=== PATIENT | male | born 1955 | race Caucasian/White ===

== ENCOUNTER → 2016-10-16 | Outpatient (CLI) | payer OTHER, BC ==
[~2016-10-16] MED LIST: ACET-1138 PO; ACET1TAB84 PO; ADAL40KI INJ; ADAL40KI SC; ASCO10003 PO; ASPEC81 PO; BNT10 PO; CARV6.252 PO; CEPH500C PO; DOXY100C76 PO; FOLI800T PO; HYDR-5688 PO; LOPE1TAB25 PO; LOPE2TAB74 PO; MULTTAB58 PO; OMEGCAP2 PO; ONDA8TAB6 PO; OXYC1TAB3 PO; RXC5 PO; SNK PO; TAMS0.4C38 PO; TRAM-10 PO
[2016-10-16 13:11] LABS: BLOOD UREA NITROGEN 14 mg/dl (7-18); BUN/CREATININE RATIO 15.3 (10-20); CARBON DIOXIDE 27 mmol/L (21-32); CHLORIDE 105 mmol/L (98-107); CREATININE 0.93 mg/dl (0.60-1.40); GLUCOSE 82 mg/dl (70-99); POTASSIUM 3.9 mmol/L (3.5-5.1); SODIUM 140 mmol/L (136-145)
[2016-10-16 13:23] LABS: ALKALINE PHOSPHATASE 60 U/L (45-117); ALT/SGPT 31 U/L (12-78); AST/SGOT 16 U/L (15-37); CHOLESTEROL 174 mg/dl (0-200); CHOLESTEROL/HDL RATIO 3.8; HDL CHOLESTEROL 46 mg/dl; LDL CHOLESTEROL CALCULATED 72 mg/dl; TRIGLYCERIDES 278 mg/dl (0-150); VERY LOW DENSITY LIPOPROT CALC 56 mg/dl
[2016-10-18 12:14] LABS: HEPATITIS C VIRAL RNA BY PCR <15 NOT DETECTED IU/ML (<15); HEPATITIS C VIRAL RNA(LOG) PCR <1.18 NOT DETECTED LOG IU/ML (<1.18)
== END | disposition home or self-care (01) ==
LOC: C.LABPBG 08:13
PROVIDERS: ATTEND Family Medicine
DX: I10 Essential (primary) hypertension (principal); E78.5 Hyperlipidemia, unspecified; R89.9 Unspecified abnormal finding in specimens from other organs, systems and tissues

== ENCOUNTER 2016-12-26 10:01 | Inpatient (IN) | payer OTHER, BC ==
[2016-11-09 14:03] VITALS: BMI 39.0
--- NOTE | 2016-11-09 14:51 | PAT Medication Instructions ---
Service Date Nov 09, 2016. Current Home Medication List Acetaminophen (Tylenol Arthritis Ext Rel), 1,300 MG PO BID PRN for RN Adalimumab (Humira Pen), 40 MCG INJ [id number] Carvedilol (Coreg), 6.25 MG PO BID Dicyclomine HCl (Dicyclomine HCl), 10 MG PO TID PRN for CRAMPING Folic Acid (Folic Acid), 800 MCG PO QAM Loperamide Hcl (Loperamide A-D), 4 MG PO UD PRN for RN Multiple Vitamin (Multivitamin), 1 TAB PO QAM [place]-3 Fatty Acids (Fish Oil), 1,000 MG PO QAM Oxycodone Ir (Roxicodone Ir), 1-2 TAB PO Q4H PRN for Severe Pain Medication Instructions For Your Scheduled Surgery Adalimumab (Humira Pen), 40 MCG INJ [id number] (per surgeon/GI doctor's instructions) - Hold the following medications 2 weeks prior to surgery: [place]-3 Fatty Acids (Fish Oil), 1,000 MG PO QAM - Hold the following medications the morning of surgery: Multiple Vitamin (Multivitamin), 1 TAB PO QAM Folic Acid (Folic Acid), 800 MCG PO QAM Dicyclomine HCl (Dicyclomine HCl), 10 MG PO TID PRN for CRAMPING Loperamide Hcl (Loperamide A-D), 4 MG PO UD PRN for RN - Take the following medications the morning of surgery with a sip of water: Oxycodone Ir (Roxicodone Ir), 1-2 TAB PO Q4H PRN for Severe Pain (can take up to four hours prior to surgery if needed) Acetaminophen (Tylenol Arthritis Ext Rel), 1,300 MG PO BID PRN for RN (if needed) Carvedilol (Coreg), 6.25 MG PO BID - Take the following medications as scheduled the night before surgery: Oxycodone Ir (Roxicodone Ir), 1-2 TAB PO Q4H PRN for Severe Pain Dicyclomine HCl (Dicyclomine HCl), 10 MG PO TID PRN for CRAMPING Carvedilol (Coreg), 6.25 MG PO BID Acetaminophen (Tylenol Arthritis Ext Rel), 1,300 MG PO BID PRN for RN Loperamide Hcl (Loperamide A-D), 4 MG PO UD PRN for RN If you have any questions please call us at [phone] or [phone] ( [place]) or [phone]
--- NOTE | 2016-11-09 15:08 | DIAGNOSTIC IMAGING REPORT ---
CHEST PREADMISSION(PA/LAT) CLINICAL HISTORY: Preoperative evaluation. COMPARISON STUDY: Chest radiograph June 17, 2014. FINDINGS: A left shoulder arthroplasty is partially imaged. Lung volumes are normal. The lungs are clear. There is no pneumothorax or pleural effusion. Cardiac size is normal. Mediastinal contours are normal. There is no evidence of pulmonary edema. IMPRESSION: No acute cardiopulmonary findings. Electronically signed by: Kale Cabrales M.D. 11/09/2016 3:06 PM Dictated Date/Time: 11/09/2016 3:06 PM
[2016-11-09 15:15] LABS: BASO % 0.1 %; BASO ABS # 0.01 K/uL (0-0.2); COMPLETE YES; EOS % 1.5 %; HEMATOCRIT 41.8 % (42-52); IG% 0.1 %; LYMPH % 32.7 %; LYMPH ABS # 2.21 K/uL (1.2-3.4); MEAN CELL VOLUME 84.6 fL (80-100); MEAN CORPUSCULAR HEMOGLOBIN 27.9 pg (25-34); MEAN PLATELET VOLUME 10.8 fL (7.4-10.4); MONO % 12.4 %; NEUT % 53.2 %; PLATELET COUNT 231 K/uL (130-400); RED BLOOD COUNT 4.94 M/uL (4.7-6.1); URINE APPEARANCE CLEAR (CLEAR); URINE BILIRUBIN NEG (NEG); URINE COLOR YELLOW; URINE NITRITE NEG (NEG); URINE PH 5.5 (4.5-7.5); UROBILINOGEN NEG (NEG); WHITE BLOOD COUNT 6.76 K/uL (4.8-10.8); ZZUR CULT IF INDIC CLEAN CATCH NO
[2016-11-09 15:22] LABS: MANUAL MICROSCOPIC REQUIRED? NO; REVIEW REQ? NO
[2016-11-09 15:32] LABS: PROTHROMBIN TIME (PATIENT) 10.5 SECONDS (9.0-12.0)
--- NOTE | 2016-12-25 12:16 | HISTORY & PHYSICAL EXAMINATION ---
DATE OF ADMISSION: 12/26/2016 CHIEF COMPLAINT: Left hip pain. HISTORY OF PRESENT ILLNESS: Mr. Brewster is a 61-year-old male with an acute onset of left hip pain. The patient fell in July and had immediate onset of pain in his left hip. The pain has been progressive since that time. He has failed conservative treatment. He has had narcotic injections and physical therapy. He also uses a cane to ambulate. He is now scheduled for left hip replacement. PAST MEDICAL HISTORY: Crohn's disease, sleep apnea, and hypertension. He denies heart disease, diabetes or DVT. PAST SURGICAL HISTORY: Shoulder replacement in 2008, lumbar decompression in 2015, and RKA in 2011. SOCIAL HISTORY: The patient drinks one drink per week. He denies tobacco use. He lives in a single-olman home. 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 FAMILY HISTORY: Negative for DVT. MEDICATIONS: Carvedilol 6.25 mg 1 tablet b.i.d., omega-3 1280 mg daily, Opti-Men multivitamin 1 tablet daily, folic acid 800 mcg daily, vitamin C 1000 mg daily, Humira 40 mcg q. 2 weeks, dicyclomine 10 mg 3 times daily, loperamide 2 mg, and oxycodone 5 mg p.r.n. ALLERGIES: SULFA. REVIEW OF SYSTEMS: See HPI. Ten other systems reviewed, all negative. PHYSICAL EXAMINATION: VITAL SIGNS: Height 5 feet 10. Weight 269 pounds. BMI 39. GENERAL: This is a well-developed and well-nourished male, who is alert and oriented x3. Mood and affect are appropriate. HEENT: Normocephalic and atraumatic. Mucous membranes are moist and intact. NECK: Supple without lymphadenopathy. HEART: Regular rate and rhythm without murmurs, rubs or gallops. LUNGS: Clear to auscultation without wheezes or rhonchi. ABDOMEN: Soft and nontender. Bowel sounds are equal and active. EXTREMITIES: No ecchymosis, redness or warmth. Thigh and calf are soft and nontender. He has decreased range of motion of the left hip. Range of motion is decreased. He is neurovascularly intact. He has +5/5 strength. He walks with an antalgic gait. X-RAY EXAMINATION: AP and lateral views show joint space narrowing and osteophyte formation of the left hip. IMPRESSION: Degenerative joint disease, left hip. PLAN: The patient will be admitted for a left total hip arthroplasty. We will plan on aspirin for DVT prophylaxis. He will have [facility] for home physical therapy. PCP is Dr. Chantale Gregory.
[~2016-12-26] VITALS: Ht 177.8 cm; Wt 123.7 kg
[2016-12-26] VITALS (7 sets, daily range): BP systolic 115–152; BP diastolic 71–93; PULSE 71–84; TEMP 36.3–37; O2SAT 95–99; Ht 177.8 cm; Wt 123.7 kg
[~2016-12-26 10:01] MED LIST changes: -ACET-1138 PO; +ACETAMINOPHEN 500 MG TAB PO SCH; -ADAL40KI SC; -ASCO10003 PO; -ASPEC81 PO; +BUPIVACAINE 0.5 % 5 MG/1 ML PF 10ML VIAL ONE; +CEFAZOLIN 3000 MG/65 ML D5W 65 ML IV SCH; -CEPH500C PO; +DEXAMETHASONE 4 MG TAB PO SCH; -DOXY100C76 PO; +FAMOTIDINE 20 MG TAB PO SCH; +GABAPENTIN 300 MG CAP PO SCH; -HYDR-5688 PO; +LACTATED RINGER'S 1000ML 1,000 ML IV SCH; +LACTATED RINGER'S 1000ML 500 ML IV ONE; +LACTATED RINGER'S 1000ML IV SCH; -LOPE1TAB25 PO; +METOCLOPRAMIDE HCL 10 MG TAB PO SCH; -ONDA8TAB6 PO; +OXYCODONE HCL 10 MG TABCR (OXYCONTIN) PO SCH; +POLYMYXIN B SULFATE 100,000 UNITS in NSS 100ML IR SCH; +ROPIVACAINE 5MG/ML 30 ML 150 MG, BUPIVACAINE/EPINEPHR 0.5% MPF 30 ML, KETOROLAC TROMETH... INFIL SCH; -RXC5 PO; -SNK PO; -TAMS0.4C38 PO; -TRAM-10 PO; +TRANEXAMIC ACID INJ 1,000 MG in SODIUM CHLORIDE 0.9% 100ML 100 ML IV SCH; +VANCOMYCIN INJ 400 MG in NSS 100ML IR SCH
--- NOTE | 2016-12-26 11:35 | History & Physical Bridge Note ---
H&P Re-Evaluation Bridge Note: I have examined the patient, reviewed the History & Physical and in the interval since the performance of the History & Physical I have noted the following changes of clinical significance: No changes noted
[2016-12-26] MEDS ORDERED: PROPOFOL IV EMULSION 10 MG/ML 20 ML VIAL IV ONE (11:36)
[2016-12-26] MEDS ORDERED: MIDAZOLAM HCL 1 MG/ML 2ML VIAL ONE (11:36)
[2016-12-26] MEDS ORDERED: FENTANYL CITRATE INJ 50 MCG/1 ML 2 ML VIAL ONE (11:36)
[2016-12-26] MEDS ORDERED: LIDOCAINE HCL 2% 2 ML VIAL (20MG/ML) ONE (11:36)
[2016-12-26] MEDS: TRANEXAMIC ACID INJ 1,000 MG in SODIUM CHLORIDE 0.9% 100ML 100 ML IV SCH ×2 (12:03→17:22)
[2016-12-26] MEDS ORDERED: POVIDONE-IODINE OP SOLN 30 ML BTL ONE (12:04)
[2016-12-26] MEDS ORDERED: ORTHO JOINT ANESTHETIC ONE (12:04)
[2016-12-26] MEDS ORDERED: BACITRACIN 50000 UNIT VIAL ONE (12:05)
[2016-12-26] MEDS ORDERED: LACTATED RINGER'S 1000ML 1,000 ML IV PRN (12:21)
[2016-12-26] MEDS ORDERED: ONDANSETRON INJ 2 MG/ML 2 ML VIAL IV PRN ×2 (12:30→15:45)
[2016-12-26] MEDS ORDERED: SUCCINYLCHOLINE CHLORIDE 20 MG/ML 10 ML VIAL IV ONE (13:33)
[2016-12-26] MEDS ORDERED: ROCURONIUM BROMIDE 10 MG/ML 5 ML VIAL ONE (13:34)
[2016-12-26] MEDS ORDERED: HYDROmorphone INJ 2 MG/ML SYR/VIAL ONE (14:09)
[2016-12-26] MEDS ORDERED: MoRPHine SULFATE 2 MG/ML CARP ONE ×2 (14:58→15:19)
--- NOTE | 2016-12-26 15:16 | DIAGNOSTIC IMAGING REPORT ---
INTRAOPERATIVE RADIOGRAPH CLINICAL HISTORY: Left hip arthroplasty. Fluoroscopy time: 12 seconds. FINDINGS: A single spot fluoroscopic view of the left hip is presented. A bipolar left hip arthroplasty is in near anatomic alignment. A single cortical lag screw transfixes the acetabular cup. There is no evidence of fracture on this fluoroscopic image. IMPRESSION: Intraoperative image from a left hip arthroplasty procedure as above. Electronically signed by: Gonzalez Reyna M.D. 12/26/2016 3:15 PM Dictated Date/Time: 12/26/2016 3:14 PM
--- NOTE | 2016-12-26 15:43 | [facility] Post Operative Brief Note ---
Immediate Operative Summary Operative Date December 26, 2016. Pre-Operative Diagnosis Degenerative Joint disease, Left Hip Post-Operative Diagnosis Same as preop MORBID OBESITY Procedure(s) Performed Left total hip artheoplasty. direct anterior approach, Uncemented Surgeon Dr. Naun Aguilar Sales Marketing Manager Surgeon(s) Ansley Morales PA-C Estimated Blood Loss 250 ML Findings djd obese Specimens A. Left Femoral Head Complication(s) None Disposition Recovery Room / PACU
[2016-12-26] MEDS ORDERED: SOD PHOSPHATE/SOD BIPHOSPHATE ENEMA 132 ML BTL PR PRN (15:45)
[2016-12-26] MEDS ORDERED: BISACODYL 10 MG SUPP PR PRN (15:45)
[2016-12-26] MEDS ORDERED: DICYCLOMINE HCL 10 MG CAP PO PRN (15:45)
[2016-12-26] MEDS ORDERED: TRAMADOL HCL 50 MG TAB PO PRN (15:45)
[2016-12-26] MEDS ORDERED: MoRPHine SULFATE 2 MG/ML CARP IV PRN (15:45)
[2016-12-26] MEDS ORDERED: LOPERAMIDE HCL 2 MG CAP PO PRN (15:45)
[2016-12-26] MEDS ORDERED: MAGNESIUM HYDROXIDE SUSP 30 ML UDC PO PRN (15:45)
[2016-12-26] MEDS ORDERED: ALUMINUM/MAGNESIUM/SIMETH (MAALOX MAX) 30 ML UDC PO PRN (15:45)
[2016-12-26] MEDS ORDERED: ZOLPIDEM TARTRATE 5 MG TAB PO PRN (15:45)
[2016-12-26] MEDS ORDERED: METOCLOPRAMIDE HCL INJ 5 MG/ML 2 ML VIAL IV PRN (15:45)
[2016-12-26] MEDS ORDERED: DiphenhydrAMINE HCL 50 MG/ML VIAL IV PRN (15:45)
[2016-12-26] MEDS: FENTANYL CITRATE INJ 50 MCG/1 ML 2 ML VIAL IV PRN ×4 (15:52→16:30)
[2016-12-26] MEDS ORDERED: HYDROmorphone INJ 1 MG/ML SYR IV PRN (16:15)
[2016-12-26] MEDS ORDERED: KETOROLAC TROMETHAMINE 30 MG/ML VIAL ONE (16:21)
--- NOTE | 2016-12-26 16:27 | DIAGNOSTIC IMAGING REPORT ---
LEFT PELVIS/UNILATERAL HIP 1 VIEW CLINICAL HISTORY: Postoperative evaluation. COMPARISON: None FINDINGS: Alignment of the total left hip arthroplasty is anatomic. There is no periprosthetic fracture or unexpected radiopaque foreign body. Drain is in place. There is an acetabular screw. Lumbar spine fusion hardware is partially imaged. Soft tissue calcification of the medial proximal left thigh is chronic. IMPRESSION: Expected findings following total left hip arthroplasty. Electronically signed by: Kale Cabrales M.D. 12/26/2016 4:25 PM Dictated Date/Time: 12/26/2016 4:06 PM
[2016-12-26] MEDS ORDERED: KETOROLAC TROMETHAMINE 30 MG/ML VIAL IV. ONE (16:30)
--- NOTE | 2016-12-26 16:44 | Anesthesiology Progress Note ---
Anesthesia Post Op Note Date & Time December 26, 2016 at 16:44 Vital Signs Pain Intensity: 6 Vital Signs Past 12 Hours Date Time Temp Pulse Resp B/P Pulse Ox O2 Delivery O2 Flow Rate FiO2 12/26/16 16:35 82 14 154/91 98 Nasal Cannula 3 12/26/16 16:25 80 16 152/88 94 Nasal Cannula 3 12/26/16 16:15 76 19 145/90 97 Nasal Cannula 3 12/26/16 16:05 83 15 163/92 99 Mask 10 12/26/16 15:55 80 16 160/87 100 Mask 10 12/26/16 15:45 37.3 86 16 172/94 99 Mask 10 12/26/16 10:10 37 73 20 137/90 95 Room Air Notes Mental Status: alert / awake / arousable, participated in evaluation Pt Amnestic to Procedure: Yes Nausea / Vomiting: adequately controlled Pain: adequately controlled Airway Patency, RR, SpO2: stable & adequate BP & HR: stable & adequate Hydration State: stable & adequate Anesthetic Complications: no major complications apparent
--- NOTE | 2016-12-26 17:39 | OPERATIVE REPORT ---
DATE OF OPERATION: 12/26/2016 PREOPERATIVE DIAGNOSES: 1. Degenerative arthritis, left hip. 2. Morbid obesity, body mass index of 40. POSTOPERATIVE DIAGNOSES: Same. PROCEDURE: Left total hip replacement. SURGEON: Fernando Aguilar MD PICKLE SORTER: JOSH Slater ANESTHESIA: General. BLOOD LOSS: 250 mL. REPLACEMENT FLUIDS: 1800 mL of crystalloid. DRAINS: Hemovac x2. CULTURES: None. COMPLICATIONS: None. COMPONENTS USED: Carney \T\ Nephew Anthology hip system: Acetabulum size 54, femur size 5 standard offset, femoral head 0, neck length 36 mm. NOTE: JOSH Slater was present and assisted throughout due to the complicated nature of this case. She helped with preparation and set up, first assisted throughout and personally closed the fascial, subcutaneous and skin layers and applied the postoperative dressing. DESCRIPTION OF PROCEDURE: Following satisfactory general, the patient was supine. The left leg was placed in the traction device, the right leg in the well leg dean, and the left leg was prepared with ChloraPrep and draped sterilely. Following a surgical time-out, an anterior approach was performed in the interval between the sartorius and tensor muscles. The circumflex femoral vessels were identified and ligated. The approach was difficult and required additional time and effort because of the patient's morbidly obese body habitus. The arthritic femoral neck and head were exposed and trimmed. The femoral neck and head were removed. The acetabular self-retaining retractor was placed. Acetabular exposure was difficult and required extra time. The acetabulum was reamed and under fluoroscopic control, a 54 shell was impacted into an anatomic position and secured with a dome screw. Local anesthetic and the polyethylene liner were placed. Following irrigation, attention was turned to the femur. The femur was prepared up to the size 5. Intraoperative fluoroscopy showed good fit and fill of the proximal canal and temple of leg lengths using fluoroscopic landmarks. The hip was dislocated. The trial component was removed. The final implant was then placed and after irrigation, the hip was reduced with fluoroscopy confirming the position. A Betadine soak was performed. After 5 minutes, the Betadine was irrigated. The capsule was closed with #1 Vicryl interrupted. A drain was placed. The fascia was closed with a running suture of #1 Vicryl. After irrigation, the subcutaneous tissues were closed with #1 and 2-0 Vicryl and the skin with a running subcuticular stitch of 3-0 V-Loc. Dermabond and a dry dressing were applied. The patient was returned to his bed in stable condition. I attest to the content of the Intraoperative Record and any orders documented therein. Any exceptio ns are noted below.
[2016-12-26] MEDS: OXYCODONE HCL IR 5 MG TAB (IMMEDIATE RELEASE) PO PRN ×2 (18:22→22:55)
[2016-12-26] MEDS: D5W AND 1/2NSS + 20MEQ KCL 1,000 ML IV SCH (20:02)
[2016-12-26] MEDS: ASPIRIN 81 MG ECTAB PO SCH (20:54)
[2016-12-26] MEDS: CARVEDILOL 6.25 MG TAB PO SCH (20:54)
[2016-12-26] MEDS ORDERED: SENNA 8.6 MG TAB PO SCH (21:00)
[2016-12-26] MEDS: CEFAZOLIN IV 2,000 MG in DEXTROSE 5% 50ML 50 ML IV SCH (21:25)
[2016-12-26] MEDS: ACETAMINOPHEN 500 MG TAB PO SCH (21:25)
[2016-12-26] MEDS ORDERED: TRANEXAMIC ACID INJ 1,000 MG in SODIUM CHLORIDE 0.9% 100ML 100 ML IV ONE (22:00)
[2016-12-26] MEDS: KETOROLAC TROMETHAMINE 30 MG/ML VIAL IV. SCH (23:47)
[2016-12-27] MEDS: D5W AND 1/2NSS + 20MEQ KCL 1,000 ML IV SCH (03:45)
[2016-12-27 04:10] VITALS: BP 113/77; PULSE 77; TEMP 36.6; O2SAT 94
[2016-12-27 05:48] LABS: COMPLETE YES; HEMATOCRIT 36.4 % (42-52); IG% 0.3 %; LYMPH % 10.9 %; LYMPH ABS # 1.22 K/uL (1.2-3.4); MEAN CELL VOLUME 87.7 fL (80-100); MEAN CORPUSCULAR HEMOGLOBIN 28.4 pg (25-34); MEAN CORPUSCULAR HGB CONC 32.4 g/dl (32-36); MEAN PLATELET VOLUME 10.4 fL (7.4-10.4); MONO % 7.7 %; NEUT % 81.1 %; PLATELET COUNT 206 K/uL (130-400); RED BLOOD COUNT 4.15 M/uL (4.7-6.1); WHITE BLOOD COUNT 11.23 K/uL (4.8-10.8)
[2016-12-27] MEDS: KETOROLAC TROMETHAMINE 30 MG/ML VIAL IV. SCH ×2 (06:03→11:47)
[2016-12-27] MEDS: CEFAZOLIN IV 2,000 MG in DEXTROSE 5% 50ML 50 ML IV SCH (06:03)
[2016-12-27] MEDS: ACETAMINOPHEN 500 MG TAB PO SCH (06:04)
[2016-12-27 06:21] LABS: BUN/CREATININE RATIO 14.1 (10-20); CALCIUM 8.3 mg/dl (8.5-10.1); POTASSIUM 4.6 mmol/L (3.5-5.1)
[2016-12-27 06:50] VITALS: BP 111/66; PULSE 63; TEMP 36.8; O2SAT 91
--- NOTE | 2016-12-27 08:14 | Discharge Instructions ---
Discharge Instructions Date of Service December 27, 2016. Admission Reason for Admission: Left Hip Degenerative Arthritis Discharge Discharge Diagnosis / Problem: SP LEFT LEFT JACKSON Discharge Goals Goal(s): Decrease discomfort, Improve function, Increase independence Activity Recommendations Activity Limitations: per Instructions/Follow-up section . Instructions / Follow-Up Instructions / Follow-Up ACTIVITY RECOMMENDATIONS: SELF CARE INSTRUCTIONS AFTER TOTAL HIP REPLACEMENT : Direct Anterior Approach Until the incision and soft tissues around your hip have healed, there is a possibility that the hip prosthesis could dislocate. A. Hip flexion ( Up & Down out of chair or steps ) may be difficult. This is normal. B. Numbness in front of the thigh is also normal for a few weeks. C. Use hand rails when walking on stairs. D. Wear low heeled shoes with non-slip soles. E. Be sure that your floors are free of things that could trip you - throw rugs , electrical cords, small objects. Avoid wet and waxed floors, especially with crutches and canes. F. Try to walk several times a day with rest periods between. G. Continue with all the exercises taught to you in the hospital. Again, make walking a part of your daily routine. SPECIAL CARE INSTRUCTIONS: VERY IMPORTANT TO READ AND REVIEW A. You may still be at risk for phlebitis and blood clots. 1. Wear surgical stockings (IGNACIA hose) for 2 weeks after surgery to improve circulation and reduce swelling. 2. Take Aspirin 81mg twice daily for 4 weeks or as directed by your doctor. This is your blood thinner. 3. High risk patients may be prescribed a stronger blood thinner if necessary. 4. If you are on Coumadin normally, your family doctor/ross furnace operator should monitor your blood work. Expect a phone call the day of or the day after bloodwork is drawn to adjust your dosage. B. You must take antibiotics before having dental work, bladder, bowel and other surgery. Your doctor will provide you with a permanent card to carry describing precautions. C. Call [facility] if you have a fever, redness or swelling around the incision, cloudy drainage from incision, or sudden increase in pain in your hip, not relieved by your regular pain medication. D. Please call the office at if you have any concerns or questions about your operation or recovery. * YOU MAY SHOWER, NO TUB BATHS UNTIL CLEARED BY YOUR DOCTOR. - Keep an extra close eye on the top portion of your incision. Be sure to keep clean & dry. * WEAR IGNACIA HOSE 20 HOURS PER DAY FOR 2 WEEKS. * YOU MAY PROGRESS FROM A WALKER, TO A CANE, TO INDEPENDENT AT YOUR OWN PACE. * MOST PATIENTS WILL HAVE HOME NURSING FOR THERAPY. IF YOU DECIDE TO DO OUTPATIENT PHYSICAL THERAPY, PLEASE SCHEDULE THIS 3 TIMES PER WEEK. * DERMABOND Prineo- This is a mesh tape dressing that is covered with glue. It should remain in place until the incision is properly healed, usually 10-14 days. This dressing is designed to naturally slough off. You may trim the excess mesh tape as it peels off. Incision may be briefly wet in a shower. Dry immediately by blotting with a clean, dry towel. Do not bath or swim until instructed by your doctor. Do not scratch, rub, or pick at the dressing. Do not apply any topical ointments or lotions until dressing is completely removed and/or instructed by your doctor. There may be a small piece of suture material at one end of your incision. Do not pull or trim this. If it is bothersome or catching on clothing, you may cover it with a band-aid. FOLLOW UP VISIT: If appointment is not already scheduled: Please call [facility] to make a follow-up appointment for 2 weeks after your surgery at . Current Hospital Diet Patient's current hospital diet: Regular Diet Discharge Diet Recommended Diet: Regular Diet Procedures Procedures Performed: Left total hip artheoplasty. direct anterior approach, Uncemented Pending Studies Studies pending at discharge: no Laboratory Results Lipid Panel Test 10/16/16 08:19 Range/Units Triglycerides Level 278 H 0-150 mg/dl Cholesterol Level 174 0-200 mg/dl HDL Cholesterol 46 mg/dl Cholesterol/HDL Ratio 3.8 LDL Cholesterol, Calculated 72 mg/dl Medical Emergencies . Who to Call and When: Medical Emergencies: If at any time you feel your situation is an emergency, please call 911 immediately. . Non-Emergent Contact Non-Emergency issues call your: Surgeon . "Provider Documentation" section prepared by Ansley Morales. . VTE Core Measure Inpt VTE Proph given/why not?: Other Anticoagulation, T.E.D. Stockings, SCD's [place] Drug Monitoring Program Search Results: patient reviewed within database, no issues identified
[2016-12-27] MEDS ORDERED: ACET-1138 PO (08:17)
[2016-12-27] MEDS ORDERED: ASPEC81 PO (08:17)
[2016-12-27] MEDS ORDERED: SNK PO (08:17)
[2016-12-27] MEDS ORDERED: OXYC1TAB3 PO (08:17)
[2016-12-27] MEDS ORDERED: ONDA8TAB6 PO (08:17)
[2016-12-27 08:24] VITALS: BP 104/68; PULSE 75; TEMP 36.6; O2SAT 94
--- NOTE | 2016-12-27 08:52 | DISCHARGE SUMMARY ---
DISCHARGE DIAGNOSIS: Degenerative joint disease, left hip. SECONDARY DIAGNOSIS: None. CONSULTS: None. COMPLICATIONS: None. PROCEDURE: The patient underwent a left total hip arthroplasty, direct anterior approach with Dr. Navin Aguilar on, 12/26/2016. BRIEF HISTORY: Please see previously dictated history and physical. HOSPITAL SUMMARY: The patient was admitted on the above day for the above procedure. Procedure went without complication. Postop day 1, the patient was feeling well without complaints. He denied chest pain or shortness of breath. Vital signs were stable. He was afebrile. Dressing was clean, dry and intact. He was neurovascularly intact. Calves were soft and nontender. Hemovac drained 175 and 100 mL respectively per shift. Hemoglobin was 11.8. The patient began physical therapy per protocol. He was discharged to home later that day in stable condition. For further review, please see the chart. Lab, x-ray data and discharge instructions as per chart.
[2016-12-27] MEDS ORDERED: PANTOprazole SOD 40 MG TAB PO SCH (09:00)
[2016-12-27] MEDS ORDERED: MULTIVITAMIN TAB PO SCH (09:00)
[2016-12-27] MEDS ORDERED: FoLIC ACID TAB 400 MCG TAB PO SCH (09:00)
[2016-12-27] MEDS: ASPIRIN 81 MG ECTAB PO SCH (09:02)
[2016-12-27] MEDS: CARVEDILOL 6.25 MG TAB PO SCH (09:03)
[2016-12-27 10:45] VITALS: BP 123/68; PULSE 70; O2SAT 95
[2016-12-27 11:16] VITALS: BP 104/68; PULSE 75; TEMP 36.6; O2SAT 94
[2016-12-27 12:16] VITALS: BP 108/64; PULSE 78; TEMP 36.7; O2SAT 95
--- NOTE | 2016-12-27 13:15 | Anesthesiology Progress Note ---
Anesthesia Post Op Note Date & Time December 27, 2016 at 13:15 Vital Signs Vital Signs Past 12 Hours Date Time Temp Pulse Resp B/P Pulse Ox O2 Delivery O2 Flow Rate FiO2 12/27/16 12:16 36.7 78 15 108/64 95 Room Air 12/27/16 11:16 36.6 75 15 94 Room Air 12/27/16 08:24 36.6 75 15 104/68 94 Room Air 12/27/16 07:30 Room Air 12/27/16 06:50 36.8 63 19 111/66 91 Room Air 12/27/16 04:10 36.6 77 20 113/77 94 Room Air Notes Mental Status: alert / awake / arousable, participated in evaluation Pt Amnestic to Procedure: Yes Nausea / Vomiting: adequately controlled Pain: adequately controlled Airway Patency, RR, SpO2: stable & adequate BP & HR: stable & adequate Hydration State: stable & adequate Anesthetic Complications: no major complications apparent
== END 2016-12-27 13:43 | disposition home health service (06) | DRG 470 ==
LOC: ENRESERVTM → ENRESERVDT → C.ACU 10:01 → C.3E 11:02
PROVIDERS: ADMIT Orthopaedic Surgery; ATTEND Orthopaedic Surgery
PROC: 0SRB04A Replacement of Left Hip Joint with Ceramic on Polyethylene Synthetic Substitute, Uncemented, Open Approach (ICD-10-PCS; principal; 2016-12-26 12:00)
DX: M16.12 Unilateral primary osteoarthritis, left hip (principal); Z68.41 Body mass index [BMI] 40.0-44.9, adult; K59.00 Constipation, unspecified; G47.33 Obstructive sleep apnea (adult) (pediatric); N40.0 Benign prostatic hyperplasia without lower urinary tract symptoms; I10 Essential (primary) hypertension; D64.9 Anemia, unspecified; M54.10 Radiculopathy, site unspecified; M54.5 Low back pain; Z98.1 Arthrodesis status; E66.01 Morbid (severe) obesity due to excess calories; Z99.89 Dependence on other enabling machines and devices; Z96.619 Presence of unspecified artificial shoulder joint; Z96.651 Presence of right artificial knee joint; Z79.899 Other long term (current) drug therapy; Z79.891 Long term (current) use of opiate analgesic

== ENCOUNTER → 2017-01-01 | Outpatient (CLI) | payer OTHER, BC ==
[~2017-01-01] MED LIST changes: +ACET-1138 PO; -ACET1TAB84 PO; -ACETAMINOPHEN 500 MG TAB PO SCH; +ASPEC81 PO; -BUPIVACAINE 0.5 % 5 MG/1 ML PF 10ML VIAL ONE; -CEFAZOLIN 3000 MG/65 ML D5W 65 ML IV SCH; +CEPH500C PO; -DEXAMETHASONE 4 MG TAB PO SCH; +DOXY100C76 PO; -FAMOTIDINE 20 MG TAB PO SCH; -GABAPENTIN 300 MG CAP PO SCH; -LACTATED RINGER'S 1000ML 1,000 ML IV SCH; -LACTATED RINGER'S 1000ML 500 ML IV ONE; -LACTATED RINGER'S 1000ML IV SCH; -METOCLOPRAMIDE HCL 10 MG TAB PO SCH; +ONDA8TAB6 PO; -OXYCODONE HCL 10 MG TABCR (OXYCONTIN) PO SCH; -POLYMYXIN B SULFATE 100,000 UNITS in NSS 100ML IR SCH; -ROPIVACAINE 5MG/ML 30 ML 150 MG, BUPIVACAINE/EPINEPHR 0.5% MPF 30 ML, KETOROLAC TROMETH... INFIL SCH; +SNK PO; +TAMS0.4C38 PO; -TRANEXAMIC ACID INJ 1,000 MG in SODIUM CHLORIDE 0.9% 100ML 100 ML IV SCH; -VANCOMYCIN INJ 400 MG in NSS 100ML IR SCH
== END ==
LOC: C.LABSPEC 17:09
PROVIDERS: ATTEND Nurse Practitioner Family
DX: R33.9 Retention of urine, unspecified (principal)

== ENCOUNTER 2017-03-21 18:24 | Emergency (ER) | payer OTHER ==
[~2017-03-21] VITALS: Ht 177.8 cm; Wt 120.4 kg
[~2017-03-21 18:24] MED LIST changes: -CEPH500C PO; -DOXY100C76 PO; -TAMS0.4C38 PO
[2017-03-21 18:29] VITALS: Ht 177.8 cm; Wt 120.4 kg
[2017-03-21] MEDS ORDERED: VANCOMYCIN INJ 2,800 MG in SODIUM CHLORIDE 0.9% 500ML 500 ML IV STA (19:07)
[2017-03-21] MEDS ORDERED: SODIUM CHLORIDE 0.9% 500ML 500 ML IV STA (19:07)
[2017-03-21] MEDS ORDERED: SODIUM CHLORIDE 0.9% 1000ML 1,000 ML IV STA (19:07)
[2017-03-21] MEDS ORDERED: CEFTRIAXONE SOD INJ 1 GM ADDVIAL IV STA (19:07)
--- NOTE | 2017-03-21 19:12 | EMERGENCY ROOM VISIT NOTE ---
History Report prepared by Amrita: Pepe Carter Under the Supervision of: Dr. Yamel Phillip M.D. First contact with patient: 18:39 Chief Complaint: INFECTION Stated Complaint: POST OP HIP REPLACEMENT,FEVER,REDNESS AROUND SITE History of Present Illness The patient is a 61 year old male who presents to the Emergency Room with complaints of left hip pain starting about 2 weeks ago. He was having left hip itchiness for the past few weeks. This morning, he started having erythema around the left hip. He denies any worsening pain with ambulation. He rates a pain intensity of 6/10. He also complains of generalized weakness. Yesterday, he started having a fever with the highest temperature of 102.4 degrees Fahrenheit. The patient had a hip replacement by Dr. Aguilar on December 26. Source of History: patient Onset: about 2 weeks ago Position: other (left hip) Symptom Intensity: 6/10 Quality: other (erythema) Associated Symptoms: + fevers, + weakness (generalized) Review of Systems See HPI for pertinent positives & negatives. A total of 10 systems reviewed and were otherwise negative. Past Medical & Surgical Medical Problems: (1) Acute renal failure (2) Crohn's disease (3) Diverticulosis Colon (W/O Ment Of Hemorrhage) (4) Hypertension (5) Hypertension Nos (6) Hypokalemia (7) Hypomagnesemia (8) Hypophosphatemia (9) Knee effusion, right (10) Localized, primary osteoarthritis of the lower leg (11) Lumbar stenosis with neurogenic claudication (12) Obesity, Nos (13) Sepsis (14) Sepsis (15) Small bowel obstruction (16) Small bowel obstruction Surgical Problems: (1) Hip Joint Replacement Status (2) History of knee replacement, total (3) Post-operative state (4) Shoulder Joint Replacement Status Family History FH: heart attack FH: stroke Heart disease Hypertension Social History Smoking Status: Never Smoker Alcohol Use: none Drug Use: none Marital Status: Housing Status: lives with family Occupation Status: employed Current/Historical Medications Scheduled Acetaminophen (Tylenol Extra Strength), 1,000 MG PO Q8 Adalimumab (Humira Pen), 40 MCG INJ [id number] Carvedilol (Coreg), 6.25 MG PO BID Cephalexin Monohydrate (Keflex), 500 MG PO QID Doxycycline Monohydrate (Monodox), 100 MG PO BID Folic Acid (Folic Acid), 800 MCG PO QAM Multiple Vitamin (Multivitamin), 1 TAB PO QAM [place]-3 Fatty Acids (Fish Oil), 1,000 MG PO QAM Tamsulosin Hcl (Flomax), 0.4 MG PO QAM Scheduled PRN Dicyclomine HCl (Dicyclomine HCl), 10 MG PO TID PRN for CRAMPING Loperamide Hcl (Loperamide A-D), 4 MG PO UD PRN for RN Allergies Coded Allergies: Sulfa Antibiotics (Verified Allergy, Intermediate, RASH, 03/21/17) Physical Exam Vital Signs Date Time Temp Pulse Resp B/P (MAP) Pulse Ox O2 Delivery O2 Flow Rate FiO2 03/22/17 00:21 74 18 127/70 98 03/21/17 23:30 70 16 122/65 97 Room Air 03/21/17 20:44 36.9 67 20 175/88 96 Room Air 03/21/17 18:29 37.1 75 18 148/93 95 Room Air Physical Exam Vital signs reviewed. General: Well-appearing, in no significant distress. HEENT: No scleral icterus, PERRLA, neck supple. Atraumatic. Cardiovascular: Regular rate and rhythm, no extra sounds. Pulmonary: Clear to auscultation bilaterally, normal work of breathing. Abdomen: Soft, nontender, nondistended, positive bowel sounds. Musculoskeletal: Atraumatic, no peripheral edema. Neurologic: Patient awake alert and oriented x 3, full strength in all 4 extremities. Cranial nerves 2 through 12 grossly intact. Skin: Warm, dry. Left gluteus has a large 20 cm area of erythema with an irregular edge, no specific lymphangitic streaking, no fluctuance. Well-healing incision to the left hip that does not appear to be involved in the cellulitis. Medical Decision & Procedures ER Provider Diagnostic Interpretation: X-ray results as stated below per interpretation by me and the radiologist: LEFT HIP UNILATERAL 2 VIEWS CLINICAL HISTORY: Left hip cellulitis. COMPARISON: Pelvis and left hip radiographs December 26, 2016. FINDINGS: Alignment of the total left hip arthroplasty is anatomic. There is no periprosthetic fracture or lucency. A linear calcific density within the medial proximal left thigh is chronic and unchanged. An acetabular screw is in place. IMPRESSION: Status post total left hip arthroplasty. Hardware intact. No periprosthetic fracture or lucency. Electronically signed by: Kale Cabrales M.D. 03/21/2017 8:30 PM Dictated Date/Time: 03/21/2017 8:29 PM Laboratory Results 03/21/17 20:00 Red Blood Count 4.78, Mean Corpuscular Volume 86.4, Mean Corpuscular Hemoglobin 26.8, Mean Corpuscular Hemoglobin Concent 31.0, Mean Platelet Volume 10.1, Neutrophils (%) (Auto) 63.4, Lymphocytes (%) (Auto) 25.3, Monocytes (%) (Auto) 10.4, Eosinophils (%) (Auto) 0.7, Basophils (%) (Auto) 0.1, Neutrophils # (Auto ) 5.84, Lymphocytes # (Auto) 2.33, Monocytes # (Auto) 0.96, Eosinophils # (Auto ) 0.06, Basophils # (Auto) 0.01 03/21/17 20:00 Test 03/21/17 20:00 03/21/17 20:06 White Blood Count 9.21 K/uL (4.8-10.8) Red Blood Count 4.78 M/uL (4.7-6.1) Hemoglobin 12.8 g/dL (14.0-18.0) Hematocrit 41.3 % (42-52) Mean Corpuscular Volume 86.4 fL (80-100) Mean Corpuscular Hemoglobin 26.8 pg (25-34) Mean Corpuscular Hemoglobin Concent 31.0 g/dl (32-36) Platelet Count 362 K/uL (130-400) Mean Platelet Volume 10.1 fL (7.4-10.4) Neutrophils (%) (Auto) 63.4 % Lymphocytes (%) (Auto) 25.3 % Monocytes (%) (Auto) 10.4 % Eosinophils (%) (Auto) 0.7 % Basophils (%) (Auto) 0.1 % Neutrophils # (Auto) 5.84 K/uL (1.4-6.5) Lymphocytes # (Auto) 2.33 K/uL (1.2-3.4) Monocytes # (Auto) 0.96 K/uL (0.11-0.59) Eosinophils # (Auto) 0.06 K/uL (0-0.5) Basophils # (Auto) 0.01 K/uL (0-0.2) RDW Standard Deviation 46.3 fL (36.4-46.3) RDW Coefficient of Variation 14.5 % (11.5-14.5) Immature Granulocyte % (Auto) 0.1 % Immature Granulocyte # (Auto) 0.01 K/uL (0.00-0.02) Anion Gap 6.0 mmol/L (3-11) Est Creatinine Clear Calc Drug Dose 91.7 ml/min Estimated GFR () 83.5 Estimated GFR (Non- 72.1 BUN/Creatinine Ratio 13.2 (10-20) Calcium Level 9.0 mg/dl (8.5-10.1) Total Bilirubin 1.1 mg/dl (0.2-1) Direct Bilirubin 0.2 mg/dl (0-0.2) Aspartate Amino Transf (AST/SGOT) 12 U/L (15-37) Alanine Aminotransferase (ALT/SGPT) 23 U/L (12-78) Alkaline Phosphatase 71 U/L (45-117) Total Protein 8.0 gm/dl (6.4-8.2) Albumin 3.1 gm/dl (3.4-5.0) Bedside Lactic Acid Venous 0.87 mmol/L (0.90-1.70) Laboratory results per my review. Medications Administered Medications (Trade) Dose Ordered Sig/Lu Route Start Time Stop Time Status Last Admin Dose Admin Vancomycin HCl 2800 mg/Sodium Chloride 556 ml @ 200 mls/hr ONE STAT IV 03/21/17 19:07 03/21/17 21:53 DC 03/21/17 20:52 200 MLS/HR Ceftriaxone Sodium (Rocephin Inj) 1 gm NOW STAT IV 03/21/17 19:07 03/21/17 19:12 DC 03/21/17 20:52 1 GM Sodium Chloride 500 ml @ 999 mls/hr Q31M STAT IV 03/21/17 19:07 03/21/17 19:37 DC 03/21/17 20:00 999 MLS/HR Sodium Chloride 1,000 ml @ 125 mls/hr Q8H STAT IV 03/21/17 19:07 03/22/17 00:37 DC 03/21/17 20:52 125 MLS/HR ED Course 3315: Past medical records reviewed. The patient was evaluated in room C11B. A complete history and physical examination was performed. 190: Sodium Chloride 1000 ml @ 125 mls/hr IV, Sodium Chloride 500 ml @ 999 mls/ hr IV, Rocephin Inj 1 gm IV, Vancomycin HCl 2800 mg/Sodium Chloride 556 ml @ 200 mls/hr IV 8: I reevaluated the patient who is resting comfortably. I discussed findings with him. He verbalized agreement of the treatment plan. He will be discharged home after he is finished receiving his medications. Medical Decision Differential diagnosis: Etiologies such as cellulitis, abscess, MRSA infection, DVT, necrotizing fasciitis, dermatitis, drug eruption, as well as others were entertained.. This patient was evaluated and appeared to be in no significant distress. IV access was obtained and laboratory work was drawn. The patient was placed on the bus monitor. The large area of cellulitis has no central clearing or fluctuance. Laboratory work reveals a normal white blood cell count, patient is afebrile. He was initially started on IV vancomycin. It was determined that he is stable for discharge and the patient was switched to Keflex and doxycycline. He was discharged to the care of his who will monitor his erythema closely. The patient should have reevaluation of the wound in 24-48 hours. He will return to the ER immediately for worsening of symptoms or any medical concerns. Medication Reconcilliation Current Medication List: was personally reviewed by me Blood Pressure Screening Patient's blood pressure: Elevated blood pressure Blood pressure disposition: Elevated BP felt to be situational Impression Primary Impression: Cellulitis, gluteal, left Scribe Attestation The scribe's documentation has been prepared under my direction and personally reviewed by me in its entirety. I confirm that the note above accurately reflects all work, treatment, procedures, and medical decision making performed by me. Departure Information Dispostion Home / Self-Care Prescriptions Doxycycline Monohydrate (Monodox) 100 Mg Cap 100 MG PO BID for 7 Days, #14 CAP Prov: Yamel Phillip M.D. 03/21/17 Cephalexin Monohydrate (Keflex) 500 Mg Cap 500 MG PO QID, #28 CAP Prov: Yamel Phillip M.D. 03/21/17 Referrals Chantale Morales DO (PCP) Forms HOME CARE DOCUMENTATION FORM, IMPORTANT VISIT INFORMATION, WORK / SCHOOL INSTRUCTIONS Patient Instructions My [facility] Additional Instructions Diagnosis: Left gluteal cellulitis Keflex 500 mg 4 times daily for 7 days. Doxycycline 100 mg twice daily for 7 days. Follow-up with your physician as scheduled tomorrow for reevaluation. Return to the ER for worsening of symptoms, fevers, increased redness or any medical concerns.
[2017-03-21] MEDS ORDERED: TAMS0.4C38 PO (20:11)
[2017-03-21 20:13] LABS: BASO % 0.1 %; BASO ABS # 0.01 K/uL (0-0.2); COMPLETE YES; EOS % 0.7 %; HEMATOCRIT 41.3 % (42-52); IG% 0.1 %; LYMPH % 25.3 %; LYMPH ABS # 2.33 K/uL (1.2-3.4); MEAN CELL VOLUME 86.4 fL (80-100); MEAN CORPUSCULAR HEMOGLOBIN 26.8 pg (25-34); MEAN PLATELET VOLUME 10.1 fL (7.4-10.4); MONO % 10.4 %; NEUT % 63.4 %; PLATELET COUNT 362 K/uL (130-400); RED BLOOD COUNT 4.78 M/uL (4.7-6.1); WHITE BLOOD COUNT 9.21 K/uL (4.8-10.8)
[2017-03-21 20:31] LABS: BUN/CREATININE RATIO 13.2 (10-20); CREATININE 1.1 mg/dl (0.60-1.40); POTASSIUM 3.6 mmol/L (3.5-5.1)
--- NOTE | 2017-03-21 20:32 | DIAGNOSTIC IMAGING REPORT ---
LEFT HIP UNILATERAL 2 VIEWS CLINICAL HISTORY: Left hip cellulitis. COMPARISON: Pelvis and left hip radiographs December 26, 2016. FINDINGS: Alignment of the total left hip arthroplasty is anatomic. There is no periprosthetic fracture or lucency. A linear calcific density within the medial proximal left thigh is chronic and unchanged. An acetabular screw is in place. IMPRESSION: Status post total left hip arthroplasty. Hardware intact. No periprosthetic fracture or lucency. Electronically signed by: Kale Cabrales M.D. 03/21/2017 8:30 PM Dictated Date/Time: 03/21/2017 8:29 PM
[2017-03-21 20:44] VITALS: TEMP 36.9
[2017-03-21] MEDS ORDERED: CEPH500C PO (22:48)
[2017-03-21] MEDS ORDERED: DOXY100C76 PO (22:48)
[2017-03-22 00:21] VITALS: BP 127/70; PULSE 74; O2SAT 98
== END 2017-03-22 00:22 | disposition home or self-care (01) ==
LOC: C.EDB 18:26 → C.EDC 03-22 00:22
DX: L03.116 Cellulitis of left lower limb (principal); I10 Essential (primary) hypertension; K57.30 Diverticulosis of large intestine without perforation or abscess without bleeding; K50.90 Crohn's disease, unspecified, without complications; K56.60 Unspecified intestinal obstruction; M15.0 Primary generalized (osteo)arthritis; Z96.659 Presence of unspecified artificial knee joint; Z96.649 Presence of unspecified artificial hip joint; Z96.619 Presence of unspecified artificial shoulder joint; Z79.899 Other long term (current) drug therapy; Z88.2 Allergy status to sulfonamides; Z82.49 Family history of ischemic heart disease and other diseases of the circulatory system; Z82.3 Family history of stroke

== ENCOUNTER → 2017-07-06 | Outpatient (CLI) | payer OTHER ==
[~2017-07-06] MED LIST changes: -ASPEC81 PO; +CEPH500C PO; -ONDA8TAB6 PO; -OXYC1TAB3 PO; -SNK PO; +TAMS0.4C38 PO
[2017-07-06 12:56] LABS: ALT/SGPT 28 U/L (12-78); BLOOD UREA NITROGEN 17 mg/dl (7-18); BUN/CREATININE RATIO 16.6 (10-20); CALCIUM 8.8 mg/dl (8.5-10.1); CARBON DIOXIDE 27 mmol/L (21-32); CHLORIDE 107 mmol/L (98-107); CHOLESTEROL 166 mg/dl (0-200); CREATININE 1.01 mg/dl (0.60-1.40); GLUCOSE 99 mg/dl (70-99); POTASSIUM 4.2 mmol/L (3.5-5.1); SODIUM 139 mmol/L (136-145); TRIGLYCERIDES 160 mg/dl (0-150); VERY LOW DENSITY LIPOPROT CALC 32 mg/dl
[2017-07-06 13:04] LABS: ALB/GLOB RATIO 0.9 (0.9-2); ALKALINE PHOSPHATASE 60 U/L (45-117); AST/SGOT 19 U/L (15-37); CHOLESTEROL/HDL RATIO 3.1; HDL CHOLESTEROL 54 mg/dl; LDL CHOLESTEROL CALCULATED 80 mg/dl; THYROID STIMULATING HORMONE 0.979 uIu/ml (0.300-4.500)
== END | disposition home or self-care (01) ==
LOC: C.LABPBG 08:31
PROVIDERS: ATTEND Urology
DX: I10 Essential (primary) hypertension (principal); K50.00 Crohn's disease of small intestine without complications; E78.5 Hyperlipidemia, unspecified; N40.0 Benign prostatic hyperplasia without lower urinary tract symptoms

== ENCOUNTER → 2017-09-17 | Day surgery (SDC) | payer OTHER ==
[2017-08-31 13:56] VITALS: BMI 37.0
[~2017-09-17] VITALS: Ht 177.8 cm; Wt 118.2 kg
[~2017-09-17] MED LIST changes: -ACET-1138 PO; -CEPH500C PO; +LIDOCAINE HCL 2% 2 ML VIAL (20MG/ML) ONE; -LOPE2TAB74 PO; +PROPOFOL IV EMULSION 10 MG/ML 20 ML VIAL IV ONE; +SODIUM CHLORIDE 0.9% 500ML 500 ML IV ONE
[2017-09-17 09:45] VITALS: Ht 177.8 cm; Wt 118.2 kg
--- NOTE | 2017-09-17 10:18 | Endo History and Physical ---
History & Physical Date of Service: Sep 17, 2017. Chief Complaint: SCREENING Referring Physician: DR. ANDERS History of Present Illness 61 yo CM who presents for screening colonoscopy. Past Medical History Arthritis, Gastrointestinal Disorder, Sleep Apnea, Hypertension Past Surgical History Hx Cardiac Surgery: No Hx Internal Defibrillator: No Hx Pacemaker: No Hx Abdominal Surgery: Yes (UMBILICAL HERNIA) Hx Post-Op Nausea and Vomiting: No Hx Cancer Surgery: No Hx Thoracic Surgery: No Hx Orthopedic: Yes (L TSA, R TKA, LUMBAR FUSION, L ACHILLES REPAIR, LEFT JACKSON) Hx Urinary Tract Surgery: Yes Family History None Social History Smoking Status: Never Smoker Hx Substance Use: No Hx Alcohol Use: Yes (RARELY) Allergies Coded Allergies: Sulfa Antibiotics (Verified Allergy, Intermediate, RASH, 09/17/17) Current Medications Reported Home Medications Medications Dose Route/Sig Max Daily Dose Days Date Category Flomax (Tamsulosin Hcl) 0.4 Mg Cap 0.4 Mg PO QAM 03/21/17 Reported Humira Pen (Adalimumab) 40 Mg/0.8 Ml Kit 40 Mcg INJ [id number] 11/09/16 Reported Dicyclomine HCl 10 Mg Cap 10 Mg PO TID PRN 06/04/16 Reported Multivitamin (Multiple Vitamin) 1 Tab Tab 1 Tab PO QAM 06/18/15 Reported Folic Acid 800 Mcg Tab 800 Mcg PO QAM 05/18/14 Reported Coreg (Carvedilol) 6.25 Mg Tab 6.25 Mg PO BID 03/04/14 Reported Fish Oil ([place]-3 Fatty Acids) 1 Cap Cap 1,000 Mg PO QAM 12/11/13 Reported Vital Signs Weight (Kilograms): 118.18 Height (Feet): 5 Height (Inches): 10 Date Time Temp Pulse Resp B/P (MAP) Pulse Ox O2 Delivery O2 Flow Rate FiO2 09/17/17 09:51 37.3 78 20 147/77 (100) 96 Room Air Physical Exam General Appearance: WD/WN, no apparent distress Respiratory/Chest: Auscultation: breath sounds normal Cardiovascular: Heart Auscultation: RRR Abdomen: Bowel Sounds: normal Inspection & Palpation: soft, non-distended, no tenderness, guarding & rebound Assessment and Plan Assessment: 61 yo CM who presents for screening colonoscopy. Plan: Proceed with colonoscopy.
--- NOTE | 2017-09-17 10:48 | GI REPORT ---
Procedure Date: 09/17/2017 10:24 AM Procedure: Colonoscopy Indications: Disease activity assessment of Crohn's disease of the small bowel Medicines: Monitored Anesthesia Care Complications: No immediate complications. Estimated Blood Loss: Estimated blood loss: none. Procedure: Pre-Anesthesia Assessment: - Prior to the procedure, a History and Physical was performed, and patient medications and allergies were reviewed. The patient's tolerance of previous anesthesia was also reviewed. The risks and benefits of the procedure and the sedation options and risks were discussed with the patient. All questions were answered, and informed consent was obtained. Prior Anticoagulants: The patient has taken no previous anticoagulant or antiplatelet agents. ASA Grade Assessment: II - A patient with mild systemic disease. After reviewing the risks and benefits, the patient was deemed in satisfactory condition to undergo the procedure. After I obtained informed consent, the scope was passed under direct vision. Throughout the procedure, the patient's blood pressure, pulse, and oxygen saturations were monitored continuously. The scope was introduced through the anus and advanced to the terminal ileum. The colonoscopy was performed without difficulty. The patient tolerated the procedure well. The quality of the bowel preparation was good. The terminal ileum, ileocecal valve, appendiceal orifice, and rectum were photographed. Findings: Localized inflammation, mild in severity and characterized by aphthous ulcerations was found in the terminal ileum. Biopsies were taken with a cold forceps for histology. Several random biopsies were obtained with cold forceps for histology in the entire colon. A 5 mm polyp was found in the sigmoid colon. The polyp was sessile. The polyp was removed with a hot snare. Resection and retrieval were complete. Impression: - Crohn's disease with ileitis. Biopsied. - One 5 mm polyp in the sigmoid colon, removed with a hot snare. Resected and retrieved. - Several random biopsies were obtained in the entire colon. Recommendation: - Resume previous diet. - Continue present medications. - Repeat colonoscopy for surveillance based on pathology results. - Return to primary care physician as previously scheduled. Levi De La Paz DO 09/17/2017 10:47:44 AM This report has been signed electronically. Note Initiated On: 09/17/2017 10:24 AM I attest to the content of the Intraoperative Record and orders documented therein, exceptions below
[2017-09-17 11:16] VITALS: BP 123/72; PULSE 73; O2SAT 96
--- NOTE | 2017-09-17 11:38 | Anesthesiology Progress Note ---
Anesthesia Post Op Note Date & Time Sep 17, 2017 at 11:38 Vital Signs Pain Intensity: 0 Vital Signs Past 12 Hours Date Time Temp Pulse Resp B/P (MAP) Pulse Ox O2 Delivery O2 Flow Rate FiO2 09/17/17 11:16 73 18 123/72 (89) 96 Room Air 09/17/17 11:01 78 18 113/71 (85) 98 Room Air 09/17/17 10:46 81 16 116/63 (80) 98 Room Air 09/17/17 09:51 37.3 78 20 147/77 (100) 96 Room Air Notes Mental Status: alert / awake / arousable, participated in evaluation Pt Amnestic to Procedure: Yes Nausea / Vomiting: adequately controlled Pain: adequately controlled Airway Patency, RR, SpO2: stable & adequate BP & HR: stable & adequate Hydration State: stable & adequate Anesthetic Complications: no major complications apparent
--- NOTE | 2017-09-17 11:41 | Discharge Instructions ---
Endoscopy Patient Instructions Date / Procedure(s) Performed Sep 17, 2017. Colonoscopy Allergy Information Coded Allergies: Sulfa Antibiotics (Verified Allergy, Intermediate, RASH, 09/17/17) Discharge Date / Findings Sep 17, 2017. Crohn's Ileitis s/p biopsies Random colon biopsies Sigmoid colon polyp Medication Instructions Stopped Medication(s): TOOK BP MED CORREG OK to resume all medications today as prescribed Reported Home Medications Medications Dose Route/Sig Max Daily Dose Days Date Category Flomax (Tamsulosin Hcl) 0.4 Mg Cap 0.4 Mg PO QAM 03/21/17 Reported Humira Pen (Adalimumab) 40 Mg/0.8 Ml Kit 40 Mcg INJ [id number] 11/09/16 Reported Dicyclomine HCl 10 Mg Cap 10 Mg PO TID PRN 06/04/16 Reported Multivitamin (Multiple Vitamin) 1 Tab Tab 1 Tab PO QAM 06/18/15 Reported Folic Acid 800 Mcg Tab 800 Mcg PO QAM 05/18/14 Reported Coreg (Carvedilol) 6.25 Mg Tab 6.25 Mg PO BID 03/04/14 Reported Fish Oil ([place]-3 Fatty Acids) 1 Cap Cap 1,000 Mg PO QAM 12/11/13 Reported Provider Instructions Activity Restrictions - No exercising or heavy lifting for 24 hours. - Do not drink alcohol the day of the procedure. - Do not drive a car or operate machinery until the day after the procedure. - Do not make any important decisions or sign important papers in 24 hours after the procedure. Following Day: - Return to full activity which may include returning to work/school. Diet Start your diet with liquids and light foods (jello, soup, juice, toast). Then eat your usual diet if not nauseated. Treatment For Common After Affects For mild abdominal pain, bloating, or excessive gas: - Rest - Eat lightly - Lie on right side Follow-Up Information Follow-up with DR. ANDERS as scheduled Anesthesia Information What You Should Know You have had a procedure that required some medicine to reduce anxiety and discomfort. This treatment is called moderate sedation. After receiving the treatment, you may be sleepy, but you will be able to breathe on your own. The effects of the treatment may last for several hours. Follow these instructions along with Activity/Diet recommendations noted above: * Do NOT do anything where dizziness or clumsiness would be dangerous. * Rest quietly at home today, then you can be up and about tomorrow. * Have a responsible person stay with you the rest of today. * You may have had an I.V. today. If so, you may take the dressing off later today. Recommendations Call your doctor if: * Trouble breathing * Continuous vomiting for more than 24 hours * Temperature above 101 degrees * Severe abdominal pain or bloating * Pain not relieved by pain medicine ordered * There is increased drainage or redness from any incision * A large amount of rectal bleeding greater than 2-3 tablespoons. (If you had a polyp/s removed or have hemorrhoids, a small amount of blood - from the rectum is to be expected.) * You have any unanswered questions or concerns. IN THE EVENT OF A SERIOUS EMERGENCY, GO TO THE NEAREST EMERGENCY ROOM Your discharge instructions were prepared by provider Levi De La Paz. Patient Instructions Signature Page Prakash Brewster Patient (or Guardian) Signature/Date: I have read and understand the instructions given to me by my caregivers. Caregiver/RN/Doctor Signature/Date: The above-named patient and/or guardian has received patient instructions on this date. + Original Patient Signature Page (only) stays with chart. Please make copy for patient.
== END | disposition home or self-care (01) ==
LOC: C.GI 09:34
PROVIDERS: ATTEND Internal Medicine
DX: Z12.11 Encounter for screening for malignant neoplasm of colon (principal); D12.5 Benign neoplasm of sigmoid colon; K52.9 Noninfective gastroenteritis and colitis, unspecified; K50.90 Crohn's disease, unspecified, without complications; E66.9 Obesity, unspecified; G47.33 Obstructive sleep apnea (adult) (pediatric); M19.90 Unspecified osteoarthritis, unspecified site; I10 Essential (primary) hypertension; Z96.651 Presence of right artificial knee joint; Z98.1 Arthrodesis status; Z96.642 Presence of left artificial hip joint

== ENCOUNTER → 2017-09-21 | Outpatient (CLI) | payer OTHER ==
[~2017-09-21] MED LIST changes: -LIDOCAINE HCL 2% 2 ML VIAL (20MG/ML) ONE; -PROPOFOL IV EMULSION 10 MG/ML 20 ML VIAL IV ONE; -SODIUM CHLORIDE 0.9% 500ML 500 ML IV ONE
[2017-09-21 17:12] LABS: BASO % 0.1 %; BASO ABS # 0.01 K/uL (0-0.2); EOS % 0.4 %; EOS ABS # 0.04 K/uL (0-0.5); HEMATOCRIT 37.6 % (42-52); HEMOGLOBIN 12.4 g/dL (14.0-18.0); IG# 0.03 K/uL (0.00-0.02); LYMPH % 20.6 %; LYMPH ABS # 2.27 K/uL (1.2-3.4); MEAN CELL VOLUME 86.2 fL (80-100); MEAN CORPUSCULAR HEMOGLOBIN 28.4 pg (25-34); MEAN PLATELET VOLUME 10.2 fL (7.4-10.4); MONO % 9.9 %; MONO ABS # 1.09 K/uL (0.11-0.59); NEUT % 68.7 %; PLATELET COUNT 345 K/uL (130-400); RED CELL DISTRIBUTION WIDTH CV 13.6 % (11.5-14.5); RED CELL DISTRIBUTION WIDTH SD 42.8 fL (36.4-46.3); WHITE BLOOD COUNT 11.04 K/uL (4.8-10.8)
== END | disposition home or self-care (01) ==
LOC: C.LABPBG 15:47
PROVIDERS: ATTEND Family Medicine
DX: R53.81 Other malaise (principal)

== ENCOUNTER → 2017-10-19 | Outpatient (CLI) | payer OTHER ==
[2017-10-22 15:01] LABS: QUANTIF MITOGEN-NIL 8.61 IU/ML; QUANTIFERON NEGATIVE (NEGATIVE); QUANTIFERON NIL 0.05 IU/ML
== END | disposition home or self-care (01) ==
LOC: C.LABPBG 08:54
PROVIDERS: ATTEND Physician Assistant
DX: K50.00 Crohn's disease of small intestine without complications (principal)

== ENCOUNTER → 2017-11-05 | Outpatient (CLI) | payer OTHER ==
[~2017-11-05] MED LIST changes: +AMOX500C3 PO; +CRG625 PO; +ERGO500011 PO; +FLM4 PO
[2017-11-05 17:57] LABS: BASO % 0.1 %; BASO ABS # 0.01 K/uL (0-0.2); EOS % 0.6 %; EOS ABS # 0.06 K/uL (0-0.5); HEMATOCRIT 35.4 % (42-52); HEMOGLOBIN 11.5 g/dL (14.0-18.0); IG# 0.02 K/uL (0.00-0.02); LYMPH % 18.5 %; LYMPH ABS # 1.96 K/uL (1.2-3.4); MEAN CELL VOLUME 85.9 fL (80-100); MEAN CORPUSCULAR HEMOGLOBIN 27.9 pg (25-34); MEAN CORPUSCULAR HGB CONC 32.5 g/dl (32-36); MEAN PLATELET VOLUME 10.7 fL (7.4-10.4); MONO % 10.8 %; MONO ABS # 1.14 K/uL (0.11-0.59); NEUT % 69.8 %; PLATELET COUNT 340 K/uL (130-400); RED CELL DISTRIBUTION WIDTH CV 16.6 % (11.5-14.5); RED CELL DISTRIBUTION WIDTH SD 52.2 fL (36.4-46.3); WHITE BLOOD COUNT 10.59 K/uL (4.8-10.8)
[2017-11-05 18:41] LABS: BLOOD UREA NITROGEN 12 mg/dl (7-18); CALCIUM 8.9 mg/dl (8.5-10.1); CARBON DIOXIDE 23 mmol/L (21-32); CREATININE 0.84 mg/dl (0.60-1.40); GLUCOSE 102 mg/dl (70-99); POTASSIUM 3.9 mmol/L (3.5-5.1); SODIUM 135 mmol/L (136-145)
== END | disposition home or self-care (01) ==
LOC: C.LABPBG 12:10
PROVIDERS: ATTEND Family Medicine
DX: R50.9 Fever, unspecified (principal); T81.89XA Other complications of procedures, not elsewhere classified, initial encounter; Y84.9 Medical procedure, unspecified as the cause of abnormal reaction of the patient, or of later complication, without mention of misadventure at the time of the procedure

== ENCOUNTER 2017-11-06 15:10 | Inpatient (IN) | payer OTHER ==
[~2017-11-06] VITALS: Ht 177.8 cm; Wt 124.2 kg
[~2017-11-06 15:10] MED LIST changes: -AMOX500C3 PO; -CRG625 PO; -ERGO500011 PO; -FLM4 PO; -FOLI800T PO
[2017-11-06] MEDS ORDERED: FOLI800T PO (15:38)
[2017-11-06] MEDS ORDERED: CRG625 PO (17:38)
[2017-11-06] MEDS ORDERED: AMOX500C3 PO (17:38)
[2017-11-06] MEDS ORDERED: ERGO500011 PO (17:38)
[2017-11-06] MEDS ORDERED: FLM4 PO (17:38)
[2017-11-06] MEDS ORDERED: SODIUM CHLORIDE 0.9% 1000ML 1,000 ML IV STA (17:39)
[2017-11-06] MEDS ORDERED: MoRPHine SULFATE 4 MG/ML 1 ML CARP\\VIAL IV STA (17:39)
[2017-11-06] MEDS ORDERED: MoRPHine SULFATE 2 MG/ML CARP ONE (17:47)
[2017-11-06 18:27] LABS: BASO % 0.1 %; BASO ABS # 0.01 K/uL (0-0.2); EOS % 1.7 %; EOS ABS # 0.16 K/uL (0-0.5); HEMATOCRIT 37.3 % (42-52); IG# 0.02 K/uL (0.00-0.02); LYMPH ABS # 2.04 K/uL (1.2-3.4); MEAN CELL VOLUME 86.9 fL (80-100); MEAN CORPUSCULAR HGB CONC 32.2 g/dl (32-36); MEAN PLATELET VOLUME 10.4 fL (7.4-10.4); MONO % 8.3 %; MONO ABS # 0.77 K/uL (0.11-0.59); NEUT % 67.7 %; NEUT ABS # 6.29 K/uL (1.4-6.5); PLATELET COUNT 356 K/uL (130-400); RED CELL DISTRIBUTION WIDTH CV 16.3 % (11.5-14.5); RED CELL DISTRIBUTION WIDTH SD 52.1 fL (36.4-46.3); WHITE BLOOD COUNT 9.29 K/uL (4.8-10.8)
[2017-11-06 18:37] LABS: ALBUMIN 2.7 gm/dl (3.4-5.0); CALCIUM 9.1 mg/dl (8.5-10.1); CREATININE 0.91 mg/dl (0.60-1.40); POTASSIUM 3.9 mmol/L (3.5-5.1)
[2017-11-06 18:39] LABS: TOTAL PROTEIN 8.4 gm/dl (6.4-8.2)
[2017-11-06] MEDS ORDERED: LORAZEPAM 1 MG TAB PO STA (18:57)
[2017-11-06] MEDS ORDERED: LORAZEPAM 1 MG TAB PO PRN (19:00)
[2017-11-06] MEDS ORDERED: LORAZEPAM INJ 1 MG in SYRINGE 0.5 ML IV PRN (19:00)
[2017-11-06] MEDS ORDERED: IV FLUIDS COMPLETED PRN (19:00)
[2017-11-06] MEDS ORDERED: ACETAMINOPHEN 325 MG TAB PO PRN (19:00)
[2017-11-06] MEDS ORDERED: PROMETHAZINE HCL INJ 12.5 MG in SODIUM CHLORIDE 0.9% 50ML 50 ML IV PRN (19:00)
[2017-11-06] MEDS ORDERED: ONDANSETRON INJ 2 MG/ML 2 ML VIAL IV PRN (19:00)
[2017-11-06] MEDS ORDERED: DICYCLOMINE HCL 10 MG CAP PO PRN (19:00)
--- NOTE | 2017-11-06 19:22 | DIAGNOSTIC IMAGING REPORT ---
CHEST ONE VIEW PORTABLE CLINICAL HISTORY: Evaluate Fever/Sepsis COMPARISON STUDY: Chest radiograph November 09, 2016. FINDINGS: Left shoulder arthroplasty is incidentally noted. Patient is rotated. No pneumothorax or pleural effusion is noted. There is no consolidation. There is no evidence for pulmonary edema. There is borderline cardiomegaly. IMPRESSION: No acute cardiopulmonary findings. Electronically signed by: Kale Cabrales M.D. 11/06/2017 7:21 PM Dictated Date/Time: 11/06/2017 7:20 PM
[2017-11-06 20:50] VITALS: BP 154/78; PULSE 73; TEMP 37.6; O2SAT 95
[2017-11-06 21:03] VITALS: BP 154/78; PULSE 73; TEMP 37.6; O2SAT 95; Ht 177.8 cm; Wt 124.2 kg
--- NOTE | 2017-11-06 21:09 | DIAGNOSTIC IMAGING REPORT ---
MRI OF THE LUMBAR SPINE WITH AND WITHOUT CONTRAST CLINICAL HISTORY: s/p remote fusion, pain, swelling, redness warmth. COMPARISON STUDY: Lumbar spine MRI June 04, 2016 TECHNIQUE: Utilizing a 1.5 Rosalind magnet and dedicated coil, multiplanar, multiecho imaging of the lumbar spine was performed before and after uneventful IV administration of 12 mL of Gadavist. FINDINGS: For purposes of numbering on this exam, the L5-S1 disc space is assigned to axial image 31 of 35. There is 6 mm anterolisthesis of L4 and L5. The patient is status post L4-L5 discectomy with interbody spacer placement. There is a posterior decompression with bilateral pedicle screws at the L3, L4 and L5 levels. Note is made of a complex multiloculated operative bed fluid collection with 2 components which communicate with one another. Subcutaneous component measures 6.7 x 4 x 5.9 cm. This demonstrates peripheral enhancement. This communicates with a laminectomy bed component that measures 4 x 3.6 x 2.3 cm. Smaller components are noted inferiorly, including a 1.9 x 0.9 cm peripherally enhancing fluid collection adjacent to the right transverse process of L4. Increased T2 signal and enhancement is noted within the adjacent paraspinal musculature. No evidence of discitis or osteomyelitis. Conus terminates at the T12-L1 level. L1-2: The central canal and neural foramen are patent. L2-3: There is disc bulge, ligamentous hypertrophy and facet arthrosis that result in moderate narrowing of the central canal and lateral recesses. There is mild narrowing of both neural foramen. L3-4: The central canal and neural foramen are patent. L4-5: The central canal is patent. There is mild narrowing of both neural foramen. L5-S1: The central canal and neural foramen are patent. IMPRESSION: 1. Status post L4-L5 discectomy and L3-L5 laminectomy and bilateral pedicle screw fusion. 2. Several multiloculated rim-enhancing operative bed fluid collections, including a 6.7 x 4 x 5.9 cm subcutaneous fluid collection which communicates with a 4 x 3.6 x 2.3 cm laminectomy bed fluid collection, located adjacent to the hardware. Several additional smaller fluid collections, as described above, with associated signal abnormality and enhancement within the paraspinal musculature. These are nonspecific in the postoperative setting and sterility cannot be assessed by MRI but these findings raise the possibility of an infectious process with abscesses. Complex seromas or pseudomeningocele could appear similar. Correlation with clinical evidence for an infectious process is recommended. 3. Moderate central canal stenosis at L2-L3, as described above. Otherwise, patent central canal. 4. No evidence for discitis or osteomyelitis. 5. Indeterminate 6 cm lower abdominal T2 hyperintense focus. This may simply represent a bowel loop however a follow-up CT of the abdomen and pelvis could be obtained to exclude a fluid collection or cystic lesion. Electronically signed by: Kale Cabrales M.D. 11/06/2017 9:08 PM Dictated Date/Time: 11/06/2017 8:53 PM
[2017-11-06 22:43] VITALS: BP 131/72; PULSE 87
[2017-11-06] MEDS: CARVEDILOL 6.25 MG TAB PO SCH (22:45)
[2017-11-06] MEDS: DOCUSATE SODIUM 100 MG CAP PO SCH (22:45)
[2017-11-06 22:48] VITALS: BP 131/72; PULSE 84; TEMP 38.3; O2SAT 94
--- NOTE | 2017-11-06 23:48 | EMERGENCY ROOM VISIT NOTE ---
History Report prepared by Amrita: Tamiko Burk Under the Supervision of: Dr. Gustavo Alamo M.D. First contact with patient: 17:22 Chief Complaint: OTHER COMPLAINT Stated Complaint: FEVER, SWOLLEN, RED AREA ABOVE LUMBAR, REFEREDBYMD History of Present Illness The patient is a 62 year old male who presents to the Emergency Room with complaints of worsening back pain starting 4 days ago. The patient was sent to the ED by his provider. He had back surgery in 2016. He has had intermittent swelling with over exertion which his orthopedic doctor has told him is normal. 4 days ago, he started having some swelling. 2 days ago, the area started becoming red and painful. The pain worsens with movement and lying on his back. He was started on antibiotics yesterday and had an ultrasound. He was sent to the ED today over concerns of fluid collection in his back. The patient has recently had some flu symptoms. He has had a fever, nausea, lightheadedness, and headache. He denies any abdominal pain, incontinence, urinary symptoms, or change in bowel movement. Source of History: patient Onset: 4 days ago Position: back Quality: other (pain, swelling, redness) Timing: worsening Modifying Factors (Worsening): movement, other (lying on his back) Associated Symptoms: + fevers, + headache, + nausea, No abdominal pain, No urinary symptoms Note: Pt reports lightheadedness. Review of Systems See HPI for pertinent positives and negatives. A total of ten systems were reviewed and were otherwise negative. Past Medical & Surgical Medical Problems: (1) Acute renal failure (2) Back pain (3) Crohn's disease (4) Diverticulosis Colon (W/O Ment Of Hemorrhage) (5) Hypertension (6) Hypertension Nos (7) Hypokalemia (8) Hypomagnesemia (9) Hypophosphatemia (10) Knee effusion, right (11) Localized, primary osteoarthritis of the lower leg (12) Lumbar stenosis with neurogenic claudication (13) Obesity, Nos (14) Sepsis (15) Sepsis (16) Small bowel obstruction (17) Small bowel obstruction Surgical Problems: (1) Hip Joint Replacement Status (2) History of knee replacement, total (3) Post-operative state (4) Shoulder Joint Replacement Status Family History FH: heart attack FH: stroke Heart disease Hypertension Social History Smoking Status: Never Smoker Alcohol Use: none Drug Use: none Marital Status: Housing Status: lives with family Occupation Status: employed Current/Historical Medications Scheduled Adalimumab (Humira Pen), 40 MCG INJ WK Amoxicillin (Amoxil), 500 MG PO TID Carvedilol (Carvedilol), 6.25 MG PO BID Ergocalciferol (Vitamin D 30988 Unit), 50,000 INTER.UNIT PO WK Folic Acid (Folic Acid), 800 MCG PO QAM Multiple Vitamin (Multivitamin), 1 TAB PO QAM [place]-3 Fatty Acids (Fish Oil), 1,000 MG PO QAM Tamsulosin HCl (Tamsulosin HCl), 0.4 MG PO QAM Scheduled PRN Dicyclomine HCl (Dicyclomine HCl), 10 MG PO TID PRN for Abdominal Pain/Cramping Allergies Coded Allergies: Cefdinir (Verified Allergy, Intermediate, Rash, 11/06/17) Sodium Benzoate (Verified Allergy, Intermediate, Rash, 11/06/17) Sulfa Antibiotics (Verified Allergy, Intermediate, RASH, 09/17/17) Physical Exam Vital Signs Date Time Temp Pulse Resp B/P (MAP) Pulse Ox O2 Delivery O2 Flow Rate FiO2 11/06/17 18:28 82 11/06/17 18:25 82 22 125/68 97 11/06/17 17:26 111 22 118/61 97 Room Air 11/06/17 15:37 37.2 81 20 165/82 99 Room Air Physical Exam GENERAL: Awake, alert, uncomfortable-appearing, in no distress HENT: Normocephalic, atraumatic. Dry mucous membranes. EYES: Normal conjunctiva. Sclera non-icteric. NECK: Supple. No nuchal rigidity. FROM. No JVD. RESPIRATORY: Clear to auscultation. CARDIAC: Regular rate, normal rhythm. Extremities warm and well perfused. Pulses equal. ABDOMEN: Soft, non-distended. No tenderness to palpation. No rebound or guarding. No masses. RECTAL: Deferred. MUSCULOSKELETAL: Chest examination reveals no tenderness. The back is symmetrical on inspection with a 6x4 cm area of edema, scant erythema and warmth in the lumbar region. There is no CVA tenderness to palpation. No joint edema. LOWER EXTREMITIES: Calves are equal size bilaterally and non-tender. No edema. No discoloration. 5/5 strength and SILT. NEURO: Normal sensorium. No sensory or motor deficits noted. SKIN: No rash or jaundice noted. Medical Decision & Procedures ER Provider Diagnostic Interpretation: Xray results as stated below per my and radiologist interpretation. Radiology results as stated below per my review and radiologist interpretation: CHEST ONE VIEW PORTABLE CLINICAL HISTORY: Evaluate Fever/Sepsis COMPARISON STUDY: Chest radiograph November 09, 2016. FINDINGS: Left shoulder arthroplasty is incidentally noted. Patient is rotated. No pneumothorax or pleural effusion is noted. There is no consolidation. There is no evidence for pulmonary edema. There is borderline cardiomegaly. IMPRESSION: No acute cardiopulmonary findings. Electronically signed by: Kale Cabrales M.D. 11/06/2017 7:21 PM Dictated Date/Time: 11/06/2017 7:20 PM MRI OF THE LUMBAR SPINE WITH AND WITHOUT CONTRAST CLINICAL HISTORY: s/p remote fusion, pain, swelling, redness warmth. COMPARISON STUDY: Lumbar spine MRI June 04, 2016 TECHNIQUE: Utilizing a 1.5 Rosalind magnet and dedicated coil, multiplanar, multiecho imaging of the lumbar spine was performed before and after uneventful IV administration of 12 mL of Gadavist. FINDINGS: For purposes of numbering on this exam, the L5-S1 disc space is assigned to axial image 31 of 35. There is 6 mm anterolisthesis of L4 and L5. The patient is status post L4-L5 discectomy with interbody spacer placement. There is a posterior decompression with bilateral pedicle screws at the L3, L4 and L5 levels. Note is made of a complex multiloculated operative bed fluid collection with 2 components which communicate with one another. Subcutaneous component measures 6.7 x 4 x 5.9 cm. This demonstrates peripheral enhancement. This communicates with a laminectomy bed component that measures 4 x 3.6 x 2.3 cm. Smaller components are noted inferiorly, including a 1.9 x 0.9 cm peripherally enhancing fluid collection adjacent to the right transverse process of L4. Increased T2 signal and enhancement is noted within the adjacent paraspinal musculature. No evidence of discitis or osteomyelitis. Conus terminates at the T12-L1 level. L1-2: The central canal and neural foramen are patent. L2-3: There is disc bulge, ligamentous hypertrophy and facet arthrosis that result in moderate narrowing of the central canal and lateral recesses. There is mild narrowing of both neural foramen. L3-4: The central canal and neural foramen are patent. L4-5: The central canal is patent. There is mild narrowing of both neural foramen. L5-S1: The central canal and neural foramen are patent. IMPRESSION: 1. Status post L4-L5 discectomy and L3-L5 laminectomy and bilateral pedicle screw fusion. 2. Several multiloculated rim-enhancing operative bed fluid collections, including a 6.7 x 4 x 5.9 cm subcutaneous fluid collection which communicates with a 4 x 3.6 x 2.3 cm laminectomy bed fluid collection, located adjacent to the hardware. Several additional smaller fluid collections, as described above, with associated signal abnormality and enhancement within the paraspinal musculature. These are nonspecific in the postoperative setting and sterility cannot be assessed by MRI but these findings raise the possibility of an infectious process with abscesses. Complex seromas or pseudomeningocele could appear similar. Correlation with clinical evidence for an infectious process is recommended. 3. Moderate central canal stenosis at L2-L3, as described above. Otherwise, patent central canal. 4. No evidence for discitis or osteomyelitis. 5. Indeterminate 6 cm lower abdominal T2 hyperintense focus. This may simply represent a bowel loop however a follow-up CT of the abdomen and pelvis could be obtained to exclude a fluid collection or cystic lesion. Electronically signed by: Kale Cabrales M.D. 11/06/2017 9:08 PM Dictated Date/Time: 11/06/2017 8:53 PM Laboratory Results 11/06/17 18:00 Red Blood Count 4.29, Mean Corpuscular Volume 86.9, Mean Corpuscular Hemoglobin 28.0, Mean Corpuscular Hemoglobin Concent 32.2, Mean Platelet Volume 10.4, Neutrophils (%) (Auto) 67.7, Lymphocytes (%) (Auto) 22.0, Monocytes (%) (Auto) 8.3, Eosinophils (%) (Auto) 1.7, Basophils (%) (Auto) 0.1, Neutrophils # (Auto) 6.29, Lymphocytes # (Auto) 2.04, Monocytes # (Auto) 0.77, Eosinophils # (Auto) 0.16, Basophils # (Auto) 0.01 11/06/17 18:00 Test 11/06/17 18:00 11/06/17 18:10 White Blood Count 9.29 K/uL (4.8-10.8) Red Blood Count 4.29 M/uL (4.7-6.1) Hemoglobin 12.0 g/dL (14.0-18.0) Hematocrit 37.3 % (42-52) Mean Corpuscular Volume 86.9 fL (80-100) Mean Corpuscular Hemoglobin 28.0 pg (25-34) Mean Corpuscular Hemoglobin Concent 32.2 g/dl (32-36) Platelet Count 356 K/uL (130-400) Mean Platelet Volume 10.4 fL (7.4-10.4) Neutrophils (%) (Auto) 67.7 % Lymphocytes (%) (Auto) 22.0 % Monocytes (%) (Auto) 8.3 % Eosinophils (%) (Auto) 1.7 % Basophils (%) (Auto) 0.1 % Neutrophils # (Auto) 6.29 K/uL (1.4-6.5) Lymphocytes # (Auto) 2.04 K/uL (1.2-3.4) Monocytes # (Auto) 0.77 K/uL (0.11-0.59) Eosinophils # (Auto) 0.16 K/uL (0-0.5) Basophils # (Auto) 0.01 K/uL (0-0.2) RDW Standard Deviation 52.1 fL (36.4-46.3) RDW Coefficient of Variation 16.3 % (11.5-14.5) Immature Granulocyte % (Auto) 0.2 % Immature Granulocyte # (Auto) 0.02 K/uL (0.00-0.02) Urine Color YELLOW Urine Appearance CLEAR (CLEAR) Urine pH 6.0 (4.5-7.5) Urine Specific [place] 1.026 (1.000-1.030) Urine Protein NEG (NEG) Urine Glucose (UA) NEG (NEG) Urine Ketones NEG (NEG) Urine Occult Blood NEG (NEG) Urine Nitrite NEG (NEG) Urine Bilirubin NEG (NEG) Urine Urobilinogen NEG (NEG) Urine Leukocyte Esterase NEG (NEG) Urine WBC (Auto) 0 /hpf (0-5) Urine RBC (Auto) 0-4 /hpf (0-4) Urine Hyaline Casts (Auto) 0 /lpf (0-5) Urine Epithelial Cells (Auto) 0-5 /lpf (0-5) Urine Bacteria (Auto) NEG (NEG) Anion Gap 6.0 mmol/L (3-11) Est Creatinine Clear Calc Drug Dose 111.3 ml/min Estimated GFR () 104.3 Estimated GFR (Non- 90.0 BUN/Creatinine Ratio 12.9 (10-20) Calcium Level 9.1 mg/dl (8.5-10.1) Total Bilirubin 0.7 mg/dl (0.2-1) Direct Bilirubin 0.1 mg/dl (0-0.2) Aspartate Amino Transf (AST/SGOT) 39 U/L (15-37) Alanine Aminotransferase (ALT/SGPT) 68 U/L (12-78) Alkaline Phosphatase 93 U/L (45-117) Total Protein 8.4 gm/dl (6.4-8.2) Albumin 2.7 gm/dl (3.4-5.0) Lactic Acid Level 1.5 mmol/L (0.4-2.0) Laboratory results reviewed by me Medications Administered Medications (Trade) Dose Ordered Sig/Lu Route Start Time Stop Time Status Last Admin Dose Admin Sodium Chloride 1,000 ml @ 999 mls/hr Q1H1M STAT IV 11/06/17 17:39 11/06/17 18:39 DC 11/06/17 18:18 999 MLS/HR Morphine Sulfate (MoRPHine SULFATE INJ) 6 mg NOW STAT IV 11/06/17 17:39 11/06/17 17:44 DC 11/06/17 18:21 4 MG Morphine Sulfate (MoRPHine SULFATE INJ) 2 mg STK-MED ONCE .ROUTE 11/06/17 17:47 11/06/17 17:48 DC 11/06/17 17:56 2 MG ED Course 1729: The patient was evaluated in room A12A. A complete history and physical exam was performed. 1739: Morphine Sulfate 6 mg IV, NSS 1000 ml @ 999 mls/hr IV. 1748: I discussed the patient with Dr. Briggs, [facility] [place] - He will evaluate the patient for further treatment. 1752: Upon reexamination, the patient was stable. I discussed the test results and treatment plan with him and his . The patient will be evaluated for further management. 1857: Ativan Tab 1 mg PO. Medical Decision I reviewed the patient's past medical history, medications, and the nursing notes as described above. Differential diagnosis: seroma, infected seroma, abscess, cellulitis, bacteremia. The patient is a 62 y/o gentleman with a pmhx of lumbar diskectomy/laminectomy in 2016 who presents to the emergency department with worsening back pain and swelling at the level of his prior surgery with outpatient US concerning for possible infected seroma per HPI. On arrival the patient is uncomfortable but in NAD, AFVSS. Case d/w Dr. Briggs, ortho-spine and patient's surgeon, who agrees with plan for labs and MRI. Given the patient's sx and fluid collection Dr. Briggs will admit the patient to his service with plan for washout. Labs unremarkable with WBC and lactate wnl. CXR unremarkable. Given afebrile and reassuring lab work ABX deferred pending MRI results. MRI demonstrates subcutaneous fluid collection that communicates to similar sized laminectomy bed fluid collection. No evidence of diskitis or osteomyelitis. Unable to determine sterility of fluid collection on MRI. Dr. Briggs updated on MRI read and agrees to hold on abx. Plan for AM OR washout. Patient admitted to floor following MRI. Medication Reconcilliation Current Medication List: was personally reviewed by me Blood Pressure Screening Patient's blood pressure: Elevated blood pressure Blood pressure disposition: Elevated BP felt to be situational Consults Time Called: [id number] Consulting Physician: Dr. Briggs, [facility] [place] Returned Call: [phone] I discussed the patient with him - He will evaluate the patient for further treatment. Impression Primary Impression: Seroma Scribe Attestation The scribe's documentation has been prepared under my direction and personally reviewed by me in its entirety. I confirm that the note above accurately reflects all work, treatment, procedures, and medical decision making performed by me. Departure Information Dispostion Being Evaluated By Surgeon Referrals Chantale Morales DO (PCP) Patient Instructions My [facility]
[2017-11-07] VITALS (12 sets, daily range): BP systolic 112–164; BP diastolic 65–97; PULSE 66–76; TEMP 36.4–37.5; O2SAT 92–96
[2017-11-07 01:21] LABS: INFLUENZA B ANTIGEN Neg for Influ B (NEG)
[2017-11-07] MEDS: TAMSULOSIN HCL 0.4 MG CAP PO SCH (09:20)
[2017-11-07] MEDS: CARVEDILOL 6.25 MG TAB PO SCH ×2 (09:20→21:26)
[2017-11-07] MEDS: DOCUSATE SODIUM 100 MG CAP PO SCH ×2 (09:20→21:26)
--- NOTE | 2017-11-07 11:00 | History and Physical ---
History & Physical Date Nov 07, 2017. Chief Complaint Severe back pain History of Present Illness The patient is a 62 year old male with complaints of severe back pain. This been progressing over the past several weeks. He does describe a history of intermittent swelling across the lumbar spine for several months. Recently the swelling has created significant discomfort and now active drainage from the previous lumbar incision. He is status post lumbar decompression and fusion June 11. He has done well postoperatively until this recent event. He denies any leg pain weakness. He still quite active. He works out on a regular basis. Past Medical/Surgical History Medical Problems: (1) Acute renal failure (2) Back pain (3) Crohn's disease (4) Diverticulosis Colon (W/O Ment Of Hemorrhage) (5) Hypertension (6) Hypertension Nos (7) Hypokalemia (8) Hypomagnesemia (9) Hypophosphatemia (10) Knee effusion, right (11) Localized, primary osteoarthritis of the lower leg (12) Lumbar stenosis with neurogenic claudication (13) Obesity, Nos (14) Sepsis (15) Sepsis (16) Small bowel obstruction (17) Small bowel obstruction Surgical Problems: (1) Hip Joint Replacement Status (2) History of knee replacement, total (3) Post-operative state (4) Shoulder Joint Replacement Status Additional History Hepatic Disease: No Endocrine Disorder: No Kidney Disease: No Hypertension: No Heart Disease: No Bleeding Tendencies: No Infectious Diseases: No Allergies Coded Allergies: Cefdinir (Verified Allergy, Intermediate, Rash, 11/06/17) Sodium Benzoate (Verified Allergy, Intermediate, Rash, 11/06/17) Sulfa Antibiotics (Verified Allergy, Intermediate, RASH, 09/17/17) Home Medications Scheduled Adalimumab (Humira Pen), 40 MCG INJ WK Amoxicillin (Amoxil), 500 MG PO TID Carvedilol (Carvedilol), 6.25 MG PO BID Ergocalciferol (Vitamin D 45417 Unit), 50,000 INTER.UNIT PO WK Folic Acid (Folic Acid), 800 MCG PO QAM Multiple Vitamin (Multivitamin), 1 TAB PO QAM [place]-3 Fatty Acids (Fish Oil), 1,000 MG PO QAM Tamsulosin HCl (Tamsulosin HCl), 0.4 MG PO QAM Scheduled PRN Dicyclomine HCl (Dicyclomine HCl), 10 MG PO TID PRN for Abdominal Pain/Cramping Physical Examination Skin: warm/dry, no rash Eyes: normal inspection, EOMI, sclerae normal ENT: normal ENT inspection, pharynx normal Head: normocephalic, atraumatic Neck: supple, no adenopathy, trachea midline Respiratory/Chest: lungs clear, normal breath sounds, no respiratory distress Cardiovascular: regular rate, rhythm, no edema, no murmur Abdomen / GI: normal bowel sounds, non tender Back: normal inspection Extremities: normal inspection, normal range of motion Neurologic/Psych: no motor/sensory deficits, alert, normal reflexes, oriented x 3 Addiitonal Comments: On exam exhibits plus 5 out of 5 bilateral plantar flexion dorsiflexion quadriceps. Sensory is intact and symmetric bilateral tremors. Negative logroll. He is active drainage from the lumbar spine with erythema. Diagnosis Epidural abscess with drainage lumbar spine. Plan of Treatment Plan at this time a long discussion with the patient and his family reviewing his MRI findings clinical presentation. At this time would recommend urgent decompression and debridement of all the lumbar spine. This may include removal of instrumentation. He also described possible application of a wound VAC versus implantation of antibiotic beads. Risks benefits pros cons and alternatives were outlined in detail. Risks include but not limited to from anesthesia plan history of paralysis nerve damage as well as current transfusion infection requiring reoperation. Beneficial to be marked improved his back pain and eradication of infection. At this time he is comfortable moving forward with procedure.
[2017-11-07] MEDS ORDERED: MIDAZOLAM HCL 1 MG/ML 2ML VIAL ONE (13:16)
[2017-11-07] MEDS ORDERED: FENTANYL CITRATE INJ 50 MCG/1 ML 2 ML VIAL ONE ×2 (13:16→14:19)
[2017-11-07] MEDS ORDERED: BACITRACIN 50000 UNIT VIAL ONE ×2 (13:42→13:45)
[2017-11-07] MEDS ORDERED: BUPIVACAINE/EPINEPHRINE 0.5% MPF 1:200,000 30 ML VIAL ONE (13:42)
[2017-11-07] MEDS ORDERED: GENTAMICIN SULFATE 40 MG/ML 2 ML VIAL ONE ×3 (13:44→15:13)
[2017-11-07] MEDS ORDERED: VANCOMYCIN HCL 1000MG/20ML VIAL ONE ×3 (13:45→15:06)
[2017-11-07] MEDS ORDERED: HYDROmorphone INJ 2 MG/ML SYR/VIAL ONE (14:19)
[2017-11-07] MEDS ORDERED: KETOROLAC TROMETHAMINE 30 MG/ML VIAL ONE (14:51)
[2017-11-07] MEDS ORDERED: PROPOFOL IV EMULSION 10 MG/ML 20 ML VIAL IV ONE (14:51)
[2017-11-07] MEDS ORDERED: DEXAMETHASONE SOD INJ 4 MG/ML VIAL ONE (14:51)
[2017-11-07] MEDS ORDERED: CLINDAMYCIN PHOS 150 MG/ML 2 ML VIAL ONE (14:51)
[2017-11-07] MEDS ORDERED: GLYCOPYRROLATE INJ 0.2 MG/ML VIAL ONE ×2 (14:51→15:03)
[2017-11-07] MEDS ORDERED: EpHEDrine SULFATE 50MG/5ML SYR ONE (14:51)
[2017-11-07] MEDS ORDERED: ONDANSETRON INJ 2 MG/ML 2 ML VIAL ONE (14:51)
[2017-11-07] MEDS ORDERED: LIDOCAINE HCL 2% 2 ML VIAL (20MG/ML) ONE (14:51)
[2017-11-07] MEDS ORDERED: PHENYLEPHRINE HCL INJ 10 MG/ML VIAL ONE (15:03)
[2017-11-07] MEDS ORDERED: FENTANYL CITRATE INJ 50 MCG/1 ML 2 ML VIAL IV PRN (15:15)
[2017-11-07] MEDS ORDERED: ATROPINE SULFATE 0.1 MG/ML 5ML SYR IV PRN (15:15)
[2017-11-07] MEDS ORDERED: HYDROmorphone INJ 1 MG/ML SYR IV PRN ×2 (15:15→16:00)
[2017-11-07] MEDS ORDERED: EpHEDrine SULFATE INJ 50 MG/ML AMP IV PRN (15:15)
[2017-11-07] MEDS ORDERED: ONDANSETRON INJ 2 MG/ML 2 ML VIAL IV PRN ×2 (15:15→16:00)
[2017-11-07] MEDS ORDERED: PROMETHAZINE HCL INJ 6.25 MG in SODIUM CHLORIDE 0.9% 50ML 50 ML IV PRN (15:15)
--- NOTE | 2017-11-07 15:38 | DIAGNOSTIC IMAGING REPORT ---
LUMBAR SPINE, INTRAOPERATIVE FLUOROSCOPY HISTORY: Hardware removal.. FLUOROSCOPY TIME: 4 seconds. FINDINGS: Intraoperative fluoroscopy was provided for the lumbar spine. A single fluoroscopic spot image of the lower lumbar spine. Removal of the L3-L5 pedicle screws and rods. The disc spacer at L4-L5 remains. IMPRESSION: Fluoroscopy provided for a removal of the L3-L5 pedicle screws and rods.. Electronically signed by: Romeo Charles M.D. 11/07/2017 3:37 PM Dictated Date/Time: 11/07/2017 3:32 PM
--- NOTE | 2017-11-07 15:39 | Anesthesiology Progress Note ---
Anesthesia Post Op Note Date & Time Nov 07, 2017 at 15:38 Vital Signs Pain Intensity: 3.0 Vital Signs Past 12 Hours Date Time Temp Pulse Resp B/P (MAP) Pulse Ox O2 Delivery O2 Flow Rate FiO2 11/07/17 09:17 37.2 69 136/84 (101) 11/07/17 08:49 96 Room Air 11/07/17 07:50 37.0 76 19 164/97 (119) 96 Room Air 11/07/17 07:05 Room Air Notes Mental Status: alert / awake / arousable, participated in evaluation Pt Amnestic to Procedure: Yes Nausea / Vomiting: adequately controlled Pain: adequately controlled Airway Patency, RR, SpO2: stable & adequate BP & HR: stable & adequate Hydration State: stable & adequate Anesthetic Complications: no major complications apparent
[2017-11-07] MEDS ORDERED: SODIUM CHLORIDE 0.9% 1000ML 1,000 ML IV SCH (15:50)
--- NOTE | 2017-11-07 15:50 | [facility] Operative Report ---
Operative Report Operative Date Nov 07, 2017. Pre-Operative Diagnosis Lumbar epidural abscess Post-Operative Diagnosis Same Procedure(s) Performed 1. Removal of posterior segmental instrumentation L3-4 L4-5. #2 exploration of fusion #3 evacuation of epidural abscess with debridement of necrotic tissue L3-4 L4-5. Surgeon Brigitte Marriage And Family Social Worker Surgeon(s) Herrera Estimated Blood Loss 100 cc Findings Purulent epidural fluid Description of Procedure Patient was met with preoperatively case discussed all questions addressed. After informed consent obtained patient was taken to the operative suite underwent intubation and placed in a prone position on the Don table on top of the Srini frame. Sharp dissection with the assistance of a recurrence performed down to the lumbar fascia. Subcutaneous abscess identified. I sharply debrided the skin edges and clean the margins. I then proceeded through the fascia to the epidural space. Marked purulence was noted. I then proceeded to remove the hardware bilaterally exploring the fusion mass noted to be intact. I then debrided all necrotic infected looking tissue to clean edges. Several liters of antibiotic solution were then irrigated. I then placed stimulan leads impregnated with gentamicin and vancomycin in the epidural space and posterior lateral gutters. 15 round ALISON drain was inserted. We then closed the fascial layer in interrupted fashion. I then placed the remaining beads in the epidural space and this layer was closed with subcutaneous Vicryl and ej for final skin closure. Patient was then awakened taken to PACU stable condition. Please note Aline Silverman was present throughout the entire procedure involved in patient positioning complex portions of the surgery and fashion closure. I attest to the content of the Intraoperative Record and any orders documented therein. Any exceptions are noted below.
[2017-11-07] MEDS ORDERED: ACETAMINOPHEN 325 MG TAB PO PRN (16:00)
[2017-11-07] MEDS ORDERED: LORAZEPAM INJ 1 MG in SYRINGE 0 ML IV PRN (16:00)
[2017-11-07] MEDS ORDERED: DO NOT ADMINISTER PNEUMOCOCCAL VACCINE PRN (16:00)
[2017-11-07] MEDS ORDERED: DO NOT ADMINISTER FLU VACCINE PRN (16:00)
[2017-11-07] MEDS ORDERED: OXYCODONE HCL IR 5 MG TAB (IMMEDIATE RELEASE) PO PRN (16:00)
[2017-11-07] MEDS ORDERED: MAGNESIUM HYDROXIDE SUSP 30 ML UDC PO PRN (16:00)
[2017-11-07] MEDS ORDERED: KETOROLAC TROMETHAMINE 30 MG/ML VIAL IV. PRN (16:00)
[2017-11-07] MEDS ORDERED: ACETAMINOPHEN 500 MG TAB PO PRN (16:00)
[2017-11-07] MEDS ORDERED: LORAZEPAM 1 MG TAB PO PRN (16:00)
[2017-11-07] MEDS ORDERED: HYDROmorphone INJ 2 MG/ML SYR/VIAL IV PRN (16:15)
--- NOTE | 2017-11-07 16:49 | Anesthesiology Progress Note ---
Anesthesia Post Op Note Date & Time Nov 07, 2017 at 16:49 Vital Signs Pain Intensity: 0 Vital Signs Past 12 Hours Date Time Temp Pulse Resp B/P (MAP) Pulse Ox O2 Delivery O2 Flow Rate FiO2 11/07/17 16:30 36.9 71 20 134/73 96 Nasal Cannula 2 11/07/17 16:20 73 20 123/74 100 Nasal Cannula 2 11/07/17 16:10 70 20 122/75 100 Oxymask 10 11/07/17 16:01 36.9 79 20 128/75 100 Oxymask 10 11/07/17 09:17 37.2 69 136/84 (101) 11/07/17 08:49 96 Room Air 11/07/17 07:50 37.0 76 19 164/97 (119) 96 Room Air 11/07/17 07:05 Room Air Notes Mental Status: alert / awake / arousable, participated in evaluation Pt Amnestic to Procedure: Yes Nausea / Vomiting: adequately controlled Pain: adequately controlled Airway Patency, RR, SpO2: stable & adequate BP & HR: stable & adequate Hydration State: stable & adequate Anesthetic Complications: no major complications apparent
--- NOTE | 2017-11-07 20:28 | Medical Consult ---
Consultation Date of Consultation: Nov 07, 2017. Attending Physician: Bret Briggs D.O. History of Present Illness 62 y/o M Hx Crohn's, obesity, DJD, HTN, lumbar fusion 2015 - - presented to the ER with intractable lower back pain and fevers 11/06. An MRI was obtained which suggested infection of previously placed hardware and an epidural abscess (results below). The pt was admitted and proceeded to the OR for removal of L3- 4, L4-5 hardware and evacuation of an epidural abscess with debridement of associated necrotic tissue. He is currently recovering and we are asked to assume medical management post-op. The pt denies excessive pain currently, denies CP, SOB, N/V or dysuria. He has good strength in hi lower extremities and denies numbness or incontinence. Last fever on record was 11/06 at approximately 11p. Lumbar MRI 1. Status post L4-L5 discectomy and L3-L5 laminectomy and bilateral pedicle screw fusion. 2. Several multiloculated rim-enhancing operative bed fluid collections, including a 6.7 x 4 x 5.9 cm subcutaneous fluid collection which communicates with a 4 x 3.6 x 2.3 cm laminectomy bed fluid collection, located adjacent to the hardware. Several additional smaller fluid collections, as described above with associated signal abnormality and enhancement within the paraspinal musculature. These are nonspecific in the postoperative setting and sterility cannot be assessed by MRI but these findings raise the possibility of an infectious process with abscesses. Complex seromas or pseudomeningocele could appear similar. Correlation with clinical evidence for an infectious process is recommended. 3. Moderate central canal stenosis at L2-L3, as described above. Otherwise, patent central canal. 4. No evidence for discitis or osteomyelitis. 5. Indeterminate 6 cm lower abdominal T2 hyperintense focus. This may simply represent a bowel loop however a follow-up CT of the abdomen and pelvis could be obtained to exclude a fluid collection or cystic lesion. Past Medical/Surgical History 1_ Crohn's dosease - treated with Humira 2) HTN 3) TESHA 4) Obese Surgical 1) Shoulder replacement 2008 2) JACKSON 3) R TKA - 2011 4) Lumbar decompression and fusion 2015 Family History FH: heart attack FH: stroke Heart disease Hypertension Social History One alcoholic beverage weekly - nonsmoker Smoking Status: Never Smoker Drug Use: none Marital Status: Housing Status: lives with family Occupation Status: employed Allergies Coded Allergies: Cefdinir (Verified Allergy, Intermediate, Rash, 11/06/17) Sodium Benzoate (Verified Allergy, Intermediate, Rash, 11/06/17) Sulfa Antibiotics (Verified Allergy, Intermediate, RASH, 09/17/17) Current Inpatient Medications Current Inpatient Medications Medications (Trade) Dose Ordered Sig/Lu Route Start Time Stop Time Status Last Admin Dose Admin Acetaminophen (Tylenol Tab) 650 mg Q6H PRN PO 11/06/17 19:00 12/06/17 18:59 11/06/17 23:17 650 MG Docusate Sodium (coLACE CAP) 100 mg BID PO 11/06/17 21:00 12/06/17 20:59 11/07/17 09:20 100 MG Promethazine HCl 12.5 mg/Sodium Chloride 50.5 ml @ 202 mls/hr Q6H PRN IV 11/06/17 19:00 12/06/17 18:59 Ondansetron HCl (Zofran Inj) 4 mg Q6H PRN IV 11/06/17 19:00 12/06/17 18:59 Oxycodone/ Acetaminophen (Percocet 5-325mg Tab) Moderate to Severe yaima... Q4H PRN PO 11/06/17 19:00 11/20/17 18:59 Carvedilol (Coreg Tab) 6.25 mg BID PO 11/06/17 21:00 12/06/17 20:59 11/07/17 09:20 6.25 MG Dicyclomine HCl (Bentyl Cap) 10 mg TID PRN PO 11/06/17 19:00 12/06/17 18:59 Tamsulosin HCl (Flomax Cap) 0.4 mg QAM PO 11/07/17 09:00 12/07/17 08:59 11/07/17 09:20 0.4 MG Miscellaneous (Iv Fluids Completed) 1 ea PRN PRN N/A 11/06/17 19:00 11/06/18 18:59 Fentanyl Citrate (Fentanyl Inj) 50 mcg Q5M PRN IV 11/07/17 15:15 11/07/17 20:15 Hydromorphone HCl (Dilaudid Inj) 0.5 mg Q5M PRN IV 11/07/17 15:15 11/07/17 20:15 Ondansetron HCl (Zofran Inj) 4 mg ONE PRN IV 11/07/17 15:15 11/07/17 20:15 Promethazine HCl 6.25 mg/Sodium Chloride 50.25 ml @ 202 mls/hr ONE PRN IV 11/07/17 15:15 11/07/17 20:15 Ephedrine Sulfate (EpHEDrine SULFATE INJ) 5 mg Q5M PRN IV 11/07/17 15:15 11/07/17 20:15 Atropine Sulfate (Atropine Sulfate 0.1mg/ml Inj) 0.5 mg Q1M PRN IV 11/07/17 15:15 11/07/17 20:15 Magnesium Hydroxide (Milk Of Magnesia Susp) 30 ml DAILY PRN PO 11/07/17 16:00 12/07/17 15:59 Clindamycin Phosphate 600 mg/ Dextrose 54 ml @ 100 mls/hr Q8 IV 11/07/17 22:00 11/08/17 14:33 Lorazepam (Ativan Tab) 1 mg Q8H PRN PO 11/07/17 16:00 12/07/17 15:59 Lorazepam 1 mg/ Syringe 0.5 ml @ 1 mls/min Q8 PRN IV 11/07/17 16:00 12/07/17 15:59 Pneumococcal Polysaccharide Vaccine 1 ea PRN PRN N/A 11/07/17 16:00 12/07/17 15:59 Influenza Virus Vacc Triv Types A&B 1 ea PRN PRN N/A 11/07/17 16:00 12/07/17 15:59 Sodium Chloride 1,000 ml @ 80 mls/hr [id number] IV 11/07/17 15:50 11/08/17 15:49 Oxycodone HCl (Roxicodone Immediate Rel Tab) 5 mg Q4H PRN PO 11/07/17 16:00 11/21/17 15:59 Ketorolac Tromethamine (Toradol Inj) 30 mg Q6H PRN IV. 11/07/17 16:00 11/12/17 15:59 Hydromorphone HCl (Dilaudid Inj) 1 mg Q3H PRN IV 11/07/17 16:00 11/21/17 15:59 Polyethylene (Miralax Powder Packet) 17 gm DAILY PO 11/10/17 09:00 12/10/17 08:59 Bisacodyl (Dulcolax Tab) 5 mg DAILY PRN PO 11/09/17 06:00 12/09/17 05:59 Bisacodyl (Dulcolax Supp) 10 mg DAILY PRN [place] 11/09/17 06:00 12/09/17 05:59 Multivitamins (Multivitamin Tab) 1 tab QAM PO 11/08/17 09:00 12/08/17 08:59 Hydromorphone HCl (Dilaudid Inj) 2 mg Q3H PRN IV 11/07/17 16:15 11/21/17 16:14 Review of Systems Constitutional: + fever (on admission), + chills Eyes: No worsening of vision ENT: No hearing loss, No unusual epistaxis, No nasal symptoms Respiratory: No cough, No sputum, No wheezing Cardiovascular: No chest pain, No orthopnea, No PND Abdomen: No pain, No nausea, No vomiting Musculoskeletal: + joint pain (Intractable lower back pain) Genitourinary - Male: No hematuria, No dysuria Neurologic: No memory loss, No paralysis Psychiatric: No depression symptoms Endocrine: No fatigue Hematologic / Lymphatic: No abnormal bleeding/bruising Integumentary: No rash Allergic / Immunologic: No environmental allergies Physical Exam Date Time Temp Pulse Resp B/P (MAP) Pulse Ox O2 Delivery O2 Flow Rate FiO2 11/07/17 19:15 36.7 66 19 135/70 (91) 93 Room Air 11/07/17 18:45 36.6 69 20 113/78 (90) 96 Room Air 11/07/17 17:15 Room Air 11/07/17 17:15 92 Room Air 11/07/17 16:45 36.4 70 15 133/78 (96) 92 Room Air 11/07/17 16:30 36.9 71 20 134/73 96 Nasal Cannula 2 11/07/17 16:20 73 20 123/74 100 Nasal Cannula 2 11/07/17 16:10 70 20 122/75 100 Oxymask 10 11/07/17 16:01 36.9 79 20 128/75 100 Oxymask 10 11/07/17 09:17 37.2 69 136/84 (101) 11/07/17 08:49 96 Room Air 11/07/17 07:50 37.0 76 19 164/97 (119) 96 Room Air 11/07/17 07:05 Room Air 11/07/17 02:16 37.5 11/07/17 00:10 95 Room Air 11/06/17 22:48 38.3 84 16 131/72 (91) 94 Room Air 11/06/17 22:43 87 131/72 (91) 11/06/17 21:03 37.6 73 16 154/78 95 Room Air 11/06/17 21:00 Room Air 11/06/17 20:50 37.6 73 18 154/78 (103) 95 Room Air General Appearance: WD/WN, no apparent distress Head: normocephalic Eyes: normal inspection ENT: normal ENT inspection, pharynx normal Neck: supple, no JVD Respiratory/Chest: chest non-tender, lungs clear, normal breath sounds Cardiovascular: regular rate, rhythm, no edema Abdomen/GI: normal bowel sounds, non tender, soft Back: normal inspection, no CVA tenderness, + pertinent finding (A drain is in place eminating from the lumbar abscess) Extremities/Musculoskelatal: normal inspection, no calf tenderness Neurologic/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 An MRI was obtained which suggested infection of previously placed hardware and an epidural abscess (results below). The pt was admitted and proceeded to the OR for removal of L3- 4, L4-5 hardware and evacuation of an epidural abscess with debridement of associated necrotic tissue. He is currently recovering and we are asked to assume medical management post-op. The pt denies excessive pain currently, denies CP, SOB, N/V or dysuria. He has good strength in hi lower extremities and denies numbness or incontinence. Last fever on record was 11/06 at approximately 11p. 1) Epidural abscess - post debridement and hardware removal - OT/OT and anticoagulation to discretion of orthopedics. He is currently receiving Gent, Vanc, Clinda - this can likely be narrowed down when culture results are available. His pain is well managed at present. 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 This may represent a management challenge as it is preferable to hold Humira for a few months post- op. This may be necessary also if he is DCd with a PICC. A plan should be formulated for DC with both the orthopedist and gastro. 3) HTN - Cont Carvedilol 4) BPH - cont Flomax Full code - SCDs total time for this admit including review of labs, meds, imaging, records - discussion/exam of pt and review of ortho notes - 37 min Med will follow daily pending DC
[2017-11-07] MEDS ORDERED: DOCUSATE SODIUM 100 MG CAP PO SCH (21:00)
[2017-11-07] MEDS: CLINDAMYCIN IV 600 MG in DEXTROSE 5% 50ML 50 ML IV SCH (21:25)
[2017-11-08 03:15] VITALS: BP 117/62; PULSE 78; TEMP 36.6; O2SAT 97
[2017-11-08] MEDS ORDERED: NURSING DECISION MEDICATION ORDER SCH (03:30)
[2017-11-08] MEDS: CLINDAMYCIN IV 600 MG in DEXTROSE 5% 50ML 50 ML IV SCH (05:36)
[2017-11-08 07:31] VITALS: BP 142/81; PULSE 81; TEMP 36.8; O2SAT 97
[2017-11-08] MEDS: CARVEDILOL 6.25 MG TAB PO SCH ×2 (08:35→21:16)
[2017-11-08] MEDS: DOCUSATE SODIUM 100 MG CAP PO SCH ×2 (08:35→21:16)
[2017-11-08] MEDS: TAMSULOSIN HCL 0.4 MG CAP PO SCH (08:35)
[2017-11-08] MEDS: MULTIVITAMIN TAB PO SCH (08:36)
[2017-11-08] MEDS: OXYCODONE/ACETAMINOPHEN 5-325 TAB PO PRN ×4 (08:40→21:19)
--- NOTE | 2017-11-08 09:49 | Progress Note ---
Progress Note Date of Service Nov 08, 2017. Progress Note Patient's back pain is improved. He has no leg pain. Vital signs are stable. Cultures pending but there are gram-positive cocci on Gram stain. Assessment status post I&D lumbar spine. Plan at this time we will await final cultures. Anticipate input from infectious disease. Most likely will require PICC line placement for long-term antibiotics.
--- NOTE | 2017-11-08 10:01 | Anesthesiology Progress Note ---
Anesthesia Post Op Note Date & Time Nov 08, 2017 at 10:00 Vital Signs Vital Signs Past 12 Hours Date Time Temp Pulse Resp B/P (MAP) Pulse Ox O2 Delivery O2 Flow Rate FiO2 11/08/17 07:40 Room Air 11/08/17 07:31 36.8 81 19 142/81 (101) 97 Room Air 11/08/17 03:15 36.6 78 16 117/62 (80) 97 Room Air 11/08/17 00:05 Room Air 11/07/17 22:44 36.5 75 18 130/69 (89) 94 Room Air Notes Mental Status: alert / awake / arousable, participated in evaluation Pt Amnestic to Procedure: Yes Nausea / Vomiting: adequately controlled Pain: adequately controlled Airway Patency, RR, SpO2: stable & adequate BP & HR: stable & adequate Hydration State: stable & adequate Anesthetic Complications: no major complications apparent
[2017-11-08] MEDS ORDERED: NURSING VERBAL MED ORDER ONE (10:15)
--- NOTE | 2017-11-08 11:08 | Medical Consult ---
Consultation Date of Consultation: Nov 08, 2017. Attending Physician: Bret Briggs D.O. Reason for Consultation: Lumbar epidural abscess History of Present Illness 62-year-old male with history of hypertension, has a history of lumbar fusion surgery in May 2016. patient states that he has had some intermittent swelling of his lower back with pain since the time of surgery, but was felt to be progressing appropriately. More recently, patient and his had noticed some increasing redness and swelling in the lower lumbar area with localized tenderness. Over the past 5-7 days prior to his admission, patient with progressively worsening low back pain radiating down his legs. Subsequently underwent outpatient MRI which revealed the presence of diskitis and lumbar epidural abscess. He has now undergone surgical debridement with removal of hardware. Operative cultures now growing Staph aureus. Patient has had low- grade fevers and has felt unwell for several weeks. Feeling better postoperatively. Currently afebrile and hemodynamically stable. Currently being treated with Clindamycin. Past Medical/Surgical History Medical Problems: (1) Cellulitis, gluteal, left Status: Acute (2) Seroma Status: Acute Medical Problems: (1) Abscess in epidural space of lumbar spine (2) Acute renal failure (3) Back pain (4) Crohn's disease (5) Diverticulosis Colon (W/O Ment Of Hemorrhage) (6) Hypertension (7) Hypertension Nos (8) Hypokalemia (9) Hypomagnesemia (10) Hypophosphatemia (11) Knee effusion, right (12) Localized, primary osteoarthritis of the lower leg (13) Lumbar stenosis with neurogenic claudication (14) Obesity, Nos (15) Sepsis (16) Sepsis (17) Small bowel obstruction (18) Small bowel obstruction Surgical Problems: (1) Hip Joint Replacement Status (2) History of knee replacement, total (3) Post-operative state (4) Shoulder Joint Replacement Status Family History FH: heart attack FH: stroke Heart disease Hypertension Social History Smoking Status: Never Smoker Drug Use: none Marital Status: Housing Status: lives with family Occupation Status: employed Allergies Coded Allergies: Cefdinir (Verified Allergy, Intermediate, Rash, 11/06/17) Sodium Benzoate (Verified Allergy, Intermediate, Rash, 11/06/17) Sulfa Antibiotics (Verified Allergy, Intermediate, RASH, 09/17/17) Current Inpatient Medications Current Inpatient Medications Medications (Trade) Dose Ordered Sig/Lu Route Start Time Stop Time Status Last Admin Dose Admin Acetaminophen (Tylenol Tab) 650 mg Q6H PRN PO 11/06/17 19:00 12/06/17 18:59 11/06/17 23:17 650 MG Docusate Sodium (coLACE CAP) 100 mg BID PO 11/06/17 21:00 12/06/17 20:59 11/08/17 08:35 100 MG Promethazine HCl 12.5 mg/Sodium Chloride 50.5 ml @ 202 mls/hr Q6H PRN IV 11/06/17 19:00 12/06/17 18:59 Ondansetron HCl (Zofran Inj) 4 mg Q6H PRN IV 11/06/17 19:00 12/06/17 18:59 Oxycodone/ Acetaminophen (Percocet 5-325mg Tab) Moderate to Severe yaima... Q4H PRN PO 11/06/17 19:00 11/20/17 18:59 11/08/17 08:40 1 TAB Carvedilol (Coreg Tab) 6.25 mg BID PO 11/06/17 21:00 12/06/17 20:59 11/08/17 08:35 6.25 MG Dicyclomine HCl (Bentyl Cap) 10 mg TID PRN PO 11/06/17 19:00 12/06/17 18:59 Tamsulosin HCl (Flomax Cap) 0.4 mg QAM PO 11/07/17 09:00 12/07/17 08:59 11/08/17 08:35 0.4 MG Miscellaneous (Iv Fluids Completed) 1 ea PRN PRN N/A 11/06/17 19:00 11/06/18 18:59 Magnesium Hydroxide (Milk Of Magnesia Susp) 30 ml DAILY PRN PO 11/07/17 16:00 12/07/17 15:59 Clindamycin Phosphate 600 mg/ Dextrose 54 ml @ 100 mls/hr Q8 IV 11/07/17 22:00 11/08/17 14:33 11/08/17 05:36 100 MLS/HR Lorazepam (Ativan Tab) 1 mg Q8H PRN PO 11/07/17 16:00 12/07/17 15:59 Lorazepam 1 mg/ Syringe 0.5 ml @ 1 mls/min Q8 PRN IV 11/07/17 16:00 12/07/17 15:59 Pneumococcal Polysaccharide Vaccine 1 ea PRN PRN N/A 11/07/17 16:00 12/07/17 15:59 Influenza Virus Vacc Triv Types A&B 1 ea PRN PRN N/A 11/07/17 16:00 12/07/17 15:59 Oxycodone HCl (Roxicodone Immediate Rel Tab) 5 mg Q4H PRN PO 11/07/17 16:00 11/21/17 15:59 Ketorolac Tromethamine (Toradol Inj) 30 mg Q6H PRN IV. 11/07/17 16:00 11/12/17 15:59 Hydromorphone HCl (Dilaudid Inj) 1 mg Q3H PRN IV 11/07/17 16:00 11/21/17 15:59 Polyethylene (Miralax Powder Packet) 17 gm DAILY PO 11/10/17 09:00 12/10/17 08:59 Bisacodyl (Dulcolax Tab) 5 mg DAILY PRN PO 11/09/17 06:00 12/09/17 05:59 Bisacodyl (Dulcolax Supp) 10 mg DAILY PRN [place] 11/09/17 06:00 12/09/17 05:59 Multivitamins (Multivitamin Tab) 1 tab QAM PO 11/08/17 09:00 12/08/17 08:59 11/08/17 08:36 1 TAB Hydromorphone HCl (Dilaudid Inj) 2 mg Q3H PRN IV 11/07/17 16:15 11/21/17 16:14 Review of Systems All systems were reviewed and are negative except as per HPI Physical Exam Date Time Temp Pulse Resp B/P (MAP) Pulse Ox O2 Delivery O2 Flow Rate FiO2 11/08/17 07:40 Room Air 11/08/17 07:31 36.8 81 19 142/81 (101) 97 Room Air 11/08/17 03:15 36.6 78 16 117/62 (80) 97 Room Air 11/08/17 00:05 Room Air 11/07/17 22:44 36.5 75 18 130/69 (89) 94 Room Air 11/07/17 21:15 36.7 71 19 128/73 (91) 92 Room Air 11/07/17 20:15 36.7 72 19 112/65 (81) 94 Room Air 11/07/17 19:15 36.7 66 19 135/70 (91) 93 Room Air 11/07/17 18:45 36.6 69 20 113/78 (90) 96 Room Air 11/07/17 17:15 Room Air 11/07/17 17:15 92 Room Air 11/07/17 16:45 36.4 70 15 133/78 (96) 92 Room Air 11/07/17 16:30 36.9 71 20 134/73 96 Nasal Cannula 2 11/07/17 16:20 73 20 123/74 100 Nasal Cannula 2 11/07/17 16:10 70 20 122/75 100 Oxymask 10 11/07/17 16:01 36.9 79 20 128/75 100 Oxymask 10 General Appearance: WD/WN, no apparent distress Head: normocephalic, atraumatic Eyes: normal inspection, EOMI, sclerae normal ENT: normal ENT inspection, hearing grossly normal, pharynx normal Neck: supple, no adenopathy, thyroid normal, trachea midline Respiratory/Chest: chest non-tender, lungs clear, normal breath sounds, no respiratory distress Cardiovascular: regular rate, rhythm, no gallop, no murmur Abdomen/GI: normal bowel sounds, non tender, soft, no organomegaly Back: normal inspection, no CVA tenderness, + pertinent finding ( surgical site lesion intact, tenderness over lower lumbar spine) Extremities/Musculoskelatal: normal inspection, no calf tenderness, normal capillary refill, non-tender Neurologic/Psych: alert, normal mood/affect, oriented x 3 Skin: normal color, warm/dry, no rash, + pertinent finding ( surgical dressing intact lumbar area) Lymphatic: no adenopathy Laboratory Results Date/Time Source Procedure Growth Status 11/07/17 14:35 Abscess Lumbar Gram Stain - Final Resulted 11/07/17 14:35 Bacterial Culture - Preliminary Staphylococcus Aureus Resulted MRI OF THE LUMBAR SPINE WITH AND WITHOUT CONTRAST CLINICAL HISTORY: s/p remote fusion, pain, swelling, redness warmth. COMPARISON STUDY: Lumbar spine MRI June 04, 2016 TECHNIQUE: Utilizing a 1.5 Rosalind magnet and dedicated coil, multiplanar, multiecho imaging of the lumbar spine was performed before and after uneventful IV administration of 12 mL of Gadavist. FINDINGS: For purposes of numbering on this exam, the L5-S1 disc space is assigned to axial image 31 of 35. There is 6 mm anterolisthesis of L4 and L5. The patient is status post L4-L5 discectomy with interbody spacer placement. There is a posterior decompression with bilateral pedicle screws at the L3, L4 and L5 levels. Note is made of a complex multiloculated operative bed fluid collection with 2 components which communicate with one another. Subcutaneous component measures 6.7 x 4 x 5.9 cm. This demonstrates peripheral enhancement. This communicates with a laminectomy bed component that measures 4 x 3.6 x 2.3 cm. Smaller components are noted inferiorly, including a 1.9 x 0.9 cm peripherally enhancing fluid collection adjacent to the right transverse process of L4. Increased T2 signal and enhancement is noted within the adjacent paraspinal musculature. No evidence of discitis or osteomyelitis. Conus terminates at the T12-L1 level. Assessment & Plan Lumbar epidural abscess in the setting of back surgery 2016 with cultures positive for Staph aureus. Patient will require prolonged IV antibiotic therapy , and will change patient to daptomycin given multiple allergies and need for outpatient Rx. Will need PICC line. Await final sensitivities. Will follow.
[2017-11-08] MEDS: DAPTOmycin IV 750 MG in SYRINGE 0 ML IV SCH (13:49)
[2017-11-08 15:26] VITALS: BP 116/64; PULSE 65; TEMP 36.9; O2SAT 95
--- NOTE | 2017-11-08 18:14 | Family Medicine Progress Note ---
Progress Note Date of Service Nov 08, 2017. Subjective Consulted for medical management of pt with Crohn's here for OR wash out of infected laminectomy site L3-5 (May 2016), likely due to Humira injections. Pt reports feeling well today, describes brief history of feeling unwell, and swollen laminectomy site, with redness and pus over the weekend prior to admission. and family at bedside. No current active crohns symptoms. Eating well, voiding well. Has no complaints. ROS See HPI for pertinent positives and negatives. Medications Current Inpatient Medications Medications (Trade) Dose Ordered Sig/Lu Route Start Time Stop Time Status Last Admin Dose Admin Acetaminophen (Tylenol Tab) 650 mg Q6H PRN PO 11/06/17 19:00 12/06/17 18:59 11/06/17 23:17 650 MG Docusate Sodium (coLACE CAP) 100 mg BID PO 11/06/17 21:00 12/06/17 20:59 11/08/17 08:35 100 MG Promethazine HCl 12.5 mg/Sodium Chloride 50.5 ml @ 202 mls/hr Q6H PRN IV 11/06/17 19:00 12/06/17 18:59 Ondansetron HCl (Zofran Inj) 4 mg Q6H PRN IV 11/06/17 19:00 12/06/17 18:59 Oxycodone/ Acetaminophen (Percocet 5-325mg Tab) Moderate to Severe yaima... Q4H PRN PO 11/06/17 19:00 11/20/17 18:59 11/08/17 16:59 1 TAB Carvedilol (Coreg Tab) 6.25 mg BID PO 11/06/17 21:00 12/06/17 20:59 11/08/17 08:35 6.25 MG Dicyclomine HCl (Bentyl Cap) 10 mg TID PRN PO 11/06/17 19:00 12/06/17 18:59 Tamsulosin HCl (Flomax Cap) 0.4 mg QAM PO 11/07/17 09:00 12/07/17 08:59 11/08/17 08:35 0.4 MG Miscellaneous (Iv Fluids Completed) 1 ea PRN PRN N/A 11/06/17 19:00 11/06/18 18:59 Magnesium Hydroxide (Milk Of Magnesia Susp) 30 ml DAILY PRN PO 11/07/17 16:00 12/07/17 15:59 Lorazepam (Ativan Tab) 1 mg Q8H PRN PO 11/07/17 16:00 12/07/17 15:59 Lorazepam 1 mg/ Syringe 0.5 ml @ 1 mls/min Q8 PRN IV 11/07/17 16:00 12/07/17 15:59 Pneumococcal Polysaccharide Vaccine 1 ea PRN PRN N/A 11/07/17 16:00 12/07/17 15:59 Influenza Virus Vacc Triv Types A&B 1 ea PRN PRN N/A 11/07/17 16:00 12/07/17 15:59 Oxycodone HCl (Roxicodone Immediate Rel Tab) 5 mg Q4H PRN PO 11/07/17 16:00 11/21/17 15:59 Ketorolac Tromethamine (Toradol Inj) 30 mg Q6H PRN IV. 11/07/17 16:00 11/12/17 15:59 Hydromorphone HCl (Dilaudid Inj) 1 mg Q3H PRN IV 11/07/17 16:00 11/21/17 15:59 Polyethylene (Miralax Powder Packet) 17 gm DAILY PO 11/10/17 09:00 12/10/17 08:59 Bisacodyl (Dulcolax Tab) 5 mg DAILY PRN PO 11/09/17 06:00 12/09/17 05:59 Bisacodyl (Dulcolax Supp) 10 mg DAILY PRN [place] 11/09/17 06:00 12/09/17 05:59 Multivitamins (Multivitamin Tab) 1 tab QAM PO 11/08/17 09:00 12/08/17 08:59 11/08/17 08:36 1 TAB Hydromorphone HCl (Dilaudid Inj) 2 mg Q3H PRN IV 11/07/17 16:15 11/21/17 16:14 Daptomycin 750 mg/ Syringe 15 ml @ 7.5 mls/min DAILY IV 11/08/17 14:00 12/20/17 13:59 11/08/17 13:49 7.5 MLS/MIN Objective Vital Signs Date Time Temp Pulse Resp B/P (MAP) Pulse Ox O2 Delivery O2 Flow Rate FiO2 11/08/17 16:05 Room Air 11/08/17 15:26 36.9 65 20 116/64 (81) 95 Room Air 11/08/17 07:40 Room Air 11/08/17 07:31 36.8 81 19 142/81 (101) 97 Room Air 11/08/17 03:15 36.6 78 16 117/62 (80) 97 Room Air 11/08/17 00:05 Room Air 11/07/17 22:44 36.5 75 18 130/69 (89) 94 Room Air 11/07/17 21:15 36.7 71 19 128/73 (91) 92 Room Air 11/07/17 20:15 36.7 72 19 112/65 (81) 94 Room Air 11/07/17 19:15 36.7 66 19 135/70 (91) 93 Room Air 11/07/17 18:45 36.6 69 20 113/78 (90) 96 Room Air Physical Exam Notes: GENERAL: Awake, alert, well-appearing, in no distress EYES: Normal conjunctiva. Sclera non-icteric. RESPIRATORY: Clear to auscultation. CARDIAC: Regular rate, normal rhythm. Extremities warm and well perfused. Pulses equal. ABDOMEN: Soft, non-distended. No tenderness to palpation. No rebound or guarding. No masses. BACK: Wound packing in place, draining clear pink fluid. LOWER EXTREMITIES: Calves are equal size bilaterally and non-tender. No edema. No discoloration. Stockings in place. SKIN: No rash or jaundice noted. Laboratory Results Last Resulted 11/06/17 18:00 Red Blood Count 4.29, Mean Corpuscular Volume 86.9, Mean Corpuscular Hemoglobin 28.0, Mean Corpuscular Hemoglobin Concent 32.2, Mean Platelet Volume 10.4, Neutrophils (%) (Auto) 67.7, Lymphocytes (%) (Auto) 22.0, Monocytes (%) (Auto) 8.3, Eosinophils (%) (Auto) 1.7, Basophils (%) (Auto) 0.1, Neutrophils # (Auto) 6.29, Lymphocytes # (Auto) 2.04, Monocytes # (Auto) 0.77, Eosinophils # (Auto) 0.16, Basophils # (Auto) 0.01 Last Resulted 11/06/17 18:00 Assessment and Plan 62M here for OR wash out of infected laminectomy site L3-5 PMH: Crohn's, HTN, HLD, lumbar fusion 2016 Epidural abscess - Presented to the ER with intractable lower back pain and fevers 13Mar. An MRI was obtained which suggested infection of previously placed hardware and an epidural abscess. The pt was admitted and proceeded to the OR for removal of L3 -4, L4-5 hardware and evacuation of an epidural abscess with debridement of associated necrotic tissue. Per ID changed to Daptomycin given mult allergies and need for outpatient tx. PICC line ordered. - Awaiting final sensitivities. Crohn's - spoke with pt's body stylist and Humira contraindicated while pt is on antibiotics. Held here. HTN - cont carvedilol BPH - cont flomax DVT ppx: SCD's Code: FULL Thanks for the consult. Will follow as needed. Continued [facility] stay due to: multiple IV medications needed Discharge planning: home Resident Tracking Resident Involvement: Resident Care Provided Care Provided: Adult Hospital Medicine Reviewed: Pt Seen/Exam by Me Constitutional: denies: fever Respiratory: negative: short of breath Cardiovascular: denies chest pain General Appearance: no apparent distress Respiratory: lungs clear, no respiratory distress Cardiovascular: regular rate, rhythm Neurologic/Psychiatric: alert, oriented x 3 Skin Characteristics: warm/dry Assessment/Plan Resident Physician Supervision Note: I independently interviewed and examined the patient and verified the kerr history and physical, reviewed labs and image studies, discussed the case with the resident Dr. Rolle and agree with the findings and care plan. Will follow as needed.
[2017-11-08 21:14] VITALS: BP 106/52; PULSE 65
[2017-11-08 23:28] VITALS: BP 94/52; PULSE 68; TEMP 36.7; O2SAT 92
[2017-11-09] MEDS ORDERED: BISACODYL 5 MG TABEC PO PRN (06:00)
[2017-11-09] MEDS ORDERED: BISACODYL 10 MG SUPP PR PRN (06:00)
[2017-11-09 07:29] LABS: BASO % 0.2 %; BASO ABS # 0.02 K/uL (0-0.2); EOS % 2.1 %; EOS ABS # 0.21 K/uL (0-0.5); HEMATOCRIT 30.7 % (42-52); HEMOGLOBIN 9.7 g/dL (14.0-18.0); IG# 0.02 K/uL (0.00-0.02); LYMPH % 25.4 %; MEAN CELL VOLUME 85.3 fL (80-100); MEAN CORPUSCULAR HEMOGLOBIN 26.9 pg (25-34); MEAN CORPUSCULAR HGB CONC 31.6 g/dl (32-36); MEAN PLATELET VOLUME 9.4 fL (7.4-10.4); MONO % 10.8 %; MONO ABS # 1.06 K/uL (0.11-0.59); NEUT % 61.3 %; NEUT ABS # 6.05 K/uL (1.4-6.5); PLATELET COUNT 324 K/uL (130-400); RED CELL DISTRIBUTION WIDTH CV 16.2 % (11.5-14.5); RED CELL DISTRIBUTION WIDTH SD 51.2 fL (36.4-46.3); WHITE BLOOD COUNT 9.86 K/uL (4.8-10.8)
[2017-11-09 07:54] LABS: CALCIUM 8.5 mg/dl (8.5-10.1); CREATININE 0.88 mg/dl (0.60-1.40); POTASSIUM 4.2 mmol/L (3.5-5.1)
[2017-11-09 08:00] VITALS: BP 130/80; PULSE 73; TEMP 37.5; O2SAT 95
[2017-11-09] MEDS ORDERED: DAPTOmycin IV 750 MG in SODIUM CHLORIDE 0.9% 50ML 50 ML IV SCH (09:00)
[2017-11-09] MEDS: DOCUSATE SODIUM 100 MG CAP PO SCH ×2 (09:11→20:51)
[2017-11-09] MEDS: MULTIVITAMIN TAB PO SCH (09:11)
[2017-11-09] MEDS: TAMSULOSIN HCL 0.4 MG CAP PO SCH (09:12)
[2017-11-09] MEDS: CARVEDILOL 6.25 MG TAB PO SCH ×2 (09:12→20:51)
[2017-11-09] MEDS: DAPTOmycin IV 750 MG in SYRINGE 0 ML IV SCH (10:58)
--- NOTE | 2017-11-09 14:10 | Progress Note ---
Progress Note Date of Service Nov 09, 2017. Progress Note Patient's back pain is markedly improved. He denies any leg pain. He does ambulate without difficulty. Assessment status post I&D and lumbar spine. Plan at this time PICC line is placed he is being arranged for outpatient IV antibiotics. Debora will try to get him discharge home Sunday or Sunday. 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
[2017-11-09] MEDS ORDERED: OXYC-57 PO (14:15)
--- NOTE | 2017-11-09 14:16 | Discharge Instructions ---
Discharge Instructions Date of Service Nov 09, 2017. Admission Reason for Admission: Back Pain Discharge Discharge Diagnosis / Problem: Epidural abscess lumbar spine Discharge Goals Goal(s): Improve function Activity Recommendations Activity Limitations: per Instructions/Follow-up section . Instructions / Follow-Up Instructions / Follow-Up ACTIVITY RECOMMENDATIONS: SELF CARE INSTRUCTIONS AFTER A LAMINECTOMY 1. No prolonged sitting (less than 30 minutes for the first 3 weeks after surgery). 2. No bending, lifting more than 5 pounds, or twisting (roll like a log when turning in bed). 3. You may shower 3 days after surgery if no drainage from wound. Thoroughly dry wound. Do not soak in the tub. 4. Please walk as much as you can for exercise. Gradually increase the distance that you walk as your endurance increases. 5. You may drive in 7-10 days if you are comfortable and no longer requiring pain medications. SPECIAL CARE INSTRUCTIONS: VERY IMPORTANT TO READ AND REVIEW A. Your surgical incision has been closed with a cosmetic suture under the skin that will dissolve in about 6 weeks. In 14 days, you can use a pair of clean scissors and cut the suture that is left outside of the skin at the ends of your incision. B. Complications are uncommon, but please contact us if you have any signs or symptoms of: 1. wound infection (fever higher than 102.5 degrees F, redness, separation of wound, drainage, or increasing pain from the incision) 2. blood clots in legs (pain, swelling, redness and warmth in legs) 3. urinary tract infection (fever higher than 102.5 degrees, burning upon urination or increased frequency of urination) 4. nerve problems (inability to walk on your toes or heels, numbness, loss of bowel or bladder control) 5. any other symptoms that concern you. C. Please call the office at if you have any concerns or questions about your operation or recovery. MANAGING PAIN AFTER SPINAL SURGERY 1. Narcotic medication is intended for short-term use and will be provided for surgical pain. Surgical pain usually lasts for a period of 4-6 weeks. Narcotic medication includes Percocet, Vicodin, Darvocet, Tylenol #3 or Lortab. 2. Longer-term pain is more appropriately treated with non-narcotic medication such as Tylenol ES. 3. Muscle spasm is not appropriately treated with narcotics. Muscle relaxers such as Soma, Flexeril or Skelaxin can be used along with Tylenol ES. 4. Remember that we all live with some "aches and pains". This is not unusual or uncommon after an injury or as we get older. 5. We will provide appropriate medication within the normal guidelines of their prescribed use. We will also be very cautious and aware of potential abuse and extended duration of patients' medication needs. 6. Please allow 2-3 days to process refills. Prescriptions will not be mailed but must be picked up at the office. FOLLOW UP VISIT: Keep your scheduled follow-up appointment. Any questions, please call the office at . Current Hospital Diet Patient's current hospital diet: Regular Diet Discharge Diet Recommended Diet: Regular Diet Procedures Procedures Performed: 1. Removal of posterior segmental instrumentation L3-4 L4-5. #2 exploration of fusion #3 evacuation of epidural abscess with debridement of necrotic tissue L3-4 L4-5. Pending Studies Studies pending at discharge: no Medical Emergencies . Who to Call and When: Medical Emergencies: If at any time you feel your situation is an emergency, please call 911 immediately. . Non-Emergent Contact Non-Emergency issues call your: Primary Care Provider . "Provider Documentation" section prepared by Bret Briggs. .
[2017-11-09 16:01] VITALS: BP 130/75; PULSE 77; TEMP 37.1; O2SAT 97
[2017-11-09 20:49] VITALS: BP 147/64; PULSE 78
[2017-11-09] MEDS: OXYCODONE/ACETAMINOPHEN 5-325 TAB PO PRN (20:51)
[2017-11-09 22:28] VITALS: BP 130/70; PULSE 76; TEMP 37; O2SAT 94
[2017-11-10 07:46] VITALS: BP 97/55; PULSE 62; TEMP 36.7; O2SAT 96
[2017-11-10] MEDS ORDERED: POLYETHYLENE (MIRALAX) 17 GM PACK PO SCH (09:00)
[2017-11-10] MEDS: DOCUSATE SODIUM 100 MG CAP PO SCH (09:00)
--- NOTE | 2017-11-10 09:17 | Discharge Summary ---
Orthopedic Discharge Summary Admission Date/Reason Nov 07, 2017 at 11:45 Back Pain. Discharge Date/Disposition Nov 10, 2017 Home with services Diagnosis Principal Diagnosis: Lumbar epidural abscess Admission Physical Exam As per Admitting History & Physical. Hospital Course Patient was admitted with acute back pain and drainage. He was diagnosed with an epidural abscess. He underwent surgery and evacuation of epidural abscess. This included removal of instrumentation. He subsequently grew out staph aureus. A PICC line was placed. His pain is well controlled. He is neurologically intact. He will be discharged home with home health and IV antibiotics. We will see him next Sunday in the office to assess his incision and most likely related move his drain. Discharge Instructions Please refer to the electronic Patient Visit Report (Discharge Instructions) for additional information.
[2017-11-10 09:30] VITALS: BP 125/69
[2017-11-10] MEDS: DAPTOmycin IV 750 MG in SYRINGE 0 ML IV SCH (09:32)
[2017-11-10] MEDS: MULTIVITAMIN TAB PO SCH (09:33)
[2017-11-10] MEDS: CARVEDILOL 6.25 MG TAB PO SCH (09:33)
[2017-11-10] MEDS: TAMSULOSIN HCL 0.4 MG CAP PO SCH (09:34)
[2017-11-10 10:05] VITALS: BP 125/69; PULSE 62; TEMP 36.7; O2SAT 96
== END 2017-11-10 11:00 | disposition home health service (06) | DRG 29 ==
LOC: C.EDB 15:12 → C.MSN 18:51 → ENRESERV 19:12 → OBSVTOIN 11-07 11:45
PROVIDERS: ADMIT Orthopaedic Surgery Orthopaedic Surgery of the Spine; ATTEND Orthopaedic Surgery Orthopaedic Surgery of the Spine
PROC: 0JC70ZZ Extirpation of Matter from Back Subcutaneous Tissue and Fascia, Open Approach (ICD-10-PCS; principal; 2017-11-07 09:45)
PROC: 009U0ZZ Drainage of Spinal Canal, Open Approach (ICD-10-PCS; principal; 2017-11-07 09:45)
PROC: 3E0S329 Introduction of Other Anti-infective into Epidural Space, Percutaneous Approach (ICD-10-PCS; principal; 2017-11-07 09:45)
PROC: 0SP004Z Removal of Internal Fixation Device from Lumbar Vertebral Joint, Open Approach (ICD-10-PCS; principal; 2017-11-07 09:45)
DX: G06.2 Extradural and subdural abscess, unspecified (principal); T81.4XXA Infection following a procedure, initial encounter; K50.90 Crohn's disease, unspecified, without complications; B95.61 Methicillin susceptible Staphylococcus aureus infection as the cause of diseases classified elsewhere; Y83.1 Surgical operation with implant of artificial internal device as the cause of abnormal reaction of the patient, or of later complication, without mention of misadventure at the time of the procedure; Z98.1 Arthrodesis status; I10 Essential (primary) hypertension; N40.0 Benign prostatic hyperplasia without lower urinary tract symptoms; G47.33 Obstructive sleep apnea (adult) (pediatric); E66.9 Obesity, unspecified; Z68.39 Body mass index [BMI] 39.0-39.9, adult; Z79.2 Long term (current) use of antibiotics; Z79.899 Other long term (current) drug therapy; Z88.1 Allergy status to other antibiotic agents; Z88.2 Allergy status to sulfonamides; Z88.8 Allergy status to other drugs, medicaments and biological substances

== ENCOUNTER → 2017-11-13 | Outpatient (CLI) | payer OTHER ==
[~2017-11-13] MED LIST changes: -CARV6.252 PO; +CRG625 PO; +ERGO500011 PO; +FLM4 PO; +FOLI800T PO; +OXYC-57 PO; -TAMS0.4C38 PO
[2017-11-13 13:07] LABS: BASO % 0.3 %; BASO ABS # 0.03 K/uL (0-0.2); EOS % 2.4 %; EOS ABS # 0.23 K/uL (0-0.5); HEMATOCRIT 36.7 % (42-52); HEMOGLOBIN 11.5 g/dL (14.0-18.0); IG# 0.07 K/uL (0.00-0.02); LYMPH % 27.8 %; MEAN CORPUSCULAR HEMOGLOBIN 27.3 pg (25-34); MEAN CORPUSCULAR HGB CONC 31.3 g/dl (32-36); MEAN PLATELET VOLUME 10.1 fL (7.4-10.4); MONO % 6.9 %; MONO ABS # 0.67 K/uL (0.11-0.59); NEUT % 61.9 %; PLATELET COUNT 464 K/uL (130-400); RED CELL DISTRIBUTION WIDTH CV 16.2 % (11.5-14.5); RED CELL DISTRIBUTION WIDTH SD 51.6 fL (36.4-46.3)
[2017-11-13 13:27] LABS: ALBUMIN 2.8 gm/dl (3.4-5.0); ALT/SGPT 154 U/L (12-78); AST/SGOT 57 U/L (15-37); BLOOD UREA NITROGEN 15 mg/dl (7-18); CALCIUM 9.2 mg/dl (8.5-10.1); CARBON DIOXIDE 26 mmol/L (21-32); CREATININE 0.89 mg/dl (0.60-1.40); GLUCOSE 111 mg/dl (70-99); POTASSIUM 4.2 mmol/L (3.5-5.1); SODIUM 137 mmol/L (136-145)
[2017-11-13 13:30] LABS: ALKALINE PHOSPHATASE 83 U/L (45-117)
--- NOTE | 2017-11-22 08:24 | CODING QUERY NO DIAGNOSIS ---
Valid Physician Order Needed A valid physician order must be submitted in order to properly bill for the service(s) provided, including date of service(s), valid diagnosis, and physician signature. If these tests are done on a recurring basis the original physican order must be submitted in order to code and bill for the service(s) provided. Please fax us the original, signed physician order so that we may expedite billing to [phone] DOS 11/13/2017 * ERYTHROCYTE SEDIMENTATION RATE * CMP * CREATINE PHOSPHOKINASE * CBC W/ AUTO DIFF Thank you [facility]
== END | disposition home or self-care (01) ==
LOC: C.LABSPEC 13:37
PROVIDERS: ATTEND Orthopaedic Surgery Orthopaedic Surgery of the Spine
DX: Z01.89 Encounter for other specified special examinations (principal)

== ENCOUNTER → 2017-11-20 | Outpatient (CLI) | payer OTHER ==
[2017-11-20 13:12] LABS: BASO % 0.3 %; BASO ABS # 0.02 K/uL (0-0.2); EOS % 2.5 %; EOS ABS # 0.18 K/uL (0-0.5); HEMATOCRIT 39.6 % (42-52); HEMOGLOBIN 12.7 g/dL (14.0-18.0); IG# 0.02 K/uL (0.00-0.02); LYMPH % 28.8 %; LYMPH ABS # 2.04 K/uL (1.2-3.4); MEAN CELL VOLUME 86.1 fL (80-100); MEAN CORPUSCULAR HEMOGLOBIN 27.6 pg (25-34); MEAN CORPUSCULAR HGB CONC 32.1 g/dl (32-36); MEAN PLATELET VOLUME 10.4 fL (7.4-10.4); MONO % 7.5 %; MONO ABS # 0.53 K/uL (0.11-0.59); NEUT % 60.6 %; NEUT ABS # 4.29 K/uL (1.4-6.5); PLATELET COUNT 388 K/uL (130-400); RED CELL DISTRIBUTION WIDTH CV 16.8 % (11.5-14.5); RED CELL DISTRIBUTION WIDTH SD 52.6 fL (36.4-46.3); WHITE BLOOD COUNT 7.08 K/uL (4.8-10.8)
[2017-11-20 17:04] LABS: ALBUMIN 2.9 gm/dl (3.4-5.0); ALT/SGPT 47 U/L (12-78); AST/SGOT 25 U/L (15-37); BLOOD UREA NITROGEN 13 mg/dl (7-18); CALCIUM 9.3 mg/dl (8.5-10.1); CARBON DIOXIDE 25 mmol/L (21-32); CREATININE 0.95 mg/dl (0.60-1.40); GLUCOSE 118 mg/dl (70-99); POTASSIUM 3.8 mmol/L (3.5-5.1); SODIUM 136 mmol/L (136-145)
[2017-11-20 17:06] LABS: ALKALINE PHOSPHATASE 72 U/L (45-117); TOTAL PROTEIN 8.1 gm/dl (6.4-8.2)
--- NOTE | 2017-12-14 10:43 | CODING QUERY NO DIAGNOSIS ---
Valid Physician Order Needed A valid physician order must be submitted in order to properly bill for the service(s) provided, including date of service(s), valid diagnosis, and physician signature. If these tests are done on a recurring basis the original physican order must be submitted in order to code and bill for the service(s) provided. Please fax us the original, signed physician order so that we may expedite billing to [phone] DOS 11/20/2017 * CBC W/ AUTO DIFF * ERYTHROCYTE SEDIMENTATION RATE * CMP * CREATINE PHOSPHOKINASE Thank you [facility] Information [facility]
== END | disposition home or self-care (01) ==
LOC: C.LABSPEC 12:46
PROVIDERS: ATTEND Orthopaedic Surgery Orthopaedic Surgery of the Spine
DX: Z01.89 Encounter for other specified special examinations (principal)

== ENCOUNTER → 2017-12-11 | Outpatient (CLI) | payer OTHER ==
[2017-12-11 16:53] LABS: HEMATOCRIT 40.4 % (42-52); HEMOGLOBIN 13.2 g/dL (14.0-18.0); MEAN CELL VOLUME 86.9 fL (80-100); MEAN CORPUSCULAR HEMOGLOBIN 28.4 pg (25-34); MEAN CORPUSCULAR HGB CONC 32.7 g/dl (32-36); MEAN PLATELET VOLUME 11.2 fL (7.4-10.4); PLATELET COUNT 185 K/uL (130-400); RED CELL DISTRIBUTION WIDTH CV 18.1 % (11.5-14.5)
[2017-12-11 17:33] LABS: ALBUMIN 3.2 gm/dl (3.4-5.0); ALT/SGPT 32 U/L (12-78); AST/SGOT 22 U/L (15-37); BLOOD UREA NITROGEN 14 mg/dl (7-18); CARBON DIOXIDE 25 mmol/L (21-32); CREATININE 0.85 mg/dl (0.60-1.40); GLUCOSE 87 mg/dl (70-99); POTASSIUM 3.9 mmol/L (3.5-5.1); SODIUM 137 mmol/L (136-145)
[2017-12-11 17:36] LABS: ALKALINE PHOSPHATASE 56 U/L (45-117); TOTAL PROTEIN 7.7 gm/dl (6.4-8.2)
[2017-12-12 10:47] LABS: BASO % 0.2 %; BASO ABS # 0.01 K/uL (0-0.2); EOS % 1.6 %; IG# 0.01 K/uL (0.00-0.02); LYMPH % 29.5 %; MONO % 9.8 %; MONO ABS # 0.63 K/uL (0.11-0.59); NEUT % 58.7 %
== END | disposition home or self-care (01) ==
LOC: C.LABSPEC 10:00
PROVIDERS: ATTEND Orthopaedic Surgery Orthopaedic Surgery of the Spine
DX: A49.01 Methicillin susceptible Staphylococcus aureus infection, unspecified site (principal)

== ENCOUNTER → 2017-12-21 | Day surgery (SDC) | payer OTHER ==
[2017-12-21 15:00] VITALS: BP 133/76; PULSE 77; TEMP 37.2; O2SAT 96
== END | disposition home or self-care (01) ==
LOC: C.MTU 13:22
PROVIDERS: ATTEND Internal Medicine Infectious Disease
DX: G06.1 Intraspinal abscess and granuloma (principal)

== ENCOUNTER 2018-11-21 19:55 | Inpatient (IN) ==
[2018-11-21] MEDS ORDERED: MoRPHine SULFATE 10 MG/ML CARP/VIAL IV STA (21:44)
[2018-11-21] MEDS ORDERED: ACETAMINOPHEN 1,000 MG/100 ML VIAL IV STA (21:44)
[2018-11-21] MEDS ORDERED: ONDANSETRON INJ 2 MG/ML 2 ML VIAL IV STA (21:44)
[2018-11-21] MEDS ORDERED: KETOROLAC 30 MG/ML VIAL IV STA (21:44)
[2018-11-21] MEDS ORDERED: SODIUM CHLORIDE 0.9% 1000ML 1,000 ML IV SCH (21:45)
--- NOTE | 2018-11-21 21:50 | Emergency Department Note ---
History of Present Illness General Chief complaint: Fever Stated complaint: LOWER GRADE FEVER,FATIGUE,JOINT ACHES Time Seen by Provider: 11/21/18 21:33 History of Present Illness Maximum Pain Intensity: 6 This is a 63-year-old male presenting to the emergency department for evaluation of fever and chills over the course of the past 12 hours. The patient states that his symptoms started spontaneously this morning while at work. He began having full body aches and had to wear his coat inside of his office to keep warm. The patient got home tonight and was noted to have a fever of over 101 F. He did take Tylenol earlier which has somewhat improved his symptoms. The patient does not have sinus congestion, ear pain, sore throat or chest discomfort. He has a history of back surgery with infection that required surgical washout and several months of antibiotics. The patient's looked in the patient's low back, and noted a red area just above the gluteal cleft. She did netta this with a pen. The patient states that he has discomfort in his right side groin as well as his right knee, however he seems to have these symptoms when he does become ill. The patient is on Humira for Crohn's disease. He rates his discomfort a 6/10, diffuse, and nonradiating. Home Medications Home Medications Medication Instructions Recorded Confirmed Type carvedilol [Coreg] 6.25 mg PO BID 07/17/18 11/22/18 History cholecalciferol (vitamin D3) 5,000 unit PO DAILY 07/17/18 11/22/18 History [Vitamin D3] dicyclomine 10 mg PO TID PRN 07/17/18 11/22/18 History diphenoxylate-atropine 1 tab PO QID PRN 07/17/18 11/22/18 History folic acid 0.8 mg PO QAM 07/17/18 11/22/18 History multivitamin [Multiple Vitamins] 1 tab PO DAILY 07/17/18 11/22/18 History omega 1-kco-vdi-fish oil [Fish Oil] 1 tab PO DAILY 07/17/18 11/22/18 History tamsulosin 0.4 mg PO QAM 07/17/18 11/22/18 History adalimumab [Humira Pen] 40 mg SUBCUT WK 11/22/18 11/22/18 History Allergies Allergy/AdvReac Type Severity Reaction Status Date / Time cefdinir Allergy Intermediate Rash Verified 11/22/18 02:02 sodium benzoate Allergy Intermediate Rash Verified 11/22/18 02:02 Sulfa (Sulfonamide Allergy Intermediate RASH Verified 11/22/18 02:02 Antibiotics) Past Med/Surg History Medical History Arthritis Crohns disease STABLE Hypertension IBS (irritable bowel syndrome) Morbid obesity Sleep apnea BIPAP Social History Preferred Language: Korean Communication Ability: Effective Beliefs That Will Affect Care: Druze Current Living Situation: Spouse Other Information That Helps Us Care for You: No Feels Safe at Home: Yes Safety Concerns: Feels Safe At This Time Smoking Status: Never smoker Hx Alcohol Use: No Hx Substance Use: No Review of Systems A total of 10 systems reviewed and were otherwise negative Physical Exam Vital Signs Vital Signs - 24 hr 11/21/18 19:56 11/21/18 22:20 11/22/18 01:11 Temperature 37.4 C Temperature Source Oral Sepsis Recent Fever Within 48 Hours Yes Sepsis New/Unexplained Change in Mental Status No Sepsis Action Taken by Nursing No Action Required Pulse Rate 77 Pulse Rate [Finger] 77 69 Pulse Rhythm [Finger] Pulse Strength [Finger] Respiratory Rate 20 20 18 Respiratory Effort / Characteristics Non-Labored Spontaneous Respiratory Depth Normal Respiratory Pattern Blood Pressure 123/73 Blood Pressure [Right Arm] 115/69 110/78 Blood Pressure Mean 89 Blood Pressure Mean [Right Arm] 84 88 Blood Pressure Position Sitting Blood Pressure Position [Right Arm] Pulse Oximetry 96 94 98 Oxygen Delivery Method Room Air Room Air Room Air 11/22/18 02:06 11/22/18 02:10 11/22/18 07:25 Temperature 36.6 C 36.4 C L Temperature Source Oral Oral Sepsis Recent Fever Within 48 Hours Sepsis New/Unexplained Change in Mental Status Sepsis Action Taken by Nursing Pulse Rate Pulse Rate [Finger] 66 60 71 Pulse Rhythm [Finger] Regular Pulse Strength [Finger] Normal Respiratory Rate 18 16 18 Respiratory Effort / Characteristics Non-Labored Spontaneous Non-Labored Respiratory Depth Normal Normal Respiratory Pattern Regular Blood Pressure Blood Pressure [Right Arm] 109/72 124/77 120/77 Blood Pressure Mean Blood Pressure Mean [Right Arm] 84 92 91 Blood Pressure Position Blood Pressure Position [Right Arm] Sitting Pulse Oximetry 96 96 95 Oxygen Delivery Method Room Air Room Air VITALS: Vitals are noted on the nurse's note and reviewed by myself. Vital signs stable. GENERAL: Well-developed, well-nourished, white male, who is moderately uncomfortable. He has difficulty moving in the bed secondary to reported discomfort in his back. HEAD: Normocephalic atraumatic. EYES: Pupils equal round and reactive to light and accommodation. Conjunctivae without injection, sclerae without icterus. Extraocular movements intact. NOSE: Patent, turbinates without inflammation or discharge. NECK: Supple without nuchal rigidity. No lymphadenopathy. No thyromegaly. Cervical spine is nontender. HEART: Regular rate and rhythm without murmurs gallops or rubs. LUNGS: Clear to auscultation bilaterally without wheezes, rales or rhonchi. No retractions or accessory muscle use. ABDOMEN: Positive normal bowel sounds x 4. Soft, nontender, without masses or organomegaly. No guarding or rebound tenderness. BACK: Vertical surgical incision is appreciated in the spine. Inferior to the incision and superior to the gluteal cleft is an area of erythema and induration measuring approximately 5 x 4 cm in size just left of midline. This area is tender on palpation without obvious fluctuance. MUSCULOSKELETAL: No muscle atrophy, erythema, or edema noted. Full range of motion in all extremities. NEURO: Patient was alert and oriented to person place and time. CN II through XII grossly intact. No focal neurological deficits. Deep tendon reflexes 2+ throughout. SKIN: The skin was without additional rashes, erythema, edema, or bruising. Capillary refill less than 2 seconds. Course Administered Medications Gadobutrol (Gadavist 65ml) 12 ml IV ONCE PRN PRN Reason: Interaction Checking Stop: 11/25/18 23:36 Last Admin: 11/21/18 23:13 Dose: 12 ml Documented by: [id number] Lactated Ringer's (Lr) 1,000 mls @ 125 mls/hr IV .Q8H AC Stop: 11/22/18 09:59 Last Admin: 11/22/18 03:22 Dose: 125 mls/hr Documented by: [id number] Vancomycin HCl 1,750 mg/ (Sodium Chloride) 535 mls @ 200 mls/hr IV Q12H AC; Protocol Stop: 12/02/18 05:59 Last Admin: 11/22/18 05:21 Dose: 200 mls/hr Documented by: [id number] Zolpidem Tartrate (Ambien) 5 mg PO HS PRN PRN Reason: Sleep Stop: 12/22/18 01:35 Last Admin: 11/22/18 03:29 Dose: 5 mg Documented by: [id number] Discontinued Medications Acetaminophen (Ofirmev) 1,000 mg in 100 mls @ 400 mls/hr IV NOW STA Stop: 11/21/18 21:58 Last Infusion: 11/21/18 22:32 Dose: 0 mls/hr Documented by: [id number] Admin: 11/21/18 22:11 Dose: 400 mls/hr Documented by: [id number] Sodium Chloride (Nss 1000ml) 1,000 mls @ 999 mls/hr IV .Q1H1M AC Stop: 11/21/18 22:45 Last Infusion: 11/21/18 23:16 Dose: 0 mls/hr Documented by: [id number] Admin: 11/21/18 22:12 Dose: 999 mls/hr Documented by: [id number] Vancomycin HCl (Vancomycin Hcl) 1,000 mg in 270 mls @ 125 mls/hr IV NOW STA Stop: 11/22/18 01:22 Last Infusion: 11/22/18 05:18 Dose: 0 mls/hr Documented by: [id number] Admin: 11/22/18 01:50 Dose: 125 mls/hr Documented by: [id number] Aztreonam 2,000 mg/ Dextrose 120 mls @ 100 mls/hr IV NOW STA Stop: 11/22/18 00:34 Last Infusion: 11/22/18 01:51 Dose: 0 mls/hr Documented by: [id number] Admin: 11/22/18 00:46 Dose: 100 mls/hr Documented by: [id number] Sodium Chloride (Nss 1000ml) 1,000 mls @ 999 mls/hr IV .Q1H1M AC Stop: 11/22/18 02:30 Last Infusion: 11/22/18 03:22 Dose: 0 mls/hr Documented by: [id number] Admin: 11/22/18 01:50 Dose: 999 mls/hr Documented by: [id number] Magnesium Sulfate/Dextrose (Magnesium Sulfate / D5w) 1 gm in 100 mls @ 100 mls/hr IV ONE ONE Stop: 11/22/18 02:54 Last Infusion: 11/22/18 04:44 Dose: 0 mls/hr Documented by: [id number] Admin: 11/22/18 03:37 Dose: 100 mls/hr Documented by: [id number] Ketorolac Tromethamine (Toradol) 30 mg IV NOW STA Stop: 11/21/18 21:45 Last Admin: 11/21/18 22:12 Dose: 30 mg Documented by: [id number] Miscellaneous Information (Consult) 1 ea N/A UD PRN PRN Reason: Consult Stop: 12/21/18 23:12 Last Admin: 11/22/18 00:46 Dose: 1 ea Documented by: [id number] Morphine Sulfate (Morphine Sulfate) 8 mg IV NOW STA Stop: 11/21/18 21:45 Last Admin: 11/21/18 22:11 Dose: 8 mg Documented by: [id number] Ondansetron HCl (Zofran) 4 mg IV NOW STA Stop: 11/21/18 21:45 Last Admin: 11/21/18 22:12 Dose: 4 mg Documented by: [id number] Potassium Chloride (Klor-Con M20) 20 meq PO NOW STA Stop: 11/22/18 01:56 Last Admin: 11/22/18 03:37 Dose: 20 meq Documented by: [id number] Medical Decision Making Differential Diagnosis Differential diagnosis includes: Etiologies such as sepsis, spinal abscess, cellulitis, abscess, osteomyelitis, MRSA infection, DVT, necrotizing fasciitis, dermatitis, drug eruption, as well as others were entertained Laboratory Data Result diagrams: 11/21/18 22:12 11/21/18 22:12 Lab Results 11/21/18 11/21/18 11/21/18 Range/Units 22:10 22:12 22:12 WBC 9.42 (4.8-10.8) K/uL RBC 4.61 L (4.7-6.1) M/uL Hgb 14.2 (14.0-18.0) g/dL Hct 42.0 (42-52) % MCV 91.1 (80-100) fL MCH 30.8 (25-34) pg MCHC 33.8 (32-36) g/dL RDW Std Deviation 46.4 H (36.4-46.3) fL RDW Coeff of Kd 13.9 (11.5-14.5) % Plt Count 173 (130-400) K/uL MPV 11.3 H (7.4-10.4) fL Immature Gran % (Auto) 0.1 % Neut % (Auto) 68.8 % Lymph % (Auto) 22.4 % [place] % (Auto) 8.5 % Eos % (Auto) 0.1 % Baso % (Auto) 0.1 % Immature Gran # (Auto) 0.01 (0.00-0.02) K/uL Neut # (Auto) 6.48 (1.4-6.5) K/uL Lymph # (Auto) 2.11 (1.2-3.4) K/uL [place] # (Auto) 0.80 H (0.11-0.59) K/uL Eos # (Auto) 0.01 (0-0.5) K/uL Baso # (Auto) 0.01 (0-0.2) K/uL ESR 13 (0-14) mm/hr PT 10.4 (9.0-12.0) Seconds INR 1.0 (0.9-1.1) APTT 23.9 (21.0-31.0) Seconds PTT Ratio 0.9 Sodium (136-145) mmol/L Potassium (3.5-5.1) mmol/L Chloride (98-107) mmol/L Carbon Dioxide (21-32) mmol/L Anion Gap (3-11) BUN (7-18) mg/dl Creatinine (0.6-1.4) mg/dl Est Cr Clr Drug Dosing ml/min Est GFR ( Amer) Est GFR (Non-Af Amer) BUN/Creatinine Ratio (10-20) Glucose (70-99) mg/dl Lactate (0.4-2.0) mmol/L Calcium (8.5-10.1) mg/dl Total Bilirubin (0.2-1) mg/dl AST (15-37) U/L ALT (12-78) U/L Alkaline Phosphatase (45-117) U/L C-Reactive Protein (0-0.29) mg/dl Total Protein (6.4-8.2) gm/dl Albumin (3.4-5.0) gm/dl Globulin (2.5-4.0) gm/dl Albumin/Globulin Ratio (0.9-2) Lipase (73-393) U/L Urine Color Urine Appearance (Clear) Urine pH (4.5-7.5) Ur Specific [place] (1.000-1.030) Urine Protein (Negative) Urine Glucose (UA) (Negative) Urine Ketones (Negative) Urine Blood (Negative) Urine Nitrite (Negative) Urine Bilirubin (Negative) Urine Urobilinogen (Negative) Ur Leukocyte Esterase (Negative) Influenza Type A Ag (Neg) Influenza Type B Ag (Neg) 11/21/18 11/21/18 11/21/18 Range/Units 22:12 22:12 22:20 WBC (4.8-10.8) K/uL RBC (4.7-6.1) M/uL Hgb (14.0-18.0) g/dL Hct (42-52) % MCV (80-100) fL MCH (25-34) pg MCHC (32-36) g/dL RDW Std Deviation (36.4-46.3) fL RDW Coeff of Kd (11.5-14.5) % Plt Count (130-400) K/uL MPV (7.4-10.4) fL Immature Gran % (Auto) % Neut % (Auto) % Lymph % (Auto) % [place] % (Auto) % Eos % (Auto) % Baso % (Auto) % Immature Gran # (Auto) (0.00-0.02) K/uL Neut # (Auto) (1.4-6.5) K/uL Lymph # (Auto) (1.2-3.4) K/uL [place] # (Auto) (0.11-0.59) K/uL Eos # (Auto) (0-0.5) K/uL Baso # (Auto) (0-0.2) K/uL ESR (0-14) mm/hr PT (9.0-12.0) Seconds INR (0.9-1.1) APTT (21.0-31.0) Seconds PTT Ratio Sodium 138 (136-145) mmol/L Potassium 3.4 L (3.5-5.1) mmol/L Chloride 105 (98-107) mmol/L Carbon Dioxide 28 (21-32) mmol/L Anion Gap 5.0 (3-11) BUN 15 (7-18) mg/dl Creatinine 1.09 (0.6-1.4) mg/dl Est Cr Clr Drug Dosing 91.2 ml/min Est GFR ( Amer) 83.3 Est GFR (Non-Af Amer) 71.9 BUN/Creatinine Ratio 13.9 (10-20) Glucose 146 H (70-99) mg/dl Lactate 3.4 H* (0.4-2.0) mmol/L Calcium 8.9 (8.5-10.1) mg/dl Total Bilirubin 1.8 H (0.2-1) mg/dl AST 16 (15-37) U/L ALT 33 (12-78) U/L Alkaline Phosphatase 45 (45-117) U/L C-Reactive Protein 4.03 H (0-0.29) mg/dl Total Protein 6.9 (6.4-8.2) gm/dl Albumin 3.2 L (3.4-5.0) gm/dl Globulin 3.7 (2.5-4.0) gm/dl Albumin/Globulin Ratio 0.9 (0.9-2) Lipase 72 L (73-393) U/L Urine Color Dark Yellow Urine Appearance Clear (Clear) Urine pH 5.0 (4.5-7.5) Ur Specific [place] 1.033 H (1.000-1.030) Urine Protein Negative (Negative) Urine Glucose (UA) Negative (Negative) Urine Ketones Trace H (Negative) Urine Blood Negative (Negative) Urine Nitrite Negative (Negative) Urine Bilirubin Negative (Negative) Urine Urobilinogen Negative (Negative) Ur Leukocyte Esterase Negative (Negative) Influenza Type A Ag (Neg) Influenza Type B Ag (Neg) 11/21/18 Range/Units 22:20 WBC (4.8-10.8) K/uL RBC (4.7-6.1) M/uL Hgb (14.0-18.0) g/dL Hct (42-52) % MCV (80-100) fL MCH (25-34) pg MCHC (32-36) g/dL RDW Std Deviation (36.4-46.3) fL RDW Coeff of Kd (11.5-14.5) % Plt Count (130-400) K/uL MPV (7.4-10.4) fL Immature Gran % (Auto) % Neut % (Auto) % Lymph % (Auto) % [place] % (Auto) % Eos % (Auto) % Baso % (Auto) % Immature Gran # (Auto) (0.00-0.02) K/uL Neut # (Auto) (1.4-6.5) K/uL Lymph # (Auto) (1.2-3.4) K/uL [place] # (Auto) (0.11-0.59) K/uL Eos # (Auto) (0-0.5) K/uL Baso # (Auto) (0-0.2) K/uL ESR (0-14) mm/hr PT (9.0-12.0) Seconds INR (0.9-1.1) APTT (21.0-31.0) Seconds PTT Ratio Sodium (136-145) mmol/L Potassium (3.5-5.1) mmol/L Chloride (98-107) mmol/L Carbon Dioxide (21-32) mmol/L Anion Gap (3-11) BUN (7-18) mg/dl Creatinine (0.6-1.4) mg/dl Est Cr Clr Drug Dosing ml/min Est GFR ( Amer) Est GFR (Non-Af Amer) BUN/Creatinine Ratio (10-20) Glucose (70-99) mg/dl Lactate (0.4-2.0) mmol/L Calcium (8.5-10.1) mg/dl Total Bilirubin (0.2-1) mg/dl AST (15-37) U/L ALT (12-78) U/L Alkaline Phosphatase (45-117) U/L C-Reactive Protein (0-0.29) mg/dl Total Protein (6.4-8.2) gm/dl Albumin (3.4-5.0) gm/dl Globulin (2.5-4.0) gm/dl Albumin/Globulin Ratio (0.9-2) Lipase (73-393) U/L Urine Color Urine Appearance (Clear) Urine pH (4.5-7.5) Ur Specific [place] (1.000-1.030) Urine Protein (Negative) Urine Glucose (UA) (Negative) Urine Ketones (Negative) Urine Blood (Negative) Urine Nitrite (Negative) Urine Bilirubin (Negative) Urine Urobilinogen (Negative) Ur Leukocyte Esterase (Negative) Influenza Type A Ag Neg for Influ A (Neg) Influenza Type B Ag Neg for Influ B (Neg) Imaging Data Radiologist's Impression: MR lumbar spine wo/w con CLINICAL HISTORY: Low back pain. Low-grade fever. History of prior abscess. TECHNIQUE: Sagittal and axial T1, T2 and STIR images were obtained. Images were acquired before and after the administration of 12 cc of intravenous Gadavist. COMPARISON STUDY: November 06, 2017 OBSERVATIONS: The vertebral bodies and posterior elements appear intact. There is no abnormal bony signal present to suggest a marrow replacement process. [employer] images reveal a presumed 6 cm right renal cyst. Degenerative endplate signal changes are present at the L4-5 level. L1-2: No disc protrusions or extrusions. No evidence of spinal canal or neural foraminal compromise. L2-3: There is minimal retrolisthesis of L2 on L3. There is a circumferential disc bulge. There is moderate spinal stenosis. There is mild bilateral foraminal narrowing L3-4: No disc protrusions or extrusions. No evidence of spinal canal or neural foraminal compromise. Postlaminectomy changes are evident. L4-5: There is a grade 1 spinal listhesis of L4 and L5. There are postsurgical changes of a discectomy and interbody fusion. There is mild spinal stenosis. There is mild bilateral foraminal narrowing. L5-S1: There is a circumferential disc bulge. Postlaminectomy changes are visualized. There is no significant spinal stenosis. There is minor bilateral foraminal narrowing. The conus medullaris and cauda equina appear normal. Within the posterior soft tissues, there is a septated fluid collection measuring 6 x 5.6 x 1.7 cm. This demonstrates rim enhancement. There is mild increased T2 signal within the surrounding paraspinal muscles. The fluid collection is significantly smaller than on the preceding study. IMPRESSION: 1. Multilevel spondylitic changes with moderate spinal stenosis the L2-3 level. 2. Postsurgical changes of a prior laminectomies and discectomy with interbody fusion at the L 4-5 level 3. Interval removal of the posterior spinal hardware 4. No evidence of discitis or osteomyelitis 5. Rim-enhancing septated fluid collection within the posterior paravertebral soft tissues measuring 6 x 5.6 x 1.7 cm. There is T2 edema within the surrounding musculature, and post gadolinium enhancement. The findings suggest an inflammatory process. Given the rim enhancement of the fluid collection, an abscess must be considered. MDM Narrative Physical exam and history were performed. Nursing notes, EMR, and Medication List were personally reviewed. Patient appears to have nonspecific fever for the past 24 hours. On examination he does have an area concerning for cellulitis in his low back just inferior to a previous surgical incision line. He is considered immunocompromised as he is on Humira for Crohn's disease. IV access was established and labs were obtained. The patient was hydrated with normal saline. He was given IV Toradol, IV Tylenol, IV morphine, and IV Zofran. Blood cultures were gathered x2. Due to his history and concerning past history I did elect to perform an MRI of the L-spine with contrast to further evaluate for infection. The patient blood work is as above and was reviewed. He does not have a significantly elevated white blood cell count, gross anemia, bandemia, or significant electrolyte imbalance. Lipase and transaminase are not diagnostic. Sed rate is normal, however CRP is markedly elevated at over 4. Lactic acid is elevated at 3.4. INR is 1.0. Blood cultures are pending. He was started on vancomycin and aztreonam. He was given additional fluids. The patient's MRI is as above and was reviewed by radiology, myself, and my attending physician. The MRI is highly concerning for abscess with additional cellulitis. Clinically this does correlate with the patient's symptoms and past history. The patient has previously followed with Dr. Briggs, and I did speak with Hadley SIBLEY of the [facility]. Recommendation was for admission overnight, and they will follow with the patient first thing in the morning. The case was discussed with the on-call hospitalist, Dr Ferro, who agreed to evaluate the patient here in the department. Please see their dictation for further patient course, plan, and disposition. The chart was completed utilizing [employer] Speech Voice Recognition Software. Grammatical errors, random word insertions, pronoun errors, and incomplete sentences are an occasional consequence of this system due to software limitations, ambient noise, and hardware issues. Any formal questions or concerns about the content, text, or information contained within the body of this dictation should be directly addressed to the provider for clarification. . Impression & Plan Spinal abscess, Sepsis Discharge Plan Visit Data *Final* Discharge Date/Time: 11/22/18 02:03 Chief Complaint: Fever Stated Complaint: LOWER GRADE FEVER,FATIGUE,JOINT ACHES ED Provider: Tavo Milian ED Midlevel Provider: Prakash Figueroa Discharge Problem: Spinal abscess, Sepsis Patient Disposition: Admitted As Inpatient Discharge Instructions Interventions: ED Discharge Assessment Last Done: 11/22/18 02:03 Discharge Problem: Sepsis Qualifiers: Sepsis type: sepsis due to unspecified organism Qualified Code(s): A41.9 - Sepsis, unspecified organism
[2018-11-21 22:25] LABS: Basophils # (auto) 0.01 K/uL (0-0.2); Basophils % (auto) 0.1 %; Eosinophils # (auto) 0.01 K/uL (0-0.5); Eosinophils % (auto) 0.1 %; Hemoglobin 14.2 g/dL (14.0-18.0); Immature Granulocytes # (auto) 0.01 K/uL (0.00-0.02); Immature Granulocytes % (auto) 0.1 %; Lymphocytes # (auto) 2.11 K/uL (1.2-3.4); Lymphocytes % (auto) 22.4 %; Mean Corpuscular Hgb Conc 33.8 g/dL (32-36); Mean Corpuscular Volume 91.1 fL (80-100); Mean Platelet Volume 11.3 fL (7.4-10.4); Monocytes % (auto) 8.5 %; Neutrophils # (auto) 6.48 K/uL (1.4-6.5); Neutrophils % (auto) 68.8 %; Platelet Count 173 K/uL (130-400); RDW Coefficient of Variation 13.9 % (11.5-14.5); RDW Standard Deviation 46.4 fL (36.4-46.3); Red Blood Count 4.61 M/uL (4.7-6.1); White Blood Count 9.42 K/uL (4.8-10.8)
[2018-11-21 22:36] LABS: Appearance Urine Clear (Clear); Bilirubin Urine Negative (Negative); Blood Urine Negative (Negative); Color Urine Dark Yellow; Glucose Urine UA Negative (Negative); Ketones Urine Trace (Negative); Leukocyte Esterase Urine Negative (Negative); Nitrite Urine Negative (Negative); Protein Urine Negative (Negative); Specific Gravity Urine 1.033 (1.000-1.030); Urobilinogen Urine Negative (Negative)
[2018-11-21 22:38] LABS: Partial Thromboplastin Ratio 0.9; Partial Thromboplastin Time 23.9 Seconds (21.0-31.0); Prothrombin Time 10.4 Seconds (9.0-12.0)
[2018-11-21 22:41] LABS: Albumin Level 3.2 gm/dl (3.4-5.0); BUN Creatinine Ratio 13.9 (10-20); C Reactive Protein 4.03 mg/dl (0-0.29); Calcium 8.9 mg/dl (8.5-10.1); Creatinine Clr Calc Pharmacy 91.2 ml/min; Est GFR (African American) 83.3; Est GFR (Non-African American) 71.9; Potassium 3.4 mmol/L (3.5-5.1)
[2018-11-21 22:44] LABS: Albumin Globulin Ratio 0.9 (0.9-2); Bilirubin,Total 1.8 mg/dl (0.2-1); Globulin 3.7 gm/dl (2.5-4.0); Total Protein 6.9 gm/dl (6.4-8.2)
[2018-11-21] MEDS ORDERED: VANCOMYCIN HCL 1,000 MG/270 ML BAG IV STA (23:13)
[2018-11-21] MEDS ORDERED: VANCOMYCIN CONSULT ACTIVE PRN (23:13)
[2018-11-21] MEDS ORDERED: AZTREONAM 2,000 MG in DEXTROSE 5% 100 ML IV STA (23:23)
[2018-11-21] MEDS ORDERED: GADOBUTROL 65ML VIAL IV PRN (23:37)
[2018-11-22] MEDS ORDERED: SODIUM CHLORIDE 0.9% 1000ML 1,000 ML IV SCH (01:30)
[2018-11-22] MEDS ORDERED: ZOLPIDEM TARTRATE 5 MG TAB PO PRN (01:36)
[2018-11-22] MEDS ORDERED: ONDANSETRON INJ 2 MG/ML 2 ML VIAL IV PRN ×3 (01:41→19:10)
[2018-11-22] MEDS ORDERED: POLYETHYLENE (MIRALAX) 17 GM PACK PO PRN (01:41)
[2018-11-22] MEDS ORDERED: ALUMINUM/MAGNESIUM SUSP 30 ML UDC PO PRN (01:41)
[2018-11-22] MEDS ORDERED: MAGNESIUM HYDROXIDE SUSP 30 ML UDC PO PRN (01:41)
[2018-11-22] MEDS ORDERED: ACETAMINOPHEN 325 MG TAB PO PRN (01:41)
[2018-11-22] MEDS ORDERED: VANCOMYCIN CONSULT ACTIVE PRN (01:52)
[2018-11-22] MEDS ORDERED: POTASSIUM CHLORIDE 20 MEQ TABCR PO STA (01:55)
[2018-11-22] MEDS ORDERED: MAGNESIUM SULFATE / D5W 1 GM/100 ML BAG IV ONE (01:55)
[2018-11-22] MEDS ORDERED: LACTATED RINGER'S 1,000 ML IV SCH ×2 (02:00→12:45)
--- NOTE | 2018-11-22 02:11 | History & Physical Report ---
Date of Service November 22, 2018 Assessment & Plan (1) Spinal abscess: 63 y/o M Hx HTN, Crohns, lumbar fusion 2016, lumbar abscess 10/2017. Presenting with lower back pain, fevers and chills. Considering the pt's history, he was sent for an MRI of the lumbar spine after presenting to the ER. This demonstrated a paravertebral abscess at L3-5. The pt is admitted for IV antibiotics and evaluation by the orthopedic service as he will likely require debridement. 1) Abscess - placed on broad spectrum antibiotics due to prior history and immunocompromise owing to Humira use 2) HTN - cont Coreg 3) Crohns - Humira should be held until the abscess has resolved Full code - SCDs - total time for this admit including review of labs, meds, imaging, records - discussion with pt and ER attending - 39 min Present on Admission?: Yes History of Present Illness Chief Complaint: Back pain Primary Care Provider: Chantale Morales, 63 y/o M Hx HTN, Crohns, lumbar fusion 2016, lumbar abscess 10/2017. Presenting with lower back pain, fevers and chills. Considering the pt's history, he was sent for an MRI of the lumbar spine after presenting to the ER. This demonstrated a paravertebral abscess at L3-5. The pt is admitted for IV antibiotics and evaluation by the orthopedic service as he will likely require debridement. PMH: 1) Crohns - treated with Humira 2) HTN 3) Lumbar stenosis 4) Lumbar abscess Surgical: 1) TKA 2) [facility] 3) Spermatocele surgery 4) Lumbar fusion Social: Does not drink or smoke Family: Noncontributory to current complaint Allergies Allergy/AdvReac Type Severity Reaction Status Date / Time cefdinir Allergy Intermediate Rash Verified 11/22/18 02:02 sodium benzoate Allergy Intermediate Rash Verified 11/22/18 02:02 Sulfa (Sulfonamide Allergy Intermediate RASH Verified 11/22/18 02:02 Antibiotics) Home Medications Home Medications Medication Instructions Recorded Confirmed Type carvedilol [Coreg] 6.25 mg PO BID 07/17/18 11/22/18 History cholecalciferol (vitamin D3) 5,000 unit PO DAILY 07/17/18 11/22/18 History [Vitamin D3] dicyclomine 1 tab PO UD PRN 07/17/18 07/17/18 History diphenoxylate-atropine 1 tab PO QID PRN 07/17/18 07/17/18 History folic acid 0.8 mg PO QAM 07/17/18 08/06/18 History multivitamin [Multiple Vitamins] 1 tab PO DAILY 07/17/18 11/22/18 History omega 4-ubs-bbh-fish oil [Fish Oil] 1 tab PO DAILY 07/17/18 11/22/18 History tamsulosin 0.4 mg PO QAM 07/17/18 08/06/18 History adalimumab [Humira Pen] 40 mg SUBCUT WK 11/22/18 11/22/18 History Past Med/Surg History Medical History Arthritis Crohns disease STABLE Hypertension IBS (irritable bowel syndrome) Morbid obesity Sleep apnea BIPAP Social History Preferred Language: Barbadian Communication Ability: Effective Beliefs That Will Affect Care: None Current Living Situation: Family Feels Safe at Home: Yes Smoking Status: Never smoker Hx Alcohol Use: Yes Hx Substance Use: No Review of Systems Gen: Fevers and chills x 1 day ENT: Denies congestion, throat pain, hearing loss Eyes: Denies acute visual changes CV: Denies CP, palpitations Pulmonary: Denies SOB, cough, wheezing GI: Denies N/V, diarrhea, constipation Neuro: Denies acute or unilateral weakness, acute gait impairment, headache or acute visual changes Musculoskeletal: Lower back pain Endocrine: Denies polydipsia, polyuria Physical Exam Vital Signs (Past 24 Hours): Last Vital Signs Temp 37.4 C 11/21/18 19:56 Pulse 69 11/22/18 01:11 Resp 18 11/22/18 01:11 BP 110/78 11/22/18 01:11 Pulse Ox 98 11/22/18 01:11 Physical Exam: General: AAO x 3, no distress ENT: No erythema or exudates, no thrush Eyes: [place], EOMI Head and neck: Normocephalic, atraumatic, No JVD, neck is supple. Chest/heart: Nontender, S1,2, RRR, no murmurs, no gallops Lungs: CTAB, no wheezing or crackles Abdomen: Nontender, nondistended, BS+ Neuro: AAO x 3, speech is clear, no unilateral weakness or loss of sensation, coordination intact Musculoskeletal: Lower back is tender to palpation Skin: There is cellulitis overlying the lower back at the site of prior surgery Extremities: No clubbing, cyanosis, edema
[2018-11-22] MEDS ORDERED: OXYCODONE/ACETAMINOPHEN 10-325 TAB PO PRN (02:40)
[2018-11-22] MEDS ORDERED: MoRPHine SULFATE 4 MG/ML 1 ML CARP\\VIAL IV PRN (02:40)
[2018-11-22] MEDS: VANCOMYCIN HCL 1,750 MG in SODIUM CHLORIDE 0.9% 500 ML IV SCH ×2 (05:21→22:39)
--- NOTE | 2018-11-22 07:17 | Magnetic Resonance Report ---
MR lumbar spine wo/w con CLINICAL HISTORY: Low back pain. Low-grade fever. History of prior abscess. TECHNIQUE: Sagittal and axial T1, T2 and STIR images were obtained. Images were acquired before and a fter the administration of 12 cc of intravenous Gadavist. COMPARISON STUDY: November 06, 2017 OBSERVATIONS: The vertebral bodies and posterior elements appear intact. There is no abnormal bony signal present t o suggest a marrow replacement process. Artificial Flower Maker images reveal a presumed 6 cm right renal cyst. Degener ative endplate signal changes are present at the L4-5 level. L1-2: No disc protrusions or extrusions. No evidence of spinal canal or neural foraminal compromise. L2-3: There is minimal retrolisthesis of L2 on L3. There is a circumferential disc bulge. There is mo derate spinal stenosis. There is mild bilateral foraminal narrowing L3-4: No disc protrusions or extrusions. No evidence of spinal canal or neural foraminal compromise. Postlaminectomy changes are evident. L4-5: There is a grade 1 spinal listhesis of L4 and L5. There are postsurgical changes of a discectom y and interbody fusion. There is mild spinal stenosis. There is mild bilateral foraminal narrowing. L5-S1: There is a circumferential disc bulge. Postlaminectomy changes are visualized. There is no sig nificant spinal stenosis. There is minor bilateral foraminal narrowing. The conus medullaris and cauda equina appear normal. Within the posterior soft tissues, there is a septated fluid collection measuring 6 x 5.6 x 1.7 cm. T his demonstrates rim enhancement. There is mild increased T2 signal within the surrounding paraspinal muscles. The fluid collection is significantly smaller than on the preceding study. IMPRESSION: 1. Multilevel spondylitic changes with moderate spinal stenosis the L2-3 level. 2. Postsurgical changes of a prior laminectomies and discectomy with interbody fusion at the L 4-5 le mo 3. Interval removal of the posterior spinal hardware 4. No evidence of discitis or osteomyelitis 5. Rim-enhancing septated fluid collection within the posterior paravertebral soft tissues measuring 6 x 5.6 x 1.7 cm. There is T2 edema within the surrounding musculature, and post gadolinium enhanceme nt. The findings suggest an inflammatory process. Given the rim enhancement of the fluid collection, an abscess must be considered. Electronically signed by: Naif Alarcon M.D. 11/22/2018 7:15 AM
[2018-11-22] MEDS: TAMSULOSIN HCL 0.4 MG CAP PO SCH (07:45)
[2018-11-22] MEDS: CARVEDILOL 6.25 MG TAB PO SCH ×2 (07:45→20:49)
[2018-11-22] MEDS: AZTREONAM 2,000 MG in DEXTROSE 5% 100 ML IV SCH ×2 (07:45→21:12)
--- NOTE | 2018-11-22 09:43 | Pharmacy Report ---
Pharmacy Abx Initial Consult - Date of Service November 22, 2018 - Pharmacy Dosing Scope Date of Consult: 11/22/18 Consultation requested by: Dr. Ferro Pharmacy is consulted to initiate Vancomycin IV dosing therapy, order appropriate labs and adjust drug dose/frequency. - Subjective The patient is a 63 year old M admitted on 11/22/18 01:38 with spinal abscess. PMH HTN, Crohns, lumbar fusion 2015, lumbar abscess 10/2017. Presenting with lower back pain, fevers and chills. MRI of the lumbar spine demonstrated a paravertebral abscess at L3-5. Pt admitted for IV antibiotics and evaluation by the orthopedic service as he will likely require debridement. - Objective Height: 5 ft 10 in Weight: 122.3 kg Vital Signs (Past 12hrs): Vital Signs Temp Pulse Resp BP Pulse Ox 11/22/18 07:25 36.4 C L 71 18 120/77 95 11/22/18 02:10 36.6 C 60 16 124/77 96 11/22/18 02:06 66 18 109/72 96 11/22/18 01:11 69 18 110/78 98 11/21/18 22:20 77 20 115/69 94 Lab Results (24hrs): Laboratory Tests (24 Hours) 11/21/18 11/21/18 11/21/18 22:12 22:12 22:10 WBC 9.42 Neut # (Auto) 6.48 ESR 13 Creatinine 1.09 Est Cr Clr Drug Dosing 91.2 C-Reactive Protein 4.03 H Micro Results: 11/21/18 22:35 Blood Culture - Pending Blood 11/21/18 22:12 Blood Culture - Pending Blood - Risk Factors for Resistance * Immunocompromised (Humiria for Crohns) - Assessment & Plan Assessment 63 year old M admitted with Spinal abscess. Awaiting evaluation by the orthopedic service. Starting IV Vancomycin. Plan IV Vancomcyin for treatment of spinal abscess Vancomycin IV * Estimated PK Parameters: Vd 0.6 L/kg, Isai 0.080 hr-1, t1/2 8.7hr * Loading dose: 1000 mg (8 mg/kg) * Maintenance dose: 1750 mg IV ( 14 mg/kg) every 12 hours - started right after 1000mg dose in ED, to make loading dose. * Goal trough level for spinal abscess : 15 to 20 mcg/mL * Trough level ordered for 11/24/18 prior to 0600 dose Pharmacy will continue to follow and will adjust dose/frequency as necessary. Thank you.
--- NOTE | 2018-11-22 15:47 | Anesthesiology Consultation ---
Date of Service November 22, 2018 Assessment & Plan (1) Encounter for pre-operative examination: Chart Review Chart Review: Acceptable Risk for Surgery Consults Requested none ASA ASA3 Proposed Anesthesia Anesthesia Type: General Risk / Benefits Reviewed With: PT / POA / Parent / Guardian, Accepts Plan and Informed Consent Obtained NPO Date Last Intake of Fluids: 11/22/18 Last Intake of Fluids Comment: Sips with meds this morning per dr order Date Last Intake of Solids: 11/22/18 Time Last Intake of Solids: 23:59 History Surgery Operation Date: 11/22/18 14:45 Proposed Procedures p Incision and Drainage Lumbar - Bret Briggs DO Height/Weight Height: 5 ft 10 in Weight: 122.3 kg Allergies Allergy/AdvReac Type Severity Reaction Status Date / Time cefdinir Allergy Intermediate Rash Verified 11/22/18 02:02 sodium benzoate Allergy Intermediate Rash Verified 11/22/18 02:02 Sulfa (Sulfonamide Allergy Intermediate RASH Verified 11/22/18 02:02 Antibiotics) Medications Home Medications Medication Instructions Recorded Confirmed Last Taken carvedilol [Coreg] 6.25 mg PO BID 07/17/18 11/22/18 11/21/18 cholecalciferol (vitamin D3) 5,000 unit PO DAILY 07/17/18 11/22/18 11/21/18 [Vitamin D3] dicyclomine 10 mg PO TID PRN 07/17/18 11/22/18 Unknown diphenoxylate-atropine 1 tab PO QID PRN 07/17/18 11/22/18 Unknown folic acid 0.8 mg PO QAM 07/17/18 11/22/18 11/21/18 multivitamin [Multiple Vitamins] 1 tab PO DAILY 07/17/18 11/22/18 11/21/18 omega 4-gni-scl-fish oil [Fish Oil] 1 tab PO DAILY 07/17/18 11/22/18 11/21/18 tamsulosin 0.4 mg PO QAM 07/17/18 11/22/18 11/21/18 adalimumab [Humira Pen] 40 mg SUBCUT WK 11/22/18 11/22/18 Unknown Active Medications Generic Name Dose Route Start Last Admin Trade Name Freq PRN Reason Stop Dose Admin Carvedilol 6.25 mg 11/22/18 09:00 11/22/18 07:45 Coreg PO 04/28/19 08:59 6.25 mg BID AC Administration Gadobutrol 12 ml 11/21/18 23:37 11/21/18 23:13 Gadavist 65ml IV 11/25/18 23:36 12 ml ONCE PRN Administration Interaction Checking Aztreonam 2,000 mg/ Dextrose 110 mls @ 100 mls/hr 11/22/18 08:00 11/22/18 09:07 IV 12/02/18 07:59 Infused Q8H AC Infusion Protocol Vancomycin HCl 1,750 mg/ 535 mls @ 200 mls/hr 11/22/18 06:00 11/22/18 08:06 Sodium Chloride IV 12/02/18 05:59 Infused Q12H AC Infusion Protocol Lactated Ringer's 1,000 mls @ 100 mls/hr 11/22/18 12:45 11/22/18 13:09 Lr IV 12/22/18 12:44 100 mls/hr .Q10H AC Administration Tamsulosin HCl 0.4 mg 11/22/18 09:00 11/22/18 07:45 Flomax PO 12/22/18 08:59 0.4 mg QAM AC Administration Zolpidem Tartrate 5 mg 11/22/18 01:36 11/22/18 03:29 Ambien PO 12/22/18 01:35 5 mg HS PRN Administration Sleep Past Medical History Medical History Arthritis Crohns disease STABLE Hypertension IBS (irritable bowel syndrome) Morbid obesity Sleep apnea BIPAP Past Surgical History Surgical History History of difficult intubation LUMBAR I&D= 11/07/17= GLIDESCOPE #4, ETT 8.0 AT [facility] History of Achilles tendon repair LEFT History of back surgery X3 TOTAL (2 YR AGO FUSION/HARDWARE SINCE REMOVED) History of left hip replacement History of left shoulder replacement AND REVISION History of repair of ACL R History of shoulder surgery RIGHT BICEP TENDON History of total right knee replacement (TKR) History of umbilical hernia repair Past Anesthesia History No Hx of Anesthesia Complications and No Family Hx of Anesthesia Complications History of PONV No Motion Sickness Screening History of Motion Sickness: No Social History Smoking Status: Never smoker Do You Dip or Chew Tobacco: No Hx Alcohol Use: No Alcohol type: beer alcohol intake frequency: holidays/special occasions only Hx Substance Use: No substance use type: does not use Exercise / Class Metabolic Activity II 4-5 Yardwork/Stairs/Walk up hill Physical Exam Vital Signs Last Vital Signs Temp 98.2 F 11/22/18 15:48 Pulse 76 11/22/18 15:48 Resp 20 11/22/18 15:48 BP 136/74 11/22/18 15:48 Pulse Ox 97 11/22/18 15:48 ENMT Mouth: no dentition abnormality Thyromental Distance: > or= 3.5 Finger Breadths Mallampati Class: III Neck normal visual inspection Respiratory normal respiratory effort Auscultation: lungs clear to auscultation bilaterally Cardiovascular Rate/Rhythm: regular rate and regular rhythm Testing Electrocardiogram Date: 07/26/18 Sinus rhythm with 1st degree A-V block, rate 64 bpm Laboratory Results 11/21/18 22:12 11/21/18 22:12 PT 10.4 Seconds (9.0-12.0) 11/21/18 22:12 INR 1.0 (0.9-1.1) 11/21/18 22:12 APTT 23.9 Seconds (21.0-31.0) 11/21/18 22:12 Urine Color Dark Yellow 11/21/18 22:20 Urine Appearance Clear (Clear) 11/21/18 22:20 Urine pH 5.0 (4.5-7.5) 11/21/18 22:20 Ur Specific [place] 1.033 (1.000-1.030) H 11/21/18 22:20 Urine Protein Negative (Negative) 11/21/18 22:20 Urine Glucose (UA) Negative (Negative) 11/21/18 22:20 Urine Ketones Trace (Negative) H 11/21/18 22:20 Urine Nitrite Negative (Negative) 11/21/18 22:20 Ur Leukocyte Esterase Negative (Negative) 11/21/18 22:20
[2018-11-22] MEDS ORDERED: MoRPHine SULFATE 2 MG/ML CARP IV PRN (16:25)
[2018-11-22] MEDS ORDERED: ATROPINE SULFATE 0.1 MG/ML 10ML SYR IV PRN ×2 (16:25→19:10)
[2018-11-22] MEDS ORDERED: fentaNYL citrate 100 MCG/2 ML VIAL IV PRN ×2 (16:25→19:10)
[2018-11-22] MEDS ORDERED: ePHEDrine sulfate 50 MG/ML AMP IV PRN ×2 (16:25→19:10)
[2018-11-22] MEDS ORDERED: MIDAZOLAM HCL 1 MG/ML 2ML VIAL ONE (17:04)
[2018-11-22] MEDS ORDERED: fentaNYL citrate 100 MCG/2 ML VIAL ONE (17:04)
--- NOTE | 2018-11-22 17:33 | Orthopedic Consultation ---
Date of Consultation November 22, 2018 Assessment & Plan (1) Spinal abscess: In light of this patient's presentation and findings on MRI as well as his clinical history would like to perform urgent I&D lumbar spine obtain cultures most likely place a drain. Patient understands agrees with this plan. Present on Admission?: Yes History of Present Illness Reason for Consultation: Fevers chills and back pain Attending Physician: Dash Pantoja History of Present Illness This is a 63-year-old male well known to me having undergone I&D and evacuation of epidural abscess of about a year ago. He presents with fevers chills significant back pain beginning yesterday. Imaging of the lumbar spine demonstrates a high level of suspicion for epidural abscess. His labs also indicate a high CRP. Denies any leg pain right now is improved with bedrest. Allergies Allergy/AdvReac Type Severity Reaction Status Date / Time cefdinir Allergy Intermediate Rash Verified 11/22/18 02:02 sodium benzoate Allergy Intermediate Rash Verified 11/22/18 02:02 Sulfa (Sulfonamide Allergy Intermediate RASH Verified 11/22/18 02:02 Antibiotics) Home Medications Home Medications Medication Instructions Recorded Confirmed Type carvedilol [Coreg] 6.25 mg PO BID 07/17/18 11/22/18 History cholecalciferol (vitamin D3) 5,000 unit PO DAILY 07/17/18 11/22/18 History [Vitamin D3] dicyclomine 10 mg PO TID PRN 07/17/18 11/22/18 History diphenoxylate-atropine 1 tab PO QID PRN 07/17/18 11/22/18 History folic acid 0.8 mg PO QAM 07/17/18 11/22/18 History multivitamin [Multiple Vitamins] 1 tab PO DAILY 07/17/18 11/22/18 History omega 5-puy-awp-fish oil [Fish Oil] 1 tab PO DAILY 07/17/18 11/22/18 History tamsulosin 0.4 mg PO QAM 07/17/18 11/22/18 History adalimumab [Humira Pen] 40 mg SUBCUT WK 11/22/18 11/22/18 History Patient History Medical History Arthritis Crohns disease STABLE Hypertension IBS (irritable bowel syndrome) Morbid obesity Sleep apnea BIPAP Surgical History History of difficult intubation LUMBAR I&D= 11/07/17= GLIDESCOPE #4, ETT 8.0 AT [facility] History of Achilles tendon repair LEFT History of back surgery X3 TOTAL (2 YR AGO FUSION/HARDWARE SINCE REMOVED) History of left hip replacement History of left shoulder replacement AND REVISION History of repair of ACL R History of shoulder surgery RIGHT BICEP TENDON History of total right knee replacement (TKR) History of umbilical hernia repair Social History Communication Ability: Effective Beliefs That Will Affect Care: [place] marital status: Current Living Situation: Spouse Other Information That Helps Us Care for You: No Feels Safe at Home: Yes Safety Concerns: Feels Safe At This Time Smoking Status: Never smoker Hx Alcohol Use: No Hx Substance Use: No Physical Exam Vital Signs (Past 24 Hours): Last Vital Signs Temp 37.1 C 11/22/18 16:20 Pulse 70 11/22/18 16:20 Resp 18 11/22/18 16:20 BP 111/78 11/22/18 16:20 Pulse Ox 97 11/22/18 16:20 Physical Exam: On exam he does have some erythema to the lumbar lumbar spine at the lumbosacral junction. There is no drainage. The incision is well- healed. He is not exquisitely tender to palpation. He is neurologically intact detailed exam and lower extremities.
[2018-11-22] MEDS ORDERED: BACITRACIN INJ 50,000 UNIT VIAL ONE (17:39)
[2018-11-22] MEDS ORDERED: GENTAMICIN SULFATE 40 MG/ML 2 ML VIAL ONE (17:39)
[2018-11-22] MEDS ORDERED: VANCOMYCIN HCL 1000MG/20ML VIAL ONE (17:39)
[2018-11-22] MEDS ORDERED: BUPIVACAINE/EPINEPHRINE 0.5% MPF 1:200,000 30 ML VIAL ONE (18:03)
[2018-11-22] MEDS ORDERED: PROPOFOL IV EMULSION 10 MG/ML 20 ML VIAL IV ONE (18:20)
[2018-11-22] MEDS ORDERED: ROCURONIUM BROMIDE 10 MG/ML 5 ML VIAL ONE (18:20)
[2018-11-22] MEDS ORDERED: DEXAMETHASONE SOD INJ 4 MG/ML VIAL ONE (18:20)
[2018-11-22] MEDS ORDERED: ONDANSETRON INJ 2 MG/ML 2 ML VIAL ONE (18:20)
[2018-11-22] MEDS ORDERED: LIDOCAINE HCL 2% 2 ML VIAL/AMP(20MG/ML) INFIL ONE (18:20)
[2018-11-22] MEDS ORDERED: GLYCOPYRROLATE 0.2 MG/ML VIAL ONE (18:21)
[2018-11-22] MEDS ORDERED: NEOSTIGMINE METHYLSULFATE 1 MG/ML 10ML VIAL ONE (18:21)
--- NOTE | 2018-11-22 18:37 | Fluoroscopy Report ---
FL spine 1V any level HISTORY: 63 years-old Male I D OR chronic low back pain COMPARISON: MRI lumbar spine 11/21/2018 TECHNIQUE: 1 spot fluoroscopic image of the lumbar spine was obtained utilizing 1.4 seconds fluorosco py time. FINDINGS: Discectomy changes at L4-L5. There is a linear metallic density structure projecting over the soft ti ssues lateral to L4. Multilevel spondylitic spurring redemonstrated. IMPRESSION: Fluoroscopic assistance as above. Please see operative report for further details. The above report was generated using voice recognition software. It may contain grammatical, syntax o r spelling errors. Electronically signed by: Garry Negrete M.D. 11/22/2018 6:35 PM
--- NOTE | 2018-11-22 18:48 | Operative Report ---
Post Operative Report Pre & Post Diagnosis Operation Date: 11/22/18 14:45 Pre-Op Diagnosis: lumbar spine epidural fluid collection Post-Op Diagnosis: lumbar spine epidural fluid collection Procedure Operation Date: 11/22/18 14:45 Actual Procedures p Incision and Drainage Lumbar Spine with placement of Stimulan antibiotic beads - Bret Briggs DO Surgeon Bret Briggs DO Lab Tech None Estimated Blood Loss 20 Findings Consistent with Post-Op Diagnosis Specimens Cultures of the epidural space Description of Procedure Patient was met with preoperatively case discussed all questions addressed. After informed consent obtained patient was taken to the operative suite underwent intubation placed in a prone position the Don table on top of the Srini frame. All bony prominences well-padded eyes inspected to ensure no external pressure placed upon the. This point the lumbar spine was prepped and draped in the normal sterile fashion. Sharp dissection with the assistance of Bovie cautery was performed down to and exposing the epidural space. Quickly identified an epidural fluid collection. It appeared to be clear there was no e vidence of gross purulence. Cultures were taken. There is no evidence of necrotic tissue and all tissue planes appeared healthy. The incision was copiously irrigated with antibiotic solution and then placed 10 cc of stimulant beads impregnated with vancomycin and gentamicin in the pocket. Incision was then closed with 1 Vicryl fascia 2-0 Vicryl subcutaneously and ej for final skin closure appears sterile dressings placed. Patient will continue PACU stable addition. I attest to the content of the Intraoperative Record and any orders documented therein. Any exceptions are noted below.
[2018-11-22] MEDS ORDERED: HYDROmorphone INJ 1 MG/ML SYRINGE IV PRN ×2 (19:10→19:52)
--- NOTE | 2018-11-22 19:40 | Anesthesiology Progress Note ---
Date of Service November 22, 2018 Anesthesia Post Procedure Vital Signs Vital Signs: Temp Pulse Pulse Pulse Resp BP BP 11/22/18 19:15 85 12 11/22/18 19:11 87 14 137/81 11/22/18 19:10 85 14 11/22/18 19:08 81 14 144/86 H 11/22/18 19:05 87 16 152/78 H 11/22/18 19:00 84 16 162/78 H 11/22/18 18:57 86 14 11/22/18 18:55 83 14 176/79 H 11/22/18 18:54 36.7 C 83 94 H 14 163/86 H 163/86 H 11/22/18 16:20 37.1 C 70 18 111/78 11/22/18 15:48 36.8 C 76 20 136/74 11/22/18 15:28 36.8 C 65 16 145/82 H 11/22/18 07:25 36.4 C L 71 18 120/77 11/22/18 02:10 36.6 C 60 16 124/77 11/22/18 02:06 66 18 109/72 11/22/18 01:11 69 18 110/78 11/21/18 22:20 77 20 115/69 11/21/18 19:56 37.4 C 77 20 123/73 Pulse Ox 11/22/18 19:15 97 11/22/18 19:11 99 11/22/18 19:10 99 11/22/18 19:08 99 11/22/18 19:05 99 11/22/18 19:00 99 11/22/18 18:57 99 11/22/18 18:55 99 11/22/18 18:54 99 11/22/18 16:20 97 11/22/18 15:48 97 11/22/18 15:28 95 11/22/18 07:25 95 11/22/18 02:10 96 11/22/18 02:06 96 11/22/18 01:11 98 11/21/18 22:20 94 11/21/18 19:56 96 Pain Intensity Back: Pain Intensity: 0 Notes Mental Status: alert / awake / arousable and participated in evaluation Patient Amnestic to Procedure: Yes Nausea / Vomiting: adequately controlled Pain: adequately controlled Airway Patency, RR, SpO2: stable & adequate BP & HR: stable & adequate Hydration State: stable & adequate Anesthetic Complications: no major complications apparent and Pt Satisfied with anesthetic care
[2018-11-22] MEDS: SODIUM CHLORIDE 0.9% 1000ML 1,000 ML IV SCH (20:59)
[2018-11-23] MEDS: AZTREONAM 2,000 MG in DEXTROSE 5% 100 ML IV SCH ×3 (05:28→20:45)
[2018-11-23] MEDS: CARVEDILOL 6.25 MG TAB PO SCH ×2 (08:37→20:25)
[2018-11-23] MEDS: TAMSULOSIN HCL 0.4 MG CAP PO SCH (08:37)
[2018-11-23] MEDS: VANCOMYCIN HCL 1,750 MG in SODIUM CHLORIDE 0.9% 500 ML IV SCH ×2 (08:41→22:14)
[2018-11-23] MEDS: SODIUM CHLORIDE 0.9% 1000ML 1,000 ML IV SCH (08:45)
[2018-11-23 09:18] LABS: Est GFR (Non-African American) 93.2
--- NOTE | 2018-11-23 11:07 | Orthopedic Progress Note ---
Date of Service November 23, 2018 Assessment & Plan (1) Abscess in epidural space of lumbar spine: Patient is status post I&D lumbar spine. Again was underwhelmed with the findings. There is no evidence of gross purulence. Obviously we are awaiting final results of cultures obtained. I did place antibiotic beads at the time of surgery. Present on Admission?: Yes Subjective Patient's back pain is controlled no leg pain. Physical Exam Vital Signs (Past 24 Hours): Last Vital Signs Temp 36.7 C 11/23/18 07:12 Pulse 65 11/23/18 07:12 Resp 18 11/23/18 07:12 BP 134/78 11/23/18 07:12 Pulse Ox 94 11/23/18 07:12 Physical Exam: On exam he is in the chair at the bedside. Is good strength testing. He appears quite comfortable.
[2018-11-24] MEDS ORDERED: VANCOMYCIN TROUGH ONE ×2 (05:30→08:30)
[2018-11-24] MEDS: AZTREONAM 2,000 MG in DEXTROSE 5% 100 ML IV SCH ×3 (05:55→21:44)
[2018-11-24] MEDS: CARVEDILOL 6.25 MG TAB PO SCH ×2 (08:44→21:47)
[2018-11-24] MEDS: TAMSULOSIN HCL 0.4 MG CAP PO SCH (08:44)
[2018-11-24 08:55] LABS: Creatinine Clr Calc Pharmacy 115.3 ml/min; Est GFR (Non-African American) 92.3
--- NOTE | 2018-11-24 09:28 | Pharmacy Report ---
Pharmacy Abx Dose Short Note - Date of Service November 24, 2018 - Assessment & Plan Assessment 63 year old M receiving Vancomycin for treatment of spinal abscess. Day # 3/10 of antimicrobial therapy. * Pt currently receiving vanc 1750mg iv q 12h and azactam 2gm iv q8h * Blood cultures and low back culture currently have NGTD. * Renal function remains at baseline. Plan Vancomycin * Trough level of 12.4 mcg/mL is subtherapeutic. * Change to 2000 mg (16mg/kg) IV every 12 hours * Goal trough level: 15 to 20 mcg/mL * Trough level ordered for: 11/25/18 @0930 * Prior to third maintenance dose. Given BMI of 38.7, I am concerned for drug accumulation. Pharmacy will continue to follow and will adjust dose/frequency as necessary. Thank you.
[2018-11-24] MEDS: VANCOMYCIN HCL 2,000 MG in SODIUM CHLORIDE 0.9% 500 ML IV SCH ×2 (10:10→22:57)
--- NOTE | 2018-11-24 15:59 | Hospitalist Progress Note ---
Date of Service November 23, 2018 Assessment & Plan (1) Spinal abscess: 63 y/o M Hx HTN, Crohns, lumbar fusion 2015, lumbar abscess 10/2017. Presenting with lower back pain, fevers and chills. Considering the pt's history, he was sent for an MRI of the lumbar spine after presenting to the ER. This demonstrated a paravertebral abscess at L3-5. The pt is admitted for IV antibiotics and evaluation by the orthopedic service as he will likely require debridement. 1) Lumbar Abscess - placed on broad spectrum antibiotics due to prior history and immunocompromise owing to Humira use. Patient has had this problem in the past year and required senior care antibiotics and hard ta removal. Patient appears to have responded to I and D, however it appears to be that the fluid was clear. Will monitor. Culture from 2018 showed MSSA. 2) HTN - cont Coreg 3) Crohns - Humira should be held until the abscess has resolved. Dose was held today, may resume next week, Full code - SCDs Spent 35 minutes in management of patient. This included reviewing previous chart. Subjective 63 yo male reports feeling well. He denies any pain from his back. He reports being back to his baseline. He does state that for the past 3 weeks he has appeared to be more tired and fatigued, but he is back to his baseline. Review of Systems All systems reviewed & are unremarkable except as noted in HPI & below Physical Exam Vital Signs (Past 24 Hours): Last Vital Signs Temp 36.3 C 11/23/18 15:39 Pulse 76 11/23/18 15:39 Resp 20 11/23/18 15:39 BP 157/89 11/23/18 15:39 Pulse Ox 96 11/23/18 15:39 Physical Exam: General: AAO x 3, no distress ENT: No erythema or exudates, no thrush Eyes: SALINA, EOMI Head and neck: Normocephalic, atraumatic, No JVD, neck is supple. Chest/heart: Nontender, S1,2, RRR, no murmurs, no gallops Lungs: CTAB, no wheezing or crackles Abdomen: Nontender, nondistended, BS+ Neuro: AAO x 3, speech is clear, no unilateral weakness or loss of sensation, coordination intact Musculoskeletal: Lower back is tender to palpation Skin: No longer having cellulitis. Extremities: No clubbing, cyanosis, edema
[2018-11-24 16:20] LABS: Hemoglobin 13.1 g/dL (14.0-18.0); Mean Corpuscular Hgb Conc 33.6 g/dL (32-36); Mean Corpuscular Volume 92.4 fL (80-100); Mean Platelet Volume 10.7 fL (7.4-10.4); Platelet Count 184 K/uL (130-400); RDW Coefficient of Variation 13.8 % (11.5-14.5); RDW Standard Deviation 46.3 fL (36.4-46.3); Red Blood Count 4.22 M/uL (4.7-6.1); White Blood Count 8.66 K/uL (4.8-10.8)
[2018-11-24 16:32] LABS: Potassium 3.8 mmol/L (3.5-5.1)
[2018-11-24 17:09] LABS: C Reactive Protein 1.93 mg/dl (0-0.29)
[2018-11-24 18:06] LABS: Lyme Ab IgG w/WB Rflx Negative (Negative); Lyme Ab IgM w/WB Rflx Negative (Negative)
--- NOTE | 2018-11-24 23:17 | Hospitalist Progress Note ---
Date of Service November 24, 2018 Assessment & Plan (1) Spinal abscess: 63 y/o M Hx HTN, Crohns, lumbar fusion 2015, lumbar abscess 10/2017. Presenting with lower back pain, fevers and chills. Considering the pt's history, he was sent for an MRI of the lumbar spine after presenting to the ER. This demonstrated a paravertebral abscess at L3-5. The pt is admitted for IV antibiotics and evaluation by the orthopedic service as he will likely require debridement. 1) Lumbar Abscess - placed on broad spectrum antibiotics due to prior history and immunocompromise owing to Humira use. Patient has had this problem in the past year and required termite control technician antibiotics and hard ta removal. Patient appears to have responded to I and D, however it appears to be that the fluid was clear. Will monitor. Culture from 2018 showed MSSA. Awaiting input from ID. Will place on doxy. 2) HTN - cont Coreg 3) Crohns - Humira should be held until the abscess has resolved. Dose was held today, may resume next week, Full code - SCDs Spent 25 minutes in management of patient. Subjective 63 yo male reports feeling well. He denies any pain from his back. No new symptoms. Physical Exam Vital Signs (Past 24 Hours): Last Vital Signs Temp 36.6 C 11/24/18 23:09 Pulse 66 11/24/18 23:09 Resp 14 11/24/18 23:09 BP 129/74 11/24/18 23:09 Pulse Ox 95 11/24/18 23:09 Physical Exam: General: AAO x 3, no distress ENT: No erythema or exudates, no thrush Eyes: SALINA, EOMI Head and neck: Normocephalic, atraumatic, No JVD, neck is supple. Chest/heart: Nontender, S1,2, RRR, no murmurs, no gallops Lungs: CTAB, no wheezing or crackles Abdomen: Nontender, nondistended, BS+ Neuro: AAO x 3, speech is clear, no unilateral weakness or loss of sensation, coordination intact Musculoskeletal: Lower back is tender to palpation Skin: No longer having cellulitis. Extremities: No clubbing, cyanosis, edema
[2018-11-25 05:58] LABS: Hematocrit (blood only) 41.3 % (42-52); Hemoglobin 13.7 g/dL (14.0-18.0); Mean Corpuscular Hgb Conc 33.2 g/dL (32-36); Mean Corpuscular Volume 91.8 fL (80-100); Mean Platelet Volume 10.7 fL (7.4-10.4); Platelet Count 204 K/uL (130-400); RDW Coefficient of Variation 13.7 % (11.5-14.5); RDW Standard Deviation 46.4 fL (36.4-46.3); White Blood Count 7.17 K/uL (4.8-10.8)
[2018-11-25 06:15] LABS: Creatinine Clr Calc Pharmacy 110.2 ml/min; Est GFR (Non-African American) 90.6
[2018-11-25] MEDS: AZTREONAM 2,000 MG in DEXTROSE 5% 100 ML IV SCH ×2 (06:27→13:54)
[2018-11-25] MEDS: CARVEDILOL 6.25 MG TAB PO SCH (08:34)
[2018-11-25] MEDS: TAMSULOSIN HCL 0.4 MG CAP PO SCH (08:36)
[2018-11-25] MEDS ORDERED: VANCOMYCIN TROUGH ONE (09:30)
[2018-11-25] MEDS: VANCOMYCIN HCL 2,000 MG in SODIUM CHLORIDE 0.9% 500 ML IV SCH (09:48)
--- NOTE | 2018-11-25 11:31 | Infectious Disease Consult ---
Date of Consultation November 25, 2018 Assessment & Plan (1) Seroma after procedure: no evidence that fluid is infected, however, with his h/o of MSSA abscess I agree that abx are warranted. he does not wish to have IV abx unless necessary. He is afebrile, clinically stable with negative blood and OR cultures. would suggest that he resume on doxy 100mg po bid with food, can follow with ID post d/c from hospital. May benefit from ongoing abx, expecially if he is to stay on immunosuppressant agent. History of Present Illness Attending Physician: Dash Pantoja pt admitted last week due to acute onset of low back pain. has h/o infected hardware, MSSA infection, had surgery last year due to abscess, was treated with 6 weeks of IV abx and then transitioned to po doxy. He was last seen in 04/[address] Nunn. Pt states he stopped his po abx at that time and has been off of abx until this hospital stay. He states he had little energy for the last week but denies any f/c. no n/v/d/abd pain, eating well. no cp, sob, cough. denies trauma to back. He was placed on IV abx in ER and remains on IV abx, tolerating well. MRI done - revelaed collection measuring 6x6.5x1.7cm. Went to OR on 11/22 for debridement, tolerated well. pain completely resolved post op, asking to go home. Blood cultures from 11/21 are negative to date x 2 sets. OR cultures from 11/22 negative as well. gram stain negative. Spoke with surgery, state that no purulent material found in Or, collection c/w seroma. On my exam he states he is improved significantly and anxious to go home. no fevers since admission. wbc nml. on Jazmin for 4 years and is concerned this may be responsible. ID was consulted to review cutlure and decide po vs IV abx. Pt states he does not wish to be on IV abx again but would like to be safe as he has h/o infection 1 year ago. Allergies Allergy/AdvReac Type Severity Reaction Status Date / Time cefdinir Allergy Intermediate Rash Verified 11/22/18 02:02 sodium benzoate Allergy Intermediate Rash Verified 11/22/18 02:02 Sulfa (Sulfonamide Allergy Intermediate RASH Verified 11/22/18 02:02 Antibiotics) Home Medications Home Medications Medication Instructions Recorded Confirmed Type carvedilol [Coreg] 6.25 mg PO BID 07/17/18 11/22/18 History cholecalciferol (vitamin D3) 5,000 unit PO DAILY 07/17/18 11/22/18 History [Vitamin D3] dicyclomine 10 mg PO TID PRN 07/17/18 11/22/18 History diphenoxylate-atropine 1 tab PO QID PRN 07/17/18 11/22/18 History folic acid 0.8 mg PO QAM 07/17/18 11/22/18 History multivitamin [Multiple Vitamins] 1 tab PO DAILY 07/17/18 11/22/18 History omega 0-tkq-jon-fish oil [Fish Oil] 1 tab PO DAILY 07/17/18 11/22/18 History tamsulosin 0.4 mg PO QAM 07/17/18 11/22/18 History adalimumab [Humira Pen] 40 mg SUBCUT WK 11/22/18 11/22/18 History Patient History Medical History Arthritis Crohns disease STABLE Hypertension IBS (irritable bowel syndrome) Morbid obesity Sleep apnea BIPAP Surgical History History of difficult intubation LUMBAR I&D= 11/07/17= GLIDESCOPE #4, ETT 8.0 AT [facility] History of Achilles tendon repair LEFT History of back surgery X3 TOTAL (2 YR AGO FUSION/HARDWARE SINCE REMOVED) History of left hip replacement History of left shoulder replacement AND REVISION History of repair of ACL R History of shoulder surgery RIGHT BICEP TENDON History of total right knee replacement (TKR) History of umbilical hernia repair Social History Communication Ability: Effective Beliefs That Will Affect Care: [employer] marital status: Current Living Situation: Spouse Other Information That Helps Us Care for You: No Feels Safe at Home: Yes Safety Concerns: Feels Safe At This Time Smoking Status: Never smoker Hx Alcohol Use: No Hx Substance Use: No Review of Systems all remaining ros reviewed and are negative Physical Exam Vital Signs (Past 24 Hours): Last Vital Signs Temp 36.8 C 11/25/18 06:55 Pulse 61 11/25/18 06:55 Resp 18 11/25/18 06:55 BP 167/85 H 11/25/18 06:55 Pulse Ox 95 11/25/18 06:55 Constitutional: WD/WN, vitals as above Eyes: PERRL, conjunctivae normal, anicteric sclerae ENMT: external ear and nose normal, oropharynx normal Neck: normal visual inspection Respiratory: normal respiratory effort, lungs clear to auscultation Cardiovascular: RRR, no murmur, no edema Gastrointestinal (Abdomen): normal bowel sounds, soft, nontender, no hepatosplenomegaly Musculoskeletal: no cyanosis or clubbing, extremities motor strength 5/5 Skin: no rashes, warm and dry surgery dressing c/d/i, no surrounding warmth, erythema, non tender Psychiatric: A+Ox3, euthymic affect Results & Data Laboratory Results Microbiology 11/22/18 18:24 Back,Lower Gram Stain - Final 11/22/18 18:24 Back,Lower Aerobic and Anaerobic Culture - Preliminary No growth to date. 11/21/18 22:12 Blood Blood Culture - Preliminary No growth to date. 11/21/18 22:35 Blood Blood Culture - Preliminary No growth to date.
--- NOTE | 2018-11-25 13:09 | Pharmacy Report ---
Pharmacy Abx Dose Short Note - Date of Service November 25, 2018 - Assessment & Plan Assessment 63 year old M receiving vancomycin and azactam for treatment of possible spinal abscess Day # 4 of antimicrobial therapy. Plan Vancomycin * Trough level came back slightly subtherapeutic, but acceptable today at ~14 mcg/ml (goal closer to ~15 mcg/ml for abscess) * Per ID notes, no evidence fluid infection s/p I&D of lumbar spine. Blood cx and back cx are no growth to date * ID recommending resuming doxycycline 100 mg bid and that he may benefit from ongoing abx if he stays on immunosupressant agent. * Will continue with current regimen of vancomycin as patient improving clinically, no leukocytosis, remains afebrile, cx's negative. Suspect given elevated BMI >35 kg/m2 patient susceptible to accumulation of vancomycin - will monitor closely * Will follow up to determine if patient can transition to oral antibiotics at this time per ID recommendations Azactam: * 2 gm iv q 8 hrs - appropriate for CrCl >30 ml/min (CrCl >100 ml/min) Pharmacy will continue to follow and will adjust dose/frequency as necessary. Thank you.
--- NOTE | 2018-12-02 08:12 | Discharge Summary ---
Date of Service November 25, 2018 Admission HPI Per Admitting Provider 63 y/o M Hx HTN, Crohns, lumbar fusion 2015, lumbar abscess 10/2017. Presenting with lower back pain, fevers and chills. Considering the pt's history, he was sent for an MRI of the lumbar spine after presenting to the ER. This demonstrated a paravertebral abscess at L3-5. The pt is admitted for IV antibiotics and evaluation by the orthopedic service as he will likely require debridement. PMH: 1) Crohns - treated with Humira 2) HTN 3) Lumbar stenosis 4) Lumbar abscess Surgical: 1) TKA 2) JACKSON 3) Spermatocele surgery 4) Lumbar fusion Social: Does not drink or smoke Family: Noncontributory to current complaint Principal Diagnosis Lumbar abscess Discharge Exam General: AAO x 3, no distress ENT: No erythema or exudates, no thrush Eyes: SALINA, EOMI Head and neck: Normocephalic, atraumatic, No JVD, neck is supple. Chest/heart: Nontender, S1,2, RRR, no murmurs, no gallops Lungs: CTAB, no wheezing or crackles Abdomen: Nontender, nondistended, BS+ Neuro: AAO x 3, speech is clear, no unilateral weakness or loss of sensation, coordination intact Musculoskeletal: Lower back is no longer tender to palpation. Skin: No longer having cellulitis. Extremities: No clubbing, cyanosis, edema Discharge Data Allergies Allergy/AdvReac Type Severity Reaction Status Date / Time cefdinir Allergy Intermediate Rash Verified 11/22/18 02:02 sodium benzoate Allergy Intermediate Rash Verified 11/22/18 02:02 Sulfa (Sulfonamide Allergy Intermediate RASH Verified 11/22/18 02:02 Antibiotics) Consultations 11/22/18 00:32 Consult Orthopedic Surgery Stat ED Decision to Admit Stat 11/22/18 01:20 ED Decision to Admit Stat 11/22/18 02:40 Consult Orthopedic Surgery Stat 11/23/18 14:00 Consult Infectious Diseases Routine Procedures Performed Operation Date: 11/22/18 14:45 Actual Procedures p Incision and Drainage Lumbar Spine with placement of Stimulan antibiotic beads - Bret Briggs DO Ordered Studies 11/21/18 21:52 MR lumbar spine wo/w con Urgent 11/22/18 FL fluoroscopy <1hr Routine FL spine 1V any level Routine Hospital Course (1) Spinal abscess: 63 y/o M Hx HTN, Crohns, lumbar fusion 2016, lumbar abscess 10/2017. Presenting with lower back pain, fevers and chills. Considering the pt's history, he was sent for an MRI of the lumbar spine after presenting to the ER. This demonstrated a paravertebral abscess at L3-5. The pt is admitted for IV antibiotics and evaluation by the orthopedic service as he will likely require debridement. 1) Lumbar Abscess - placed on broad spectrum antibiotics due to prior history and immunocompromise owing to Humira use. Patient has had this problem in the past year and required residential antibiotics and hard ta removal. Patient appears to have responded to I and D, however it appears to be that the fluid was clear. Will monitor. Culture from 2018 showed MSSA. Awaiting input from ID. Will place on doxy. Appreciate input from ID. no evidence that fluid is infected, however, with his h/o of MSSA abscess I agree that abx are warranted. he does not wish to have IV abx unless necessary. He is afebrile, clinically stable with negative blood and OR cultures. would suggest that he resume on doxy 100mg po bid with food, can follow with ID post d/c from hospital. May benefit from ongoing abx, expecially if he is to stay on immunosuppressant agent. Will discharge patient. 2) HTN - cont Coreg 3) Crohns - Humira should be held until the abscess has resolved. Dose was held today, may resume next week, Full code - SCDs Total Time Total Time Spent Total Time Spent (In Minutes): 31 Total Time Includes: Examination of the Patient, Discharge Planning and Medication Reconciliation Discharge Plan Discharge Items Patient Disposition: Home - Self-Care Reason For Visit: PARASPINAL ABSCESS Discharge Diagnosis: para spinal abscess Discharge Goals: Decrease discomfort Activity: Resume your previous activity Non-emergency contact: Primary Care Provider Call non-emergency contact if: you have any medication questions Follow-up/Referrals: James Nunn MD [Physician] - 12/06/18 11:00 am (Please, follow up with Dr. Nunn (infectious disease specialist) on SundayDecember 06 at 11:00 am. *This office is located in [address] of [facility] - big building next to this hospital. If you need to change this appointment, call the office at [phone].) Chantale Morales, [Primary Care Provider] - 12/03/18 9:20 am (Please, follow up with Dr. Morales on SundayDecember 03 at 9:20 am. *If you need to change this appointment, call the office at [phone].) Bret Briggs DO [Surgeon] - (Please, follow up at [facility] with Dr. Briggs. *The nurse from this office is to call you with the appointment information. If you have any questions, call the office at [phone].) Diet: Regular Addtl Provider Instructions: Continue with antibiotics. Followup with Dr. Nunn in 1-2 wee Prescriptions: New doxycycline hyclate 100 mg tablet 100 mg PO BID 30 Days Qty: 60 RF: 0 Continued Humira Pen 40 mg/0.8 mL pen injector kit 40 mg subcut WK RF: 0 multivitamin [Multiple Vitamins] Tablet 1 tab PO DAILY RF: 0 carvedilol [Coreg] 6.25 mg Tablet 6.25 mg PO BID RF: 0 diphenoxylate-atropine 2.5-0.025 mg Tablet 1 tab PO QID PRN (Reason: Diarrhea) RF: 0 tamsulosin 0.4 mg Capsule 0.4 mg PO QAM RF: 0 dicyclomine 10 mg Capsule 10 mg PO TID PRN (Reason: abdominal cramping) RF: 0 folic acid 800 mcg Tablet 0.8 mg PO QAM RF: 0 cholecalciferol (vitamin D3) [Vitamin D3] 5,000 unit Tablet 5,000 unit PO DAILY RF: 0 omega 4-bsb-sei-fish oil [Fish Oil] 1,000 mg (120 mg-180 mg) Capsule 1 tab PO DAILY RF: 0 Stand-Alone Forms: [facility] Discharge Orders: Discharge Order (Routine); Ordered 11/25/18 Ordered By: Dash Pantoja Admission Data Admit Date/Time: 11/22/18 01:38 Attending Provider: Dash Pantoja Admit Provider: Ramiro Ferro Primary Care Provider: Chantale Morales Other Providers: Ramiro Ferro ; Bret Briggs ; James Nunn Service: Surgical Services Other Interventions: Discharge Summary Assessment (RN) Last Done: 11/25/18 15:55 DC Date/Time DO NOT enter until pt leaves facility: 11/25/18 16:32
== END 2018-11-25 16:32 | disposition home or self-care (01) | DRG 908 ==
LOC: ED 19:55 → 3E 11-22 01:38 → SUATTDRO 11-22 01:38 → 3E 11-22 02:03

== ENCOUNTER 2022-02-06 12:40 | Inpatient (IN) ==
[2022-02-06] MEDS ORDERED: dilTIAZem HCl 5 MG/ML 5 ML VIAL IV STA (13:01)
[2022-02-06] MEDS ORDERED: STAT IV Infusion **Titration per Protocol STA (13:01)
--- NOTE | 2022-02-06 13:01 | Emergency Department Note ---
Impression & Plan Atrial flutter with rapid ventricular response, Elevated bilirubin ED Provider Note NAME: CAESAR BARTON JR AGE: 66 SEX: M : 1955 ARRIVES VIA: Walk-In INFORMANT: Patient ED PROVIDER(S): Sergo Isaacs DO CHIEF COMPLAINT: abnormal ekg HPI: Patient is a 66-year-old male who presents to the ER for palpitations/abnormal EKG. He went to [facility] checkup and was found to be in A. fib and was referred in. He denies any headache or change in vision. No chest pain or shortness of breath. He denies any palpitations. No belly pain, nausea, vomiting, or diarrhea, dysuria, urgency, or frequency. He is otherwise completely asymptomatic without any complaints. Denies any previous brain bleeds, coughing up blood, vomiting blood, urinating blood, dark tarry stools, black stools or any recent trauma or surgery ROS: See above HPI for pertinent positives & negatives. A total of 10 systems reviewed and were otherwise negative. PAST MEDICAL HISTORY:See Below PAST SURGICAL HISTORY:See Below FAMILY HISTORY:See Below SOCIAL HISTORY:See Below HOME MEDICATIONS:See Below ALLERGIES:See Below VITALS:See Below PHYSICAL EXAMINATION: GENERAL: Sitting up in bed, alert, well appearing, well nourished, no distress, non-toxic EYE EXAM: normal conjunctiva. OROPHARYNX: no exudate, no erythema, lips, buccal mucosa, and tongue normal and mucous membranes are moist NECK: supple, no nuchal rigidity, no adenopathy, non-tender LUNGS: Clear to auscultation. Normal chest wall mechanics HEART: Tachycardic and regular rate, S1 normal and S2 normal ABDOMEN: abdomen soft, non-tender, normo-active bowel sounds, no masses, no rebound or guarding. UPPER EXTREMITIES: upper extremities are grossly normal. LOWER EXTREMITIES: No pitting edema. NEURO EXAM: Normal sensorium, cranial nerves II-XII grossly intact, normal speech, no gross weakness of arms, no gross weakness of legs. MEDICAL DECISION MAKING: Patient is a 66-year-old male who presents ER for above-stated complaint. IV was established blood work obtained. Labs show no significant leukocytosis or anemia. BMP with slightly elevated glucose at 128. T bili elevated 2.7. Troponin was negative. Lipase normal. COVID-negative. Chest x-ray was clean. EKG confirms atrial flutter with a variable block in the 140s. She was started on Cardizem drip and given a Cardizem bolus. Heart rate trended down to the 90s. He was updated bedside. He was discussed with hospitalist admitted for further work-up. Triage Nursing notes reviewed. Limited review of prior medical records performed Vital Signs: reviewed and remarkable for tachycardic Differential diagnosis: Differential diagnoses includes but is not limited to acute coronary syndrome, myocardial infarction, pericarditis, pulmonary embolus, aortic dissection, pneumonia, pneumothorax, musculoskeletal, shingles, esophageal. ER treatment provided: See below Diagnostics interpreted by me: ECG: Atrial flutter with a variable block rate of 134 Normal axis No PVCs QTC 409 Cardiac Monitoring: An order was placed for continuous cardiac monitoring. The monitor shows a rate of 140 with Afutter rhythm. Laboratory studies: As stated above and show below. Imaging studies: POrtable AP upright 1 view of the chest was unremarkable Consultation(s): Discussed with Dr. Jonas Cui for further evaluation Procedures: none Critical Care: I have personally spent 32 minutes of critical care time in the direct management of this patient. This includes bedside care, interpretation of diagnostic studies, and testing, discussion with consultants, patient, and family members, and other required patient management activities. This 32 minutes is in excess of all separately billable procedures. Past Med/Surg History Medical History Abscess in epidural space of lumbar spine (~2017) Arthritis Benign prostatic hyperplasia with urinary obstruction Crohn's disease of ileum Hyperlipidemia Hypertension IBS (irritable bowel syndrome) Lumbar spinal stenosis Methicillin susceptible Staphylococcus aureus infection Peyronie's disease Sciatica Sleep apnea Vitamin D deficiency Surgical History Biceps tendon rupture Fusion of spine History of Achilles tendon repair History of colonoscopy History of difficult intubation History of discectomy History of hydrocelectomy (~10/23/20) History of left hip replacement (12/26/16) History of left shoulder replacement History of repair of ACL History of thumb surgery (05/2020) History of tonsillectomy and adenoidectomy History of tooth extraction History of total right knee replacement (TKR) History of umbilical hernia repair S/P carpal tunnel release (05/2020) S/P hardware removal (10/2017) Family History Mother Carotid atherosclerosis Acute myocardial infarction Stroke Father , FATHER OF MY AT AGE 54; PATERNAL GRANDFATHER OF [place] IN HIS 40'S Acute myocardial infarction Hypertension Uncle Colorectal cancer Grandmother (Paternal) Diabetes Denies family history of Ovarian cancer Prostate cancer Breast cancer Crohn's colitis Ulcerative colitis Social History Smoking Status: Never smoker Second Hand Exposure: No; Hx Alcohol Use: No Hx Substance Use: No Preferred Language: Lithuanian Communication Ability: Effective Visual Impairment: No Limitations Hearing Ability: Normal 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: No Beliefs That Will Affect Care: None marital status: Current Living Situation: Spouse Current Living Situation Comment: HAS A DOG current occupational status: employed 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 [employer] How many Children do You have: 5 Feels Safe at Home: Yes Childhood Exposure to Second-Hand Smoke: Yes caffeine: Yes during the past year weight has: remained stable Dental Care, Regularly: Yes Physical Activity Frequency: Daily Seatbelt Use: always Sunscreen Use: Yes Assistive Devices: BiPap Allergies Allergies Allergy/AdvReac Type Severity Reaction Status Date / Time cefdinir Allergy Mild Rash Verified 02/06/22 15:09 sodium benzoate Allergy Mild Rash Verified 02/06/22 15:09 Sulfa (Sulfonamide Allergy Mild RASH Verified 02/06/22 15:09 Antibiotics) Home Meds Home Medications Medication Instructions Recorded Confirmed folic acid 1 mg tablet 1 mg PO QAM #90 tab 03/07/19 02/06/22 cholecalciferol (vitamin D3) 125 10,000 units PO QAM 10/13/20 02/06/22 mcg (5,000 unit) capsule multivitamin (Multiple Vitamins) 1 tab PO QAM 10/13/20 02/06/22 omega 5-ivt-bcq-fish oil 1,000 mg 1 cap PO QAM 10/13/20 02/06/22 (120 mg-180 mg) capsule (Fish Oil) tadalafil 5 mg tablet 5.5 mg PO QAM 10/13/20 02/06/22 dicyclomine 20 mg tablet 20 mg PO TID PRN tab 11/16/21 06/13/22 allopurinol 300 mg tablet 300 mg PO QAM 10/28/21 02/06/22 ascorbic acid (vitamin C) 1,000 mg 1 g PO QAM 10/28/21 02/06/22 tablet (Vitamin C) cetirizine 10 mg tablet 10 mg PO DAILY PRN 10/28/21 02/06/22 fluticasone propionate 50 2 spray INTRANASAL HS PRN 10/28/21 02/06/22 mcg/actuation nasal spray,suspension (Allergy Relief (fluticasone)) Previous Rx's Medication Instructions Recorded BiPap Supplies #1 ea 05/02/19 miscellaneous medical supply #1 ea 05/19/19 diphenoxylate-atropine 2.5 1 tab PO BID PRN #60 tab 02/21/21 mg-0.025 mg tablet BI-PAP/Supplies #1 ea 06/22/21 carvedilol 6.25 mg tablet (Coreg) 6.25 mg PO BID #180 tab 08/23/21 tamsulosin 0.4 mg capsule 0.4 mg PO QAM #90 cap 08/23/21 ustekinumab 90 mg/mL subcutaneous 90 mg SQ Q8WK #1 ml 11/03/21 syringe (Stelara) testosterone cypionate 100 mg/mL 100 mg IM Q7D #10 ml 01/11/22 intramuscular oil Results & Data (ED) Vital Signs Vital Signs - 24 hr 02/06/22 12:45 02/06/22 13:00 02/06/22 13:04 Temperature 36.6 C Temperature Source Temporal Artery Scan Pulse Rate 151 H 115 H Respiratory Rate 18 14 Respiratory Effort / Characteristics Non-Labored Respiratory Depth Normal Blood Pressure 158/95 H 124/74 Blood Pressure Mean 116 90 Pulse Oximetry 96 93 96 Oxygen Delivery Method Room Air Room Air Sepsis Recent Fever Within 48 Hours No Sepsis New/Unexplained Change in Mental Status No Sepsis Action Taken by Nursing No Action Required 02/06/22 13:30 02/06/22 14:01 02/06/22 14:30 Temperature Temperature Source Pulse Rate 93 H 105 H 76 Respiratory Rate 12 21 16 Respiratory Effort / Characteristics Respiratory Depth Blood Pressure 122/61 108/77 130/62 Blood Pressure Mean 81 87 84 Pulse Oximetry 92 96 92 Oxygen Delivery Method Sepsis Recent Fever Within 48 Hours Sepsis New/Unexplained Change in Mental Status Sepsis Action Taken by Nursing 02/06/22 15:00 02/06/22 15:30 02/06/22 16:01 Temperature Temperature Source Pulse Rate 79 76 89 Respiratory Rate 24 15 23 Respiratory Effort / Characteristics Respiratory Depth Blood Pressure 117/72 124/75 97/76 L Blood Pressure Mean 87 91 83 Pulse Oximetry 95 95 93 Oxygen Delivery Method Sepsis Recent Fever Within 48 Hours Sepsis New/Unexplained Change in Mental Status Sepsis Action Taken by Nursing Laboratory Data Result diagrams: 02/06/22 12:59 02/06/22 12:59 Lab Results 02/06/22 02/06/22 02/06/22 Range/Units 12:59 12:59 13:06 WBC 8.18 (4.8-10.8) K/uL RBC 5.68 (4.7-6.1) M/uL Hgb 17.6 (14.0-18.0) g/dL Hct 52.0 (42-52) % MCV 91.5 (80-100) fL MCH 31.0 (25-34) pg MCHC 33.8 (32-36) g/dL RDW Std Deviation 49.0 H (36.4-46.3) fL RDW Coeff of Kd 14.5 (11.5-14.5) % Plt Count 219 (130-400) K/uL MPV 11.9 H (7.4-10.4) fL Immature Gran % (Auto) 0.2 % Neut % (Auto) 71.3 % Lymph % (Auto) 21.1 % [place] % (Auto) 6.8 % Eos % (Auto) 0.5 % Baso % (Auto) 0.1 % Neut # (Auto) 5.82 (1.4-6.5) K/uL Lymph # (Auto) 1.73 (1.2-3.4) K/uL [place] # (Auto) 0.56 (0.11-0.59) K/uL Eos # (Auto) 0.04 (0-0.5) K/uL Baso # (Auto) 0.01 (0-0.2) K/uL Immature Gran # (Auto) 0.02 (0.00-0.02) K/uL Sodium 135 L (136-145) mmol/L Potassium 4.0 (3.5-5.1) mmol/L Chloride 100 (98-107) mmol/L Carbon Dioxide 27 (21-32) mmol/L Anion Gap 8 (3-11) BUN 21 (6-23) mg/dl Creatinine 1.15 (0.6-1.4) mg/dl Est Cr Clr Drug Dosing Not Reportable Est GFR ( Amer) 76.4 ml/min Est GFR (Non-Af Amer) 65.9 ml/min BUN/Creatinine Ratio 18.3 (10-20) Glucose 128 H (70-99(Fasting)) mg/dl Calcium 9.7 (8.5-10.1) mg/dl Total Bilirubin 2.7 H (0.2-1.0) mg/dl AST 27 (13-39) U/L ALT 26 (7-52) U/L Alkaline Phosphatase 44 (34-104) U/L Troponin I High Sens 6.8 (0-20) pg/ml Total Protein 7.4 (6.0-8.3) gm/dl Albumin 4.3 (3.4-5.0) gm/dl Globulin 3.1 (2.5-4.0) gm/dl Albumin/Globulin Ratio 1.4 (0.9-2) Lipase 7 L (11-82) U/L SARS-CoV-2, RNA, NAAT NEGATIVE (NEGATIVE) Administered Medications Diltiazem HCl 125 mg/ Dextrose 125 mls @ 5 mls/hr IV .Q24H [facility]; Protocol Stop: 03/08/22 13:14 Last Admin: 02/06/22 13:31 Dose: 5 mg/hr, 5 mls/hr Documented by: [id number] Cosigned by: [id number] Discontinued Medications Apixaban (Apixaban 5 Mg Tablet) 5 mg PO ONE STA Stop: 02/06/22 14:26 Last Admin: 02/06/22 14:53 Dose: 5 mg Documented by: [id number] Diltiazem HCl (Diltiazem Hcl 5 Mg/Ml 5 Ml Vial) 10 mg IV NOW STA Stop: 02/06/22 13:02 Last Admin: 02/06/22 13:07 Dose: 10 mg Documented by: [id number] Cosigned by: [id number] Imaging Data Radiologist's Impression: Chest X-Ray 06/13/22 12:58 SINGLE VIEW CHEST CLINICAL HISTORY: Atypical chest pain. FINDINGS: An AP, portable, upright chest radiograph is compared to study dated 10/02/2020. The heart is top normal for projection. The pulmonary vasculature is noncongested. The lungs and pleural spaces are clear. No pneumothorax is seen. The bony thorax is grossly intact. A left shoulder arthroplasty is in place. Arthritic change is seen in the right shoulder. IMPRESSION: No acute cardiopulmonary abnormality. ACT 112: Negative or not required by law. Electronically signed by: Gonzalez Reyna M.D. 02/06/2022 1:19 PM Discharge Plan Visit Data Chief Complaint: Abnormal Labs/Diagnostic Testing Stated Complaint: IRREGULAR EKG ED Provider: Sergo Isaacs Discharge Problem: Atrial flutter with rapid ventricular response, Elevated bilirubin Forms Stand Alone Forms: [facility] Prescriptions Prescriptions: No Action (DME) BiPap Supplies Misc See Dose Instructions .ROUTE .MEDSUPPLY Qty: 1 RF: 0 (DME) miscellaneous medical supply misc See Dose Instructions .ROUTE .MEDSUPPLY Qty: 1 RF: 0 diphenoxylate-atropine 2.5-0.025 mg tablet 1 tab PO BID PRN (Reason: diarrhea) Qty: 60 RF: 2 (DME) BI-PAP/Supplies Misc See Dose Instructions .ROUTE .MEDSUPPLY Qty: 1 RF: 0 tamsulosin 0.4 mg capsule 0.4 mg PO QAM Qty: 90 RF: 1 carvedilol [Coreg] 6.25 mg tablet 6.25 mg PO BID Qty: 180 RF: 1 Stelara 90 mg/mL syringe 90 mg SQ Q8WK Qty: 1 RF: 6 testosterone cypionate 100 mg/mL oil 100 mg IM Q7D Qty: 10 RF: 0 folic acid 1 mg tablet 1 mg PO QAM Qty: 90 RF: 0 dicyclomine 20 mg tablet 20 mg PO TID PRN (Reason: Abdominal Discomfort) RF: 0 multivitamin [Multiple Vitamins] tablet 1 tab PO QAM RF: 0 cholecalciferol (vitamin D3) 5,000 unit capsule 10,000 units PO QAM RF: 0 tadalafil 5 mg tablet 5.5 mg PO QAM RF: 0 omega 7-iog-dle-fish oil [Fish Oil] 1,000 mg (120 mg-180 mg) capsule 1 cap PO QAM RF: 0 cetirizine 10 mg tablet 10 mg PO DAILY PRN (Reason: Allergy Symptoms) RF: 0 allopurinol 300 mg tablet 300 mg PO QAM RF: 0 fluticasone propionate [Allergy Relief (fluticasone)] 50 mcg/actuation spray,suspension 2 spray intranasal HS PRN (Reason: Nasal Congestion) RF: 0 ascorbic acid (vitamin C) [Vitamin C] 1,000 mg Tablet 1 g PO QAM RF: 0 Referrals Referrals: Chantale Morales DO [Primary Care Provider] -
[2022-02-06] MEDS ORDERED: dilTIAZem HCL 125 MG in DEXTROSE 5% 100 ML IV SCH (13:15)
--- NOTE | 2022-02-06 13:20 | XRay Report ---
SINGLE VIEW CHEST CLINICAL HISTORY: Atypical chest pain. FINDINGS: An AP, portable, upright chest radiograph is compared to study dated 10/02/2020. The heart is top normal for projection. The pulmonary vasculature is noncongested. The lungs and pleural spaces a re clear. No pneumothorax is seen. The bony thorax is grossly intact. A left shoulder arthroplasty is in place. Arthritic change is seen in the right shoulder. IMPRESSION: No acute cardiopulmonary abnormality. ACT 112: Negative or not required by law. Electronically signed by: Gonzalez Reyna M.D. 02/06/2022 1:19 PM
[2022-02-06 13:33] LABS: Basophils # (auto) 0.01 K/uL (0-0.2); Basophils % (auto) 0.1 %; Eosinophils # (auto) 0.04 K/uL (0-0.5); Eosinophils % (auto) 0.5 %; Hemoglobin 17.6 g/dL (14.0-18.0); Immature Granulocytes # (auto) 0.02 K/uL (0.00-0.02); Immature Granulocytes % (auto) 0.2 %; Lymphocytes # (auto) 1.73 K/uL (1.2-3.4); Lymphocytes % (auto) 21.1 %; Mean Corpuscular Hgb Conc 33.8 g/dL (32-36); Mean Corpuscular Volume 91.5 fL (80-100); Mean Platelet Volume 11.9 fL (7.4-10.4); Monocytes # (auto) 0.56 K/uL (0.11-0.59); Monocytes % (auto) 6.8 %; Neutrophils # (auto) 5.82 K/uL (1.4-6.5); Neutrophils % (auto) 71.3 %; Platelet Count 219 K/uL (130-400); RDW Coefficient of Variation 14.5 % (11.5-14.5); Red Blood Count 5.68 M/uL (4.7-6.1); White Blood Count 8.18 K/uL (4.8-10.8)
[2022-02-06 13:50] LABS: Troponin I High Sensitivity 6.8 pg/ml (0-20)
[2022-02-06 13:51] LABS: Alanine Aminotransferase 26 U/L (7-52); Albumin Globulin Ratio 1.4 (0.9-2); Albumin Level 4.3 gm/dl (3.4-5.0); Alkaline Phosphatase 44 U/L (34-104); Anion Gap 8 (3-11); Aspartate Aminotransferase 27 U/L (13-39); BUN Creatinine Ratio 18.3 (10-20); Bilirubin,Total 2.7 mg/dl (0.2-1.0); Blood Urea Nitrogen 21 mg/dl (6-23); Calcium 9.7 mg/dl (8.5-10.1); Carbon Dioxide 27 mmol/L (21-32); Chloride 100 mmol/L (98-107); Est GFR (African American) 76.4 ml/min; Est GFR (Non-African American) 65.9 ml/min; Globulin 3.1 gm/dl (2.5-4.0); Glucose 128 mg/dl (70-99(Fasting)); Lipase 7 U/L (11-82); Sodium 135 mmol/L (136-145); Total Protein 7.4 gm/dl (6.0-8.3)
[2022-02-06] MEDS ORDERED: METOPROLOL TARTRATE 25 MG TAB PO STA (14:05)
[2022-02-06] MEDS ORDERED: APIXABAN 5 MG TABLET PO STA (14:25)
--- NOTE | 2022-02-06 15:19 | History & Physical Report ---
Date of Service February 06, 2022 Assessment & Plan (1) Atrial flutter with rapid ventricular response: Plan: Despite taking carvedilol 6.25mg PO this morning rates average 130 bpm on arrival in the ER. Now improved to 80-90 bpm after diltiazem 10mg IV and 5mg/hr drip started. Will try to improve rates using carvedilol alone since he already takes this and increase to 12.5mg PO BID, wean off IV diltiazem overnight if able. [id number] - 2. Recommend anticoagulation and will start on Eliquis 5mg PO BID TSH with AM labs TTE Consult cardiology as subsequently may benefit from ablation (2) Elevated bilirubin: Plan: Isolated elevation (other LFTs normal), also present on prior occasions but not to this extent in absence of liver disease. Suspect [place]. Will get direct/indirect levels with labs in AM (3) Sleep apnea: Plan: BiPAP HS (4) Hypertension: Plan: Continue carvedilol as above (5) Benign prostatic hyperplasia with urinary obstruction: Plan: Continue home doses of tadalafil and tamsulosin (6) Hypogonadism: Plan: Can continue testosterone injections as outpatient (7) Crohn disease: Plan: Maintained on Stelara. No current active flare. (8) Morbid obesity: Plan: VTE Prophylaxis - Eliquis Diet - heart healthy Disposition - admit to PCU Admission and Anticipated Discharge Date Admission Date: February 06, 2022 History of Present Illness Chief Complaint: Chest pain Primary Care Provider: Chantale Morales DO Prakash Brewster is a 66 year old male who presents to the ER due to an outpatient physical finding him in rapid atrial flutter. He reports no chest pain, shortness of breath, palpitations or lightheadedness. He started on a pre-wokout supplement which he cannot remember the brand or name currently about 4 weeks ago and noticed some palpitations lasting for about an hour following this. He has been taking the drinking intermittently since then and wonders whether this has caused his heart to race. He has no history of heart attacks or strokes. In the ER he was noted to be in atrial flutter with a rapid ventricular rate in the 130s. He had already taken his carvedilol this morning therefore was given 10mg IV diltiazem and started on 5mg/hr drip. His heart rate improved to 70-80 bpm still in atrial flutter and he was referred to medicine for admission and ongoing management of this. Allergies Allergy/AdvReac Type Severity Reaction Status Date / Time cefdinir Allergy Mild Rash Verified 02/06/22 15:09 sodium benzoate Allergy Mild Rash Verified 02/06/22 15:09 Sulfa (Sulfonamide Allergy Mild RASH Verified 02/06/22 15:09 Antibiotics) Home Medications Medication Instructions Recorded Confirmed Type folic acid 1 mg tablet 1 mg PO QAM #90 tab 03/07/19 02/06/22 History BiPap Supplies #1 ea 05/02/19 11/11/21 Rx miscellaneous medical supply #1 ea 05/19/19 11/11/21 Rx cholecalciferol (vitamin D3) 125 10,000 units PO QAM 10/13/20 02/06/22 History mcg (5,000 unit) capsule multivitamin (Multiple Vitamins) 1 tab PO QAM 10/13/20 02/06/22 History omega 5-jtu-jpp-fish oil 1,000 mg 1 cap PO QAM 10/13/20 02/06/22 History (120 mg-180 mg) capsule (Fish Oil) tadalafil 5 mg tablet 5.5 mg PO QAM 10/13/20 02/06/22 History diphenoxylate-atropine 2.5 1 tab PO BID PRN #60 tab 02/21/21 02/06/22 Rx mg-0.025 mg tablet BI-PAP/Supplies #1 ea 06/22/21 11/11/21 Rx dicyclomine 20 mg tablet 20 mg PO TID PRN tab 07/12/21 02/06/22 History carvedilol 6.25 mg tablet (Coreg) 6.25 mg PO BID #180 tab 08/23/21 02/06/22 Rx tamsulosin 0.4 mg capsule 0.4 mg PO QAM #90 cap 08/23/21 02/06/22 Rx allopurinol 300 mg tablet 300 mg PO QAM 10/28/21 02/06/22 History ascorbic acid (vitamin C) 1,000 mg 1 g PO QAM 10/28/21 02/06/22 History tablet (Vitamin C) cetirizine 10 mg tablet 10 mg PO DAILY PRN 10/28/21 02/06/22 History fluticasone propionate 50 2 spray INTRANASAL HS PRN 10/28/21 02/06/22 History mcg/actuation nasal spray,suspension (Allergy Relief (fluticasone)) ustekinumab 90 mg/mL subcutaneous 90 mg SQ Q8WK #1 ml 11/03/21 02/06/22 Rx syringe (Stelara) testosterone cypionate 100 mg/mL 100 mg IM Q7D #10 ml 01/11/22 02/06/22 Rx intramuscular oil Past Med/Surg History Medical History Abscess in epidural space of lumbar spine (~2017) Arthritis Benign prostatic hyperplasia with urinary obstruction Crohn's disease of ileum Hyperlipidemia Hypertension IBS (irritable bowel syndrome) Lumbar spinal stenosis Methicillin susceptible Staphylococcus aureus infection Peyronie's disease Sciatica Sleep apnea Vitamin D deficiency Surgical History Biceps tendon rupture Fusion of spine History of Achilles tendon repair History of colonoscopy History of difficult intubation History of discectomy History of hydrocelectomy (~10/23/20) History of left hip replacement (12/26/16) History of left shoulder replacement History of repair of ACL History of thumb surgery (05/2020) History of tonsillectomy and adenoidectomy History of tooth extraction History of total right knee replacement (TKR) History of umbilical hernia repair S/P carpal tunnel release (05/2020) S/P hardware removal (10/2017) Family History Mother Carotid atherosclerosis Acute myocardial infarction Stroke Father , FATHER OF MY AT AGE 54; PATERNAL GRANDFATHER OF [place] IN HIS 40'S Acute myocardial infarction Hypertension Uncle Colorectal cancer Grandmother (Paternal) Diabetes Denies family history of Ovarian cancer Prostate cancer Breast cancer Crohn's colitis Ulcerative colitis Social History Smoking Status: Never smoker Second Hand Exposure: No; Hx Alcohol Use: No Hx Substance Use: No Preferred Language: Czech Communication Ability: Effective Visual Impairment: No Limitations Hearing Ability: Normal Scrap Picker Required: No Beliefs That Will Affect Care: Evangelical Evangelical Beliefs: Mandaeism marital status: Current Living Situation: Spouse Current Living Situation Comment: HAS A DOG current occupational status: employed 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 How many Children do You have: 5 Feels Safe at Home: Yes Safety Concerns: Feels Safe At This Time Childhood Exposure to Second-Hand Smoke: Yes caffeine: Yes during the past year weight has: remained stable Dental Care, Regularly: Yes Physical Activity Frequency: Daily Seatbelt Use: always Sunscreen Use: Yes Assistive Devices: BiPap Review of Systems Review of Systems: All systems reviewed & are unremarkable except as noted in HPI & below Physical Exam Constitutional: WD/WN, vitals as above + morbidly obese Eyes: + anicteric sclerae; normal pupil size Respiratory: normal respiratory effort, lungs clear to auscultation Cardiovascular: Rate/Rhythm: regular rate and + irregularly irregular Heart Sounds: no murmur Extremities: normal capillary refill; no calf tenderness and no pedal edema Gastrointestinal (Abdomen): normal bowel sounds, soft, nontender, no hepatosplenomegaly Musculoskeletal: no cyanosis or clubbing, extremities motor strength 5/5 Skin: no rashes, warm and dry Neurologic: moves all extremities and awake; not confused Psychiatric: A+Ox3, euthymic affect Results & Data Results & Data ([facility]) Vital Signs (Past 12 Hours) Vital Signs Temp Pulse Resp BP Pulse Ox 02/06/22 15:00 79 24 117/72 95 02/06/22 14:30 76 16 130/62 92 02/06/22 14:01 105 H 21 108/77 96 02/06/22 13:30 93 H 12 122/61 92 02/06/22 13:04 96 02/06/22 13:00 115 H 14 124/74 93 02/06/22 12:45 36.6 C 151 H 18 158/95 H 96 Laboratory Results Abnormal lab results 02/06/22 02/06/22 Range/Units 12:59 12:59 RDW Std Deviation 49.0 H (36.4-46.3) fL MPV 11.9 H (7.4-10.4) fL Sodium 135 L (136-145) mmol/L Glucose 128 H (70-99(Fasting)) mg/dl Total Bilirubin 2.7 H (0.2-1.0) mg/dl Lipase 7 L (11-82) U/L Diagnostic Findings SINGLE VIEW CHEST CLINICAL HISTORY: Atypical chest pain. FINDINGS: An AP, portable, upright chest radiograph is compared to study dated 10/02/2020. The heart is top normal for projection. The pulmonary vasculature is noncongested. The lungs and pleural spaces are clear. No pneumothorax is seen. The bony thorax is grossly intact. A left shoulder arthroplasty is in place. Arthritic change is seen in the right shoulder. IMPRESSION: No acute cardiopulmonary abnormality. Medications Administered ER Medications Given: Diltiazem 10mg IV and 5mg /hr IV drip ECG Indication: tachycardia Rate (beats per minute): 134 Rhythm: atrial flutter (variable AV block) Findings: + nonspecific-ST abn Comparison ECG Date: from (July 26, 2018) Change: the following changes noted (Atrial flutter replaced sinsu rhythm) Code Status & VTE Plan Code Status Full VTE Prophylaxis Plan VTE Prophylaxis will be ordered: Yes PG Care Time/CCT Total # of Minutes Spent Total Time Spent with Patient: Total time spent is greater than 50% in coordination of care (as documented) at patient's floor/unit and/or counseling patient: Coding Level of Care Code 79268 Initial Inpt Care Lvl 2 Diagnoses Atrial flutter with rapid ventricular response I48.92 Elevated bilirubin R17 Sleep apnea G47.30 Hypertension I10 Benign prostatic hyperplasia with urinary obstruction N40.1; N13.8 Hypogonadism Crohn disease K50.90 Morbid obesity E66.01
[2022-02-06] MEDS ORDERED: ONDANSETRON INJ 2 MG/ML 2 ML VIAL IV PRN (18:12)
[2022-02-06] MEDS ORDERED: ACETAMINOPHEN 325 MG TAB PO PRN (18:12)
--- NOTE | 2022-02-06 18:22 | XCELERA ---
[id number] \\[id number]
[2022-02-06] MEDS ORDERED: FLUTICASONE PROPIONATE NA SPR 16 GM BTL NAE PRN (18:34)
--- NOTE | 2022-02-06 18:39 | Electrocardiogram Report ---
Test Reason : Blood Pressure : / mmHG Vent. Rate : 134 BPM Atrial Rate : 300 BPM P-R Int : 000 ms QRS Dur : 084 ms QT Int : 274 ms P-R-T Axes : 000 067 055 degrees QTc Int : 409 ms Atrial flutter with variable A-V block Abnormal ECG When compared with ECG of 26-JUL-2018 11:49, Atrial flutter has replaced Sinus rhythm Vent. rate has increased BY 70 BPM Non-specific change in ST segment in Lateral leads Confirmed by Bin Lockwood ([id number] on 02/06/2022 6:38:53 PM Referred By: Confirmed By:Alejandro Lockwood
[2022-02-06] MEDS: carvediloL 12.5 MG TAB PO SCH (20:53)
[2022-02-07 07:42] LABS: Basophils # (auto) 0.02 K/uL (0-0.2); Basophils % (auto) 0.3 %; Eosinophils % (auto) 1.4 %; Hematocrit (blood only) 49.6 % (42-52); Hemoglobin 16.9 g/dL (14.0-18.0); Immature Granulocytes # (auto) 0.01 K/uL (0.00-0.02); Immature Granulocytes % (auto) 0.1 %; Lymphocytes # (auto) 2.12 K/uL (1.2-3.4); Lymphocytes % (auto) 29.6 %; Mean Corpuscular Hemoglobin 31.3 pg (25-34); Mean Corpuscular Hgb Conc 34.1 g/dL (32-36); Mean Corpuscular Volume 91.9 fL (80-100); Mean Platelet Volume 11.3 fL (7.4-10.4); Monocytes # (auto) 0.65 K/uL (0.11-0.59); Monocytes % (auto) 9.1 %; Neutrophils # (auto) 4.27 K/uL (1.4-6.5); Neutrophils % (auto) 59.5 %; Platelet Count 204 K/uL (130-400); RDW Coefficient of Variation 14.7 % (11.5-14.5); RDW Standard Deviation 49.8 fL (36.4-46.3); White Blood Count 7.17 K/uL (4.8-10.8)
[2022-02-07 08:07] LABS: Alanine Aminotransferase 22 U/L (7-52); Albumin Globulin Ratio 1.4 (0.9-2); Alkaline Phosphatase 38 U/L (34-104); Anion Gap 7 (3-11); Aspartate Aminotransferase 20 U/L (13-39); BUN Creatinine Ratio 21.8 (10-20); Bilirubin Direct 0.2 mg/dl (0-0.2); Bilirubin,Total 2.4 mg/dl (0.2-1.0); Blood Urea Nitrogen 22 mg/dl (6-23); Carbon Dioxide 27 mmol/L (21-32); Chloride 102 mmol/L (98-107); Est GFR (African American) 89.4 ml/min; Est GFR (Non-African American) 77.1 ml/min; Globulin 2.9 gm/dl (2.5-4.0); Glucose 99 mg/dl (70-99(Fasting)); Magnesium 1.9 mg/dl (1.7-2.4); Potassium 4.2 mmol/L (3.5-5.1); Sodium 136 mmol/L (136-145); Total Protein 6.9 gm/dl (6.0-8.3)
[2022-02-07] MEDS: carvediloL 12.5 MG TAB PO SCH ×2 (09:47→20:52)
[2022-02-07] MEDS: allopurinoL 300 MG TAB PO SCH (09:48)
[2022-02-07] MEDS: FOLIC ACID 1 MG TAB PO SCH (09:48)
[2022-02-07] MEDS: APIXABAN 2.5 MG TAB PO SCH ×2 (09:49→09:52)
[2022-02-07] MEDS: TAMSULOSIN HCL 0.4 MG CAP PO SCH (09:50)
--- NOTE | 2022-02-07 11:57 | Hospitalist Progress Note ---
Date of Service February 07, 2022 Assessment & Plan (1) Atrial flutter with rapid ventricular response: Plan: Asymptomatic, was found to be in atrial flutter with RVR at a routine work physical exam prior to admission Carvedilol 6.25 mg twice daily continued on admission and subsequently increased to 12.5 On admit received 10 mg diltiazem IV and 5 mg/h drip. Adequately controlled. Carvedilol increased to 12.5 mg and drip discontinued [id number] 2. Was started on Eliquis 5 mg p.o. twice daily on admission. Previously not on anticoagulation Reviewed with patient and cardiology. Anticipate DAVID and cardioversion tomorrow. Continue Eliquis for stroke prevention, outpatient follow-up for ablation. TTE with normal LV SF, mild concentric LVH, no significant valvular disease TSH within normal limits. Suspect 2/2 TESHA (2) Elevated bilirubin: Plan: Isolated T bili downtrending at 2.4, direct 0.2 suspect Gilbert's No abdominal symptoms or transaminitis (3) Sleep apnea: Plan: BiPAP HS (4) Hypertension: Plan: Continue carvedilol as above (5) Benign prostatic hyperplasia with urinary obstruction: Plan: Continue home doses of tadalafil and tamsulosin (6) Hypogonadism: Plan: Can continue testosterone injections as outpatient (7) Crohn disease: Plan: Maintained on Stelara. No current active flare. (8) Morbid obesity: Plan: VTE Prophylaxis - Eliquis Diet - heart healthy Disposition - admit to PCU Admission and Anticipated Discharge Date Admission Date: February 06, 2022 Subjective Seen the bedside both in the morning and on afternoon reassessment. In the morning remains in atrial flutter but with well-controlled rate 7080s. At bed side patient has no symptoms of this, reports he did not know that he had atrial flutter to begin with and only new beaks was picked up on a routine work physical. He continues to have no chest pain, chest pressure, lightheadedness, dizziness, shortness of breath. History of TESHA. Reviewed A. fib versus a flutter, patient aware that flutter may be recurrent but can be cardioverted to return to a normal rhythm but to do this must be on a blood thinner for a period of time or a DAVID must be performed. This was revisited in afternoon with cardiology, patient agreeable to this. Follow-up as outpatient for ablation evaluation as well. Review of Systems Review of Systems: All systems reviewed & are unremarkable except as noted in Subjective Physical Exam Physical Exam: General: A&Ox3. NAD. Cooperative. HEENT: Atraumatic, normocephalic. Patient and hearing grossly intact. Pupils equal and reactive to light. Pulm: CTAB A&P. -wheezes, -rales, -rhonchi. Symmetrical chest rise. No increase in work of breathing. No respiratory distress. Cardiac: Regular on auscultation and radial palpation, no murmur/rub/gallops. Telemetry reviewed, remains in flutter. Radial pulses intact and symmetrical. Abdominal: Nontender, nondistended, soft. BS present. Ext: Sensation in hands and feet intact without sensory deficit/asymmetry, sensation of legs intact. Patient walking easily and independently. Results & Data Results & Data ([facility]) Vital Signs (Past 12 Hours) Vital Signs Temp Pulse Pulse Resp BP Pulse Ox 02/07/22 08:13 71 02/07/22 07:11 36.3 C L 73 17 134/70 94 02/07/22 04:11 36.5 C 115 H 18 103/66 95 02/07/22 03:05 77 16 94 02/07/22 02:14 58 L 124/68 02/07/22 00:39 74 PG Care Time/CCT Total # of Minutes Spent Total Time Spent with Patient: Total time spent is greater than 50% in coordination of care (as documented) at patient's floor/unit and/or counseling patient: Coding Level of Care Code 42441 Subseq Hosp Care Lvl 2 Diagnoses Atrial flutter with rapid ventricular response I48.92 Elevated bilirubin R17 Sleep apnea G47.30 Hypertension I10 Benign prostatic hyperplasia with urinary obstruction N40.1; N13.8 Hypogonadism Crohn disease K50.90 Morbid obesity E66.01
[2022-02-07] MEDS: APIXABAN 5 MG TABLET PO SCH (20:52)
--- NOTE | 2022-02-07 21:33 | Cardiology Consultation ---
Date of Consultation February 07, 2022 Assessment & Plan (1) Atrial flutter with rapid ventricular response: 1. Atrial flutter: The patient does not appear to have any symptoms referable to the arrhythmia or elevated heart rates. The duration of the arrhythmia is unknown. He appears to have reasonable rate control when resting, somewhat elevated ventricular rates with activity. The etiology of his atrial flutter is likely his sleep apnea. We discussed options for treatment. I suggested a transesophageal echocardiogram and cardioversion to return him to sinus rhythm. Afterwards we could consider more definitive treatment with catheter ablation. Anticoagulation was initiated. He will continue on anticoagulation for several weeks following his cardioversion and indefinitely until ablation is performed. 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 He was noted at that time to have an element of tachycardia and an EKG revealed atrial flutter. He was advised to seek immediate medical attention and drove himself to [facility]. He was discovered to have atrial flutter and admitted for rate control. The patient did not report any specific symptoms. He appears to be an active individual who was able to perform his employment duties without limitation. This involves working on heavy equipment and climbing and lifting. He did not report any sense of palpitations. He has not been aware of any elevated heart rates. He does use exercise equipment and monitor his heart rate and has not noticed any high heart rates recently. He admits to not using the exercise equipment for several days. Did have 1 episode of dizziness recently. This was not presyncopal and did not result in syncope. He generally does not have dizziness. He does have a history of sleep apnea. Allergies Allergy/AdvReac Type Severity Reaction Status Date / Time cefdinir Allergy Mild Rash Verified 02/06/22 15:09 sodium benzoate Allergy Mild Rash Verified 02/06/22 15:09 Sulfa (Sulfonamide Allergy Mild RASH Verified 02/06/22 15:09 Antibiotics) Home Medications Medication Instructions Recorded Confirmed Type folic acid 1 mg tablet 1 mg PO QAM #90 tab 03/07/19 02/06/22 History BiPap Supplies #1 ea 05/02/19 11/11/21 Rx miscellaneous medical supply #1 ea 05/19/19 11/11/21 Rx cholecalciferol (vitamin D3) 125 10,000 units PO QAM 10/13/20 02/06/22 History mcg (5,000 unit) capsule multivitamin (Multiple Vitamins) 1 tab PO QAM 10/13/20 02/06/22 History omega 1-eto-ynh-fish oil 1,000 mg 1 cap PO QAM 10/13/20 02/06/22 History (120 mg-180 mg) capsule (Fish Oil) tadalafil 5 mg tablet 5.5 mg PO QAM 10/13/20 02/06/22 History diphenoxylate-atropine 2.5 1 tab PO BID PRN #60 tab 02/21/21 02/06/22 Rx mg-0.025 mg tablet BI-PAP/Supplies #1 ea 06/22/21 11/11/21 Rx dicyclomine 20 mg tablet 20 mg PO TID PRN tab 07/12/21 02/06/22 History carvedilol 6.25 mg tablet (Coreg) 6.25 mg PO BID #180 tab 08/23/21 02/06/22 Rx tamsulosin 0.4 mg capsule 0.4 mg PO QAM #90 cap 08/23/21 02/06/22 Rx allopurinol 300 mg tablet 300 mg PO QAM 10/28/21 02/06/22 History ascorbic acid (vitamin C) 1,000 mg 1 g PO QAM 10/28/21 02/06/22 History tablet (Vitamin C) cetirizine 10 mg tablet 10 mg PO DAILY PRN 10/28/21 02/06/22 History fluticasone propionate 50 2 spray INTRANASAL HS PRN 10/28/21 02/06/22 History mcg/actuation nasal spray,suspension (Allergy Relief (fluticasone)) ustekinumab 90 mg/mL subcutaneous 90 mg SQ Q8WK #1 ml 11/03/21 02/06/22 Rx syringe (Stelara) testosterone cypionate 100 mg/mL 100 mg IM Q7D #10 ml 01/11/22 02/06/22 Rx intramuscular oil Patient History Medical History Abscess in epidural space of lumbar spine (~2017) Arthritis Benign prostatic hyperplasia with urinary obstruction Crohn's disease of ileum Hyperlipidemia Hypertension IBS (irritable bowel syndrome) Lumbar spinal stenosis Methicillin susceptible Staphylococcus aureus infection Peyronie's disease Sciatica Sleep apnea Vitamin D deficiency Surgical History Biceps tendon rupture Fusion of spine History of Achilles tendon repair History of colonoscopy History of difficult intubation History of discectomy History of hydrocelectomy (~10/23/20) History of left hip replacement (12/26/16) History of left shoulder replacement History of repair of ACL History of thumb surgery (05/2020) History of tonsillectomy and adenoidectomy History of tooth extraction History of total right knee replacement (TKR) History of umbilical hernia repair S/P carpal tunnel release (05/2020) S/P hardware removal (10/2017) Family History Mother Carotid atherosclerosis Acute myocardial infarction Stroke Father , FATHER OF MY AT AGE 54; PATERNAL GRANDFATHER OF [place] IN HIS 40'S Acute myocardial infarction Hypertension Uncle Colorectal cancer Grandmother (Paternal) Diabetes Denies family history of Ovarian cancer Prostate cancer Breast cancer Crohn's colitis Ulcerative colitis Social History Smoking Status: Never smoker Second Hand Exposure: No; Hx Alcohol Use: No Hx Substance Use: No Preferred Language: Latvian Communication Ability: Effective Visual Impairment: No Limitations Hearing Ability: Normal Technical Support Manager Required: No Beliefs That Will Affect Care: Hinduism Hinduism Beliefs: Orthodoxy marital status: Current Living Situation: Spouse Current Living Situation Comment: HAS A DOG current occupational status: employed 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 No history of chest pain at rest or with exertion. Results & Data ([facility]) Vital Signs (Past 12 Hours) Vital Signs Temp Pulse Resp BP BP Pulse Ox 02/07/22 19:30 36.9 C 60 20 120/78 94 02/07/22 17:00 36.8 C 69 18 120/72 96 02/07/22 12:00 36.5 C 87 18 127/67 97 Laboratory Results Abnormal Lab Results 02/07/22 02/07/22 02/07/22 07:16 07:16 07:16 WBC 7.17 RBC 5.40 Hgb 16.9 Hct 49.6 MCV 91.9 MCH 31.3 MCHC 34.1 RDW Std Deviation 49.8 H RDW Coeff of Kd 14.7 H Plt Count 204 MPV 11.3 H Immature Gran % (Auto) 0.1 Neut % (Auto) 59.5 Lymph % (Auto) 29.6 [place]orne % (Auto) 9.1 Eos % (Auto) 1.4 Baso % (Auto) 0.3 Neut # (Auto) 4.27 Lymph # (Auto) 2.12 [place] # (Auto) 0.65 H Eos # (Auto) 0.10 Baso # (Auto) 0.02 Immature Gran # (Auto) 0.01 Sodium 136 Potassium 4.2 Chloride 102 Carbon Dioxide 27 Anion Gap 7 BUN 22 Creatinine 1.01 Est Cr Clr Drug Dosing Not Reportable Est GFR ( Amer) 89.4 Est GFR (Non-Af Amer) 77.1 BUN/Creatinine Ratio 21.8 H Glucose 99 Calcium 9.0 Magnesium 1.9 Total Bilirubin 2.4 H Direct Bilirubin 0.2 AST 20 ALT 22 Alkaline Phosphatase 38 Total Protein 6.9 Albumin 4.0 Globulin 2.9 Albumin/Globulin Ratio 1.4 TSH 1.488 Diagnostic Findings Echocardiogram performed 02/06/2022 revealed preserved LV systolic function. No significant valvular heart disease PG Care Time/CCT Total # of Minutes Spent Total Time Spent with Patient: Total time spent is greater than 50% in coordination of care (as documented) at patient's floor/unit and/or counseling patient: Coding Level of Care Code 03218 Initial Inpt Care Lvl 3 Diagnoses Atrial flutter with rapid ventricular response I48.92
[2022-02-08] MEDS: carvediloL 12.5 MG TAB PO SCH (08:22)
[2022-02-08] MEDS: allopurinoL 300 MG TAB PO SCH (08:22)
[2022-02-08] MEDS: FOLIC ACID 1 MG TAB PO SCH (08:22)
[2022-02-08] MEDS: APIXABAN 5 MG TABLET PO SCH (08:22)
[2022-02-08] MEDS: TAMSULOSIN HCL 0.4 MG CAP PO SCH (08:22)
[2022-02-08 08:40] LABS: Basophils # (auto) 0.01 K/uL (0-0.2); Basophils % (auto) 0.1 %; Eosinophils # (auto) 0.08 K/uL (0-0.5); Eosinophils % (auto) 1.1 %; Hematocrit (blood only) 51.6 % (42-52); Hemoglobin 17.3 g/dL (14.0-18.0); Immature Granulocytes # (auto) 0.01 K/uL (0.00-0.02); Immature Granulocytes % (auto) 0.1 %; Lymphocytes # (auto) 1.91 K/uL (1.2-3.4); Mean Corpuscular Hemoglobin 30.7 pg (25-34); Mean Corpuscular Hgb Conc 33.5 g/dL (32-36); Mean Corpuscular Volume 91.7 fL (80-100); Mean Platelet Volume 11.8 fL (7.4-10.4); Monocytes # (auto) 0.61 K/uL (0.11-0.59); Monocytes % (auto) 8.3 %; Neutrophils # (auto) 4.73 K/uL (1.4-6.5); Neutrophils % (auto) 64.4 %; Platelet Count 202 K/uL (130-400); RDW Coefficient of Variation 14.9 % (11.5-14.5); RDW Standard Deviation 50.2 fL (36.4-46.3); Red Blood Count 5.63 M/uL (4.7-6.1); White Blood Count 7.35 K/uL (4.8-10.8)
--- NOTE | 2022-02-08 08:43 | Hospitalist Progress Note ---
Date of Service February 08, 2022 Assessment & Plan (1) Atrial flutter with rapid ventricular response: Plan: Asymptomatic, was found to be in atrial flutter with RVR at a routine work physical exam prior to admission Carvedilol 6.25 mg twice daily increased to 12.5, (briefly on diltiazem infusion) [id number] 2. Was started on Eliquis 5 mg p.o. twice daily on admission. Reviewed with patient and cardiology. Anticipate DAVID and cardioversion 02/08/22. Continue Eliquis for stroke prevention, TTE with normal LV SF, mild concentric LVH, no significant valvular disease TSH within normal limits. Suspect 2/2 TESHA (2) Elevated bilirubin: Plan: Isolated T bili downtrending at 2.4, direct 0.2 suspect Gilbert's No abdominal symptoms or transaminitis (3) Sleep apnea: Plan: BiPAP HS (4) Hypertension: Plan: Continue carvedilol as above (5) Benign prostatic hyperplasia with urinary obstruction: Plan: Continue home doses of tadalafil and tamsulosin (6) Hypogonadism: Plan: Can continue testosterone injections as outpatient (7) Crohn disease: Plan: Maintained on Stelara. No current active flare. (8) Morbid obesity: Plan: VTE Prophylaxis - Eliquis Diet - heart healthy Disposition - admit to PCU Admission and Anticipated Discharge Date Admission Date: February 06, 2022 Results & Data Results & Data ([facility]) Vital Signs (Past 12 Hours) Vital Signs Temp Pulse Pulse Resp BP Pulse Ox 02/08/22 08:27 97.7 F 80 18 126/84 96 02/08/22 07:00 79 02/08/22 04:20 97.3 F L 96 H 18 121/76 94 02/08/22 03:26 73 21 93 02/08/22 01:25 71 19 94 02/08/22 00:22 97.5 F L 75 18 114/69 96 02/07/22 23:47 93 H PG Care Time/CCT Total # of Minutes Spent Total Time Spent with Patient: Total time spent is greater than 50% in coordination of care (as documented) at patient's floor/unit and/or counseling patient: Coding Diagnoses Atrial flutter with rapid ventricular response I48.92 Elevated bilirubin R17 Sleep apnea G47.30 Hypertension I10 Benign prostatic hyperplasia with urinary obstruction N40.1; N13.8 Hypogonadism Crohn disease K50.90 Morbid obesity E66.01
[2022-02-08 08:53] LABS: BUN Creatinine Ratio 15.1 (10-20); Calcium 9.1 mg/dl (8.5-10.1); Creatinine Clr Calc Pharmacy 102.9 ml/min; Est GFR (African American) 98.8 ml/min; Est GFR (Non-African American) 85.2 ml/min; Potassium 4.2 mmol/L (3.5-5.1)
[2022-02-08] MEDS ORDERED: BENZOCAINE/TETRACAIN/BUTAM 50 APPLN/5 GM CAN EXT ONE (12:32)
--- NOTE | 2022-02-08 12:44 | Anesthesiology Consultation ---
Date of Service February 08, 2022 History Surgery Operation Date: 02/08/22 07:45 Proposed Procedures p Echo Transesophageal - Bin Lockwood MD s Cardioversion - Bin Lockwood MD Height/Weight Height: 5 ft 10 in Weight: 123.2 kg Allergies Allergy/AdvReac Type Severity Reaction Status Date / Time cefdinir Allergy Mild Rash Verified 02/06/22 15:09 sodium benzoate Allergy Mild Rash Verified 02/06/22 15:09 Sulfa (Sulfonamide Allergy Mild RASH Verified 02/06/22 15:09 Antibiotics) Medications Home Medications Medication Instructions Recorded Confirmed Last Taken folic acid 1 mg tablet 1 mg PO QAM #90 tab 03/07/19 02/06/22 02/06/22 BiPap Supplies #1 ea 05/02/19 11/11/21 Unknown miscellaneous medical supply #1 ea 05/19/19 11/11/21 Unknown cholecalciferol (vitamin D3) 125 10,000 units PO QAM 10/13/20 02/06/22 02/06/22 mcg (5,000 unit) capsule multivitamin (Multiple Vitamins) 1 tab PO QAM 10/13/20 02/06/22 02/06/22 omega 0-odf-zxa-fish oil 1,000 mg 1 cap PO QAM 10/13/20 02/06/22 02/06/22 (120 mg-180 mg) capsule (Fish Oil) tadalafil 5 mg tablet 5.5 mg PO QAM 10/13/20 02/06/22 11/06/21 diphenoxylate-atropine 2.5 1 tab PO BID PRN #60 tab 02/21/21 02/06/22 Unknown mg-0.025 mg tablet BI-PAP/Supplies #1 ea 06/22/21 11/11/21 Unknown dicyclomine 20 mg tablet 20 mg PO TID PRN tab 07/12/21 02/06/22 11/06/21 carvedilol 6.25 mg tablet (Coreg) 6.25 mg PO BID #180 tab 08/23/21 02/06/22 02/06/22 tamsulosin 0.4 mg capsule 0.4 mg PO QAM #90 cap 08/23/21 02/06/22 02/06/22 allopurinol 300 mg tablet 300 mg PO QAM 10/28/21 02/06/22 02/06/22 ascorbic acid (vitamin C) 1,000 mg 1 g PO QAM 10/28/21 02/06/22 02/06/22 tablet (Vitamin C) cetirizine 10 mg tablet 10 mg PO DAILY PRN 10/28/21 02/06/22 02/06/22 fluticasone propionate 50 2 spray INTRANASAL HS PRN 10/28/21 02/06/22 02/06/22 mcg/actuation nasal spray,suspension (Allergy Relief (fluticasone)) ustekinumab 90 mg/mL subcutaneous 90 mg SQ Q8WK #1 ml 11/03/21 02/06/22 12/16/21 syringe (Stelara) testosterone cypionate 100 mg/mL 100 mg IM Q7D #10 ml 01/11/22 02/06/22 02/03/22 intramuscular oil Active Medications Generic Name Dose Route Start Last Admin Trade Name Freq PRN Reason Stop Dose Admin Allopurinol 300 mg 02/07/22 09:00 02/08/22 08:22 Allopurinol 300 Mg Tab PO 03/09/22 08:59 Not Given QAM AC Apixaban 5 mg 02/07/22 21:00 02/08/22 08:22 Apixaban 5 Mg Tablet PO 03/09/22 20:59 Not Given BID AC Carvedilol 12.5 mg 02/06/22 21:00 02/08/22 08:22 Carvedilol 12.5 Mg Tab PO 03/08/22 20:59 Not Given BID AC Folic Acid 1 mg 02/07/22 09:00 02/08/22 08:22 Folic Acid 1 Mg Tab PO 03/09/22 08:59 Not Given QAM [facility] Miscellaneous 1 ea 02/07/22 00:00 02/08/22 08:22 Order Awaiting Action: Tadalafil 5.5mg Capsule N/A 03/09/22 00:00 Not Given QS AC Tamsulosin HCl 0.4 mg 02/07/22 09:00 02/08/22 08:22 Tamsulosin Hcl 0.4 Mg Cap PO 03/09/22 08:59 Not Given QAM AC Past Medical History Medical History (Updated 02/08/22 @ 12:45 by Jessi Ruth MD) Abscess in epidural space of lumbar spine (~2018) hx ~2018. multiple back surgeries, prev on suppressive doxycycline Arthritis Atrial flutter with rapid ventricular response Benign prostatic hyperplasia with urinary obstruction Crohn's disease of ileum On Stelara Elevated bilirubin Hyperlipidemia Hypertension IBS (irritable bowel syndrome) Lumbar spinal stenosis Methicillin susceptible Staphylococcus aureus infection dx [address] Brigitte Manjarrez's disease Sciatica hx Sleep apnea BIPAP Vitamin D deficiency Past Family History Family History Mother Carotid atherosclerosis Acute myocardial infarction Stroke Father , FATHER OF MY AT AGE 54; PATERNAL GRANDFATHER OF [place] IN HIS 40'S Acute myocardial infarction Hypertension Uncle Colorectal cancer Grandmother (Paternal) Diabetes Denies family history of Ovarian cancer Prostate cancer Breast cancer Crohn's colitis Ulcerative colitis Past Surgical History Surgical History Biceps tendon rupture RT SIDE REPAIRED Fusion of spine LUMBAR FUSION/REVISION D/T MRSA INFECTION History of Achilles tendon repair LEFT History of colonoscopy last 2019 History of difficult intubation LUMBAR I&D= 11/07/17= GLIDESCOPE #4, ETT 8.0 AT [facility] History of discectomy LUMBAR History of hydrocelectomy (~10/23/20) right hydrocelectomy and cystoscopy History of left hip replacement (12/26/16) History of left shoulder replacement AND REVISION History of repair of ACL RT History of thumb surgery (05/2020) R basal joint arthroplasty, APL tendo graft History of tonsillectomy and adenoidectomy History of tooth extraction History of total right knee replacement (TKR) History of umbilical hernia repair S/P carpal tunnel release (05/2020) R hand S/P hardware removal (10/2017) L spine, secondary to MRSA abscess Social History Smoking Status: Never smoker tobacco type: smokeless tobacco Hx Alcohol Use: No Alcohol type: beer alcohol intake frequency: holidays/special occasions only Hx Substance Use: No substance use type: does not use Physical Exam Vital Signs Last Vital Signs Temp 36.7 C 02/08/22 12:00 Pulse 84 02/08/22 12:00 Resp 20 02/08/22 12:00 BP 126/80 02/08/22 12:00 Pulse Ox 94 02/08/22 12:00 Testing Laboratory Results 02/08/22 07:51 02/08/22 07:51 Electrocardiogram Date: 02/06/22 Atrial flutter with variable A-V block Abnormal ECG When compared with ECG of 26-JUL-2018 11:49, Atrial flutter has replaced Sinus rhythm Vent. rate has increased BY 70 BPM Non-specific change in ST segment in Lateral leads Confirmed by Bin Lockwood ([id number]) on 02/06/2022 6:38:53 PM
[2022-02-08] MEDS ORDERED: LIDOCAINE 2% 20 MG/ML 5 ML SYR IV ONE (13:05)
--- NOTE | 2022-02-08 13:20 | Anesthesiology Progress Note ---
Date of Service February 08, 2022 Anesthesia Post Procedure Vital Signs Vital Signs: Temp Pulse Pulse Resp BP BP Pulse Ox 02/08/22 12:45 103 H 18 163/107 H 97 02/08/22 12:00 36.7 C 84 20 126/80 94 02/08/22 08:27 36.5 C 80 18 126/84 96 02/08/22 07:00 79 02/08/22 04:20 36.3 C L 96 H 18 121/76 94 02/08/22 03:26 73 21 93 02/08/22 01:25 71 19 94 02/08/22 00:22 36.4 C L 75 18 114/69 96 02/07/22 23:47 93 H 02/07/22 19:30 36.9 C 60 20 120/78 94 02/07/22 17:00 36.8 C 69 18 120/72 96 Transfer of Care Handoff Completed per policy Notes Mental Status: alert / awake / arousable and participated in evaluation Patient Amnestic to Procedure: Yes Nausea / Vomiting: adequately controlled Pain: adequately controlled Airway Patency, RR, SpO2: stable & adequate BP & HR: stable & adequate Hydration State: stable & adequate Anesthetic Complications: no major complications apparent and Pt Satisfied with anesthetic care
[2022-02-08] MEDS ORDERED: PROPOFOL IV EMULSION 10 MG/ML 20 ML VIAL IV ONE (13:21)
[2022-02-08] MEDS ORDERED: LIDOCAINE 2% 2 ML VIAL/AMP(20MG/ML) INFIL ONE (13:21)
--- NOTE | 2022-02-08 13:38 | Cardioversion ---
Date of Service February 08, 2022 PG Electrical Cardioversion Rp Electrical Cardioversion Report Procedure performed: Cardioversion Indication: Atrial flutter Staff office professional: Bin Lockwood MD Procedure in detail: The patient was informed of the risks benefits and alternatives to the intended procedure. He understood such which proceed. He was taken to the cardiac catheterization suite holding area. A general anesthetic was administered by the Anesthesiology Service. Once appropriately anesthetized, the patient was cardioverted using 50 joules delivered in a biphasic fashion. This returned the patient to sinus rhythm. The patient tolerated procedure well, there were no immediate complications. Patient was neurologically intact subsequent to the procedure. Impression: Successful cardioversion from atrial flutter to normal sinus rhythm Coding Level of Care Code Cardioversion, elective Additional Codes Electrical Cardioversion Report ([id number])
--- NOTE | 2022-02-08 13:45 | Cardiology Progress Note ---
Date of Service February 08, 2022 Assessment & Plan (1) Atrial flutter with rapid ventricular response: Plan: 1. Atrial flutter: Likely related to his obstructive sleep apnea. Successfully cardioverted today after DAVID did not demonstrate any evidence of left atrial appendage thrombus. He should continue on systemic anticoagulation. His normal outpatient dose of carvedilol can be continued. I will arrange for follow-up in our clinic and we would anticipate scheduling catheter based therapy for permanent fix of atrial flutter. Admission and Anticipated Discharge Date Admission Date: February 06, 2022 Subjective This afternoon the patient claims to be feeling well. No specific complaints. No sense of palpitation. No chest pain. Review of Systems Review of Systems: Per HPI Physical Exam Physical Exam: The patient is alert and oriented. Mood and affect appeared normal. He answered all questions appropriately. HEENT: Pupils are equal and reactive to light and accommodation. Extraocular movements are intact. The sclerae are anicteric. Neuro: Cranial nerves intact Lungs: Clear to auscultation bilaterally. He has good air movement without use of accessory muscles. No rales wheezes or rhonchi. Cardiac: Heart demonstrates an irregular rhythm but normal rate Normal S1 and S2. No murmurs on examination. Pulses: The patient has palpable radial pulses bilaterally that are equal in intensity Extremities: There was no evidence of hypoperfusion. There is no cyanosis or clubbing. There is no edema. Skin: I did not appreciate any rashes on examination today. Results & Data ([facility]) Vital Signs (Past 12 Hours) Vital Signs Temp Pulse Pulse Resp BP Pulse Ox 02/08/22 13:30 79 18 121/88 93 02/08/22 13:15 83 18 167/82 H 96 02/08/22 12:45 103 H 18 163/107 H 97 02/08/22 12:00 36.7 C 84 20 126/80 94 02/08/22 08:27 36.5 C 80 18 126/84 96 02/08/22 07:00 79 02/08/22 04:20 36.3 C L 96 H 18 121/76 94 02/08/22 03:26 73 21 93 Laboratory Results Abnormal Lab Results 02/08/22 02/08/22 07:51 07:51 WBC 7.35 RBC 5.63 Hgb 17.3 Hct 51.6 MCV 91.7 MCH 30.7 MCHC 33.5 RDW Std Deviation 50.2 H RDW Coeff of Kd 14.9 H Plt Count 202 MPV 11.8 H Immature Gran % (Auto) 0.1 Neut % (Auto) 64.4 Lymph % (Auto) 26.0 [place] % (Auto) 8.3 Eos % (Auto) 1.1 Baso % (Auto) 0.1 Neut # (Auto) 4.73 Lymph # (Auto) 1.91 [place] # (Auto) 0.61 H Eos # (Auto) 0.08 Baso # (Auto) 0.01 Immature Gran # (Auto) 0.01 Sodium 137 Potassium 4.2 Chloride 104 Carbon Dioxide 26 Anion Gap 7 BUN 14 Creatinine 0.93 Est Cr Clr Drug Dosing 102.9 Est GFR ( Amer) 98.8 Est GFR (Non-Af Amer) 85.2 BUN/Creatinine Ratio 15.1 Glucose 94 Calcium 9.1 PG Care Time/CCT Total # of Minutes Spent Total Time Spent with Patient: Total time spent is greater than 50% in coordination of care (as documented) at patient's floor/unit and/or counseling patient: Coding Level of Care Code 25757 Subseq Hosp Care Lvl 2 Diagnoses Atrial flutter with rapid ventricular response I48.92
--- NOTE | 2022-02-08 17:09 | XCELERA ---
[id number]
--- NOTE | 2022-02-08 17:41 | Electrocardiogram Report ---
Test Reason : Blood Pressure : / mmHG Vent. Rate : 077 BPM Atrial Rate : 077 BPM P-R Int : 210 ms QRS Dur : 092 ms QT Int : 372 ms P-R-T Axes : 057 012 047 degrees QTc Int : 420 ms Sinus rhythm with 1st degree A-V block Otherwise normal ECG When compared with ECG of 06-FEB-2022 12:52, Sinus rhythm has replaced Atrial flutter Vent. rate has decreased BY [address] no longer elevated in Inferior leads Confirmed by Bin Lockwood ([id number]) on 02/08/2022 5:40:46 PM Referred By: Barb Sweeney Confirmed By:Alejandro Lockwood
--- NOTE | 2022-02-08 18:25 | Discharge Summary ---
Date of Service February 08, 2022 Admission HPI Per Admitting Provider Prakash Brewster is a 66 year old male who presents to the ER due to an outpatient physical finding him in rapid atrial flutter. He reports no chest pain, shortness of breath, palpitations or lightheadedness. He started on a pre-wokout supplement which he cannot remember the brand or name currently about 4 weeks ago and noticed some palpitations lasting for about an hour following this. He has been taking the drinking intermittently since then and wonders whether this has caused his heart to race. He has no history of heart attacks or strokes. In the ER he was noted to be in atrial flutter with a rapid ventricular rate in the 130s. He had already taken his carvedilol this morning therefore was given 10mg IV diltiazem and started on 5mg/hr drip. His heart rate improved to 70-80 bpm still in atrial flutter and he was referred to medicine for admission and ongoing management of this. Principal Diagnosis Atrial flutter status post DAVID and cardioversion Discharge Exam The patient appeared stable Vital signs as documented. Lungs are clear to auscultation and appear unlabored Cardiac exam, Rhythm is regular.. No murmurs, rubs or gallops. Abdominal exam reveals normal bowel sounds, soft non tender, no masses Extremities are nonedematous and both pedal pulses are normal. Neurologic exam is alert and oriented, no focal loss of strength or sensation Skin is without bruises or rashes Psychologically is without concerns for anxiety or depression. Discharge Data Allergies Allergy/AdvReac Type Severity Reaction Status Date / Time cefdinir Allergy Mild Rash Verified 02/06/22 15:09 sodium benzoate Allergy Mild Rash Verified 02/06/22 15:09 Sulfa (Sulfonamide Allergy Mild RASH Verified 02/06/22 15:09 Antibiotics) Consultations 02/06/22 13:43 ED Decision to Admit Stat 02/06/22 18:12 Consult Cardiology Routine Procedures Performed Operation Date: 02/08/22 07:45 Actual Procedures p Echo Transesophageal - Bin Lockwood MD s Echo Color Flow - Bin Lockwood MD Hospital Course (1) Atrial flutter with rapid ventricular response: Asymptomatic, was found to be in atrial flutter with RVR at a routine work physical exam prior to admission Carvedilol 6.25 mg twice daily cardiology does not recommend increased dosing at discharge, (briefly on diltiazem infusion) [id number] 2. Was started on Eliquis 5 mg p.o. twice daily on admission. Reviewed with patient and cardiology. Anticipate DAVID and cardioversion 02/08/22. Continue Eliquis for stroke prevention, TTE with normal LV SF, mild concentric LVH, no significant valvular disease TSH within normal limits. Suspect 2/2 TESHA (2) Elevated bilirubin: Isolated T bili downtrending at 2.4, direct 0.2 suspect Gilbert's No abdominal symptoms or transaminitis (3) Sleep apnea: BiPAP HS (4) Hypertension: Continue carvedilol as above (5) Benign prostatic hyperplasia with urinary obstruction: Continue home doses of tadalafil and tamsulosin (6) Hypogonadism: Can continue testosterone injections as outpatient (7) Crohn disease: Maintained on Stelara. No current active flare. (8) Morbid obesity: Total Time Total Time Spent Total Time Spent (In Minutes): Discharge 30 including 2 visits on the day of discharge Discharge Plan Discharge Items Patient Disposition: Home - Self-Care Reason For Visit: A. FLUTTER WITH RVR Discharge Diagnosis: atrial flutter s/p cardioversion Activity: Per Instructions section Non-emergency contact: [employer] Call non-emergency contact if: your symptoms worsen Follow-up/Referrals: Chantale Morales DO [Primary Care Provider] - Diet: Regular Diet Comment: avoid stimulants, caffiene and excess alcohol Addtl Attending Provider Instructions: Cardioversion is a procedure that uses medicine or electrical shocks to correct arrhythmias. An arrhythmias is a heartbeat that is too slow, too fast, or irregular. It may prevent your body from getting the blood and oxygen it needs. Your heart has 4 chambers, called the atria and ventricles. The atria are at the top of your heart, and the ventricles are at the bottom of your heart. Most arrhythmias that need cardioversion start in the atria. DISCHARGE INSTRUCTIONS: Call 911 for any of the following: * You have any of the following signs of a heart attack: * Squeezing, pressure, or pain in your chest * Youmayalso have any of the following: * Discomfort or pain in your back, neck, jaw, stomach, or arm * Shortness of breath * Nausea or vomiting * Lightheadedness or a sudden cold sweat * You have any of the following signs of a stroke: * Numbness or drooping on one side of your face * Weakness in an arm or leg * Confusion or difficulty speaking * Dizziness, a severe headache, or vision loss * You feel lightheaded, short of breath, and have chest pain. * You cough up blood. * You have trouble breathing. Seek care immediately if: * You feel your heart beating fast or fluttering. * You feel weak or faint. * Your leg or arm is larger than usual, painful, and warm. Contact your healthcare provider if: * Your skin is itchy, swollen, or you have a rash. * You have questions or concerns about your condition or care. Pending Studies at Discharge: No Stand-Alone Forms: My [facility], Opioid Pain Management, Work/School Release, Smoking Cessation Medications and DC Order Prescriptions: New Eliquis 5 mg Tablet 5 mg PO BID Qty: 60 RF: 5 Continued (DME) BiPap Supplies Misc See Dose Instructions .ROUTE .MEDSUPPLY Qty: 1 RF: 0 (DME) miscellaneous medical supply misc See Dose Instructions .ROUTE .MEDSUPPLY Qty: 1 RF: 0 diphenoxylate-atropine 2.5-0.025 mg tablet 1 tab PO BID PRN (Reason: diarrhea) Qty: 60 RF: 2 (DME) BI-PAP/Supplies Misc See Dose Instructions .ROUTE .MEDSUPPLY Qty: 1 RF: 0 tamsulosin 0.4 mg capsule 0.4 mg PO QAM Qty: 90 RF: 1 Stelara 90 mg/mL syringe 90 mg SQ Q8WK Qty: 1 RF: 6 testosterone cypionate 100 mg/mL oil 100 mg IM Q7D Qty: 10 RF: 0 folic acid 1 mg tablet 1 mg PO QAM Qty: 90 RF: 0 dicyclomine 20 mg tablet 20 mg PO TID PRN (Reason: Abdominal Discomfort) RF: 0 multivitamin [Multiple Vitamins] tablet 1 tab PO QAM RF: 0 cholecalciferol (vitamin D3) 5,000 unit capsule 10,000 units PO QAM RF: 0 tadalafil 5 mg tablet 5.5 mg PO QAM RF: 0 omega 4-[id number]-hlg-fish oil [Fish Oil] 1,000 mg (120 mg-180 mg) capsule 1 cap PO QAM RF: 0 cetirizine 10 mg tablet 10 mg PO DAILY PRN (Reason: Allergy Symptoms) RF: 0 allopurinol 300 mg tablet 300 mg PO QAM RF: 0 fluticasone propionate [Allergy Relief (fluticasone)] 50 mcg/actuation spray,suspension 2 spray intranasal HS PRN (Reason: Nasal Congestion) RF: 0 ascorbic acid (vitamin C) [Vitamin C] 1,000 mg Tablet 1 g PO QAM RF: 0 Changed carvedilol 6.25 mg tablet 6.25 mg PO BID Qty: 0 RF: 0 Discontinued carvedilol [Coreg] 6.25 mg tablet 6.25 mg PO BID Qty: 180 RF: 1 Discharge Orders: Discharge Order (Routine); Ordered 02/08/22 Ordered By: Rasheed Cunningham Admission Data Admit Date/Time: 02/06/22 14:23 Attending Provider: Rasheed Cunningham Admit Provider: Jonas Cui Primary Care Provider: Chantale Morales Other Providers: Jonas Cui ; Bin Lockwood Other Interventions: Discharge Summary Assessment (RN) Last Done: 02/08/22 16:05 Coding Level of Care Code D/C DAY MANAGEMENT >30 MINS Diagnoses Atrial flutter with rapid ventricular response I48.92 Elevated bilirubin R17 Sleep apnea G47.30 Hypertension I10 Benign prostatic hyperplasia with urinary obstruction N40.1; N13.8 Hypogonadism Crohn disease K50.90 Morbid obesity E66.01
== END 2022-02-08 16:33 | disposition home or self-care (01) | DRG 309 ==
LOC: ED 12:40 → SUATTDRO 14:23 → 2S 14:23